=== PATIENT | male | born 1980 | race American Indian/Alaskan Native ===

== ENCOUNTER 2020-10-22 11:22 | Inpatient (IN) | payer OTHER, SELFPAY ==
[2020-10-22] MEDS ORDERED: SODIUM CHLORIDE 0.9% 1000 ML 1,000 ML IV ONE ×2 (11:58→14:59)
--- NOTE | 2020-10-22 11:58 | Event Note ---
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 Symptoms associated with a productive cough, fatigue, general aches and pains reports no diarrhea, no constipation, no hemoptysis no hematemesis no hematochezia This initial assessment/diagnostic orders/clinical plan/treatment(s) is/are subject to change based on patients health status, clinical progression and re- assessment by fellow clinical providers in the ED. Further treatment and workup at subsequent clinical providers discretion. Patient/guardian urged not to elope from the ED as their condition may be serious if not clinically assessed and managed. Initial orders include: Shortness of breath work-up recommended Covid screen
--- NOTE | 2020-10-22 12:33 | XRay Report ---
CHEST 2 VIEWS INDICATION / CLINICAL INFORMATION: Dyspnea. COMPARISON: None available. FINDINGS: SUPPORT DEVICES: None. HEART / MEDIASTINUM: No significant abnormality. LUNGS / PLEURA: Bilateral diffuse airspace opacities. No pneumothorax. ADDITIONAL FINDINGS: No significant additional findings. IMPRESSION: 1. Bilateral diffuse airspace opacities compatible with pneumonia. Signer Name: Lemuel Lino MD Signed: 10/22/2020 12:29 PM Workstation Name: [id number]
[2020-10-22 12:42] LABS: Hematocrit 47.2 % (35.5-45.6); Hemoglobin 15.6 gm/dl (11.8-15.2); Mean Corpuscular HGB Conc 33 % (32-34); Mean Corpuscular Volume 92 fl (84-94); Platelet Count 355 K/mm3 (140-440); Red Blood Count 5.12 M/mm3 (3.65-5.03); Red Cell Distribution Width 15.1 % (13.2-15.2)
[2020-10-22 12:55] LABS: Albumin 3.6 g/dL (3.9-5)
[2020-10-22] MEDS ORDERED: dexAMETHasone 4 MG/ML VIAL IV ONE ×2 (13:50→18:00)
[2020-10-22] MEDS ORDERED: cefTRIAXone/NS 1 GM/50 ML 1 GM/50 ML BAG IV ONE (13:51)
[2020-10-22] MEDS ORDERED: AZITHROMYCIN/NS 500 MG/250 ML 500 MG/250 ML BAG IV ONE (13:51)
--- NOTE | 2020-10-22 13:55 | Emergency Department Report ---
HPI - General Chief Complaint: Dyspnea/Respdistress Time Seen by Provider: 10/22/20 13:49 - HPI HPI: This is a 40-year-old -[place] male presents to the emergency department with a complaint of a 3-week history of progressively worsening shortness of breath, nausea with vomiting, dehydration, and the patient says that he has lost 15 pounds. Patient found out he was positive for COVID-19 about 1 week ago. He denies any past medical history. He denies any tobacco or illicit drug use. 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 He has not taken anything for symptoms prior to presentation today. Patient had a room air oxygen saturation of 87%. He went up into the mid to high 90s on 4 L oxygen via nasal cannula. ED Past Medical Hx - Past Medical History Previous Medical History?: No - Surgical History Past Surgical History?: No ED Review of Systems ROS: Stated complaint: SOB Other details as noted in HPI Comment: All other systems reviewed and negative Constitutional: denies: chills, fever Eyes: denies: eye pain, vision change ENT: denies: ear pain, throat pain Respiratory: cough, shortness of breath Cardiovascular: denies: palpitations, edema Endocrine: unexplained weight loss Gastrointestinal: nausea, vomiting Genitourinary: denies: dysuria, discharge Musculoskeletal: myalgia. denies: joint swelling Skin: denies: rash, lesions Neurological: denies: numbness, paresthesias Physical Exam - Physical Exam Vital Signs: Vital Signs 10/22/20 10/22/20 11:33 12:01 Temperature 99.4 F Pulse Rate 96 H Respiratory 18 Rate Blood Pressure 156/83 O2 Sat by Pulse 87 99 Oximetry Physical Exam: GENERAL: The patient is ill-appearing. HENT: Normocephalic. Atraumatic. Patient has moist mucous membranes. EYES: Extraocular motions are intact. NECK: Supple. Trachea is midline. CHEST/LUNGS: Rhonchi bilaterally. There is tachypnea with some mild conversational dyspnea. HEART/CARDIOVASCULAR: Regular. There is no tachycardia. There is no murmur. ABDOMEN: Abdomen is soft, nontender. Patient has normal bowel sounds. There is no abdominal distention. SKIN: Skin is warm and dry. NEURO: The patient is awake, alert, and oriented. The patient is cooperative. The patient has no focal neurologic deficits. Normal speech. MUSCULOSKELETAL: There is no tenderness or deformity. There is no limitation range of motion. ED Course Vital Signs 10/22/20 10/22/20 11:33 12:01 Temperature 99.4 F Pulse Rate 96 H Respiratory 18 Rate Blood Pressure 156/83 O2 Sat by Pulse 87 99 Oximetry ED Medical Decision Making - Lab Data Result diagrams: 10/22/20 12:16 10/22/20 12:16 Lab Results 10/22/20 10/22/20 10/22/20 Range/Units 12:16 12:16 14:04 WBC 12.3 H (4.5-11.0) K/mm3 RBC 5.12 H (3.65-5.03) M/mm3 Hgb 15.6 H (11.8-15.2) gm/dl Hct 47.2 H (35.5-45.6) % MCV 92 (84-94) fl MCH 31 (28-32) pg MCHC 33 (32-34) % RDW 15.1 (13.2-15.2) % Plt Count 355 (140-440) K/mm3 D-Dimer 872.83 H (0-234) ng/mlDDU Sodium 132 L (137-145) mmol/L Potassium 5.0 (3.6-5.0) mmol/L Chloride 98.2 (98-107) mmol/L Carbon Dioxide 19 L (22-30) mmol/L Anion Gap 20 mmol/L BUN 47 H (9-20) mg/dL Creatinine 4.2 H (0.8-1.3) mg/dL Estimated GFR 19 ml/min BUN/Creatinine Ratio 11 % Glucose 123 H (75-100) mg/dL Calcium 9.0 (8.4-10.2) mg/dL Total Bilirubin 0.50 (0.1-1.2) mg/dL AST 127 H (5-40) units/L ALT 113 H (7-56) units/L Alkaline Phosphatase 56 (35-129) units/L Lactate Dehydrogenase (91-180) units/L C-Reactive Protein (0.00-1.30) mg/dL NT-Pro-B Natriuret Pep (0-450) pg/mL Total Protein 8.2 (6.3-8.2) g/dL Albumin 3.6 L (3.9-5) g/dL Albumin/Globulin Ratio 0.8 % 10/22/ Range/Units 14:04 WBC (4.5-11.0) K/mm3 RBC (3.65-5.03) M/mm3 Hgb (11.8-15.2) gm/dl Hct (35.5-45.6) % MCV (84-94) fl MCH (28-32) pg MCHC (32-34) % RDW (13.2-15.2) % Plt Count (140-440) K/mm3 D-Dimer (0-234) ng/mlDDU Sodium (137-145) mmol/L Potassium (3.6-5.0) mmol/L Chloride (98-107) mmol/L Carbon Dioxide (22-30) mmol/L Anion Gap mmol/L BUN (9-20) mg/dL Creatinine (0.8-1.3) mg/dL Estimated GFR ml/min BUN/Creatinine Ratio % Glucose (75-100) mg/dL Calcium (8.4-10.2) mg/dL Total Bilirubin (0.1-1.2) mg/dL AST (5-40) units/L ALT (7-56) units/L Alkaline Phosphatase (35-129) units/L Lactate Dehydrogenase 709 H (91-180) units/L C-Reactive Protein 17.30 H (0.00-1.30) mg/dL NT-Pro-B Natriuret Pep 83.97 (0-450) pg/mL Total Protein (6.3-8.2) g/dL Albumin (3.9-5) g/dL Albumin/Globulin Ratio % - Radiology Data Radiology results: image reviewed interpreted by me: Chest x-ray shows bilateral patchy opacities concerning for pneumonia. - Medical Decision Making This patient presents to the emergency department with a 3-week history of shortness of breath, chills, nausea with vomiting, 15 pound weight loss, cough. He was found to be Covid positive about 1 week ago. The patient presents to the emergency department hypoxic with a room air oxygen saturation of 87%. Initially the patient went up to the mid 90s with 4 L oxygen via nasal cannula. At this time the patient is 89% on 5 L. Respiratory therapy has been contacted to evaluate for high flow. Chest x-ray shows bilateral patchy infiltrates/opacities concerning for pneumonia. Patient's labs are significant for acute renal failure with a GFR of 19, elevated LFTs, and elevated inflammatory markers such as D-dimer, LDH and CRP. Patient has been given IV Decadron, IV antibiotics, IV fluid resuscitation. He will be admitted to the hospital for further evaluation and treatment was accepted for admission by the hospitalist, Dr. Mcnair. Critical Care Time: Yes Critical care time in (mins) excluding proc time.: 35 Critical care attestation.: If time is entered above; I have spent that time in minutes in the direct care of this critically ill patient, excluding procedure time. Critical care time was spent on this patient in doing his initial evaluation, multiple reev aluations, ordering and interpretation of labs and imaging, IV Decadron, IV antibiotics, IV fluid resuscitation, multiple reevaluations of the patient. Critical Care Time: 35 minutes ED Disposition Clinical Impression: Suspected COVID-19 virus infection, Elevated LFTs, Hypoxia Bilateral pneumonia Qualifiers: Pneumonia type: due to unspecified organism Lung location: unspecified part of lung Qualified Code(s): J18.9 - Pneumonia, unspecified organism Acute renal failure Qualifiers: Acute renal failure type: unspecified Qualified Code(s): N17.9 - Acute kidney failure, unspecified Disposition: 09 ADMITTED INPATIENT Is pt being admited?: Yes Condition: Serious Instructions: Bacterial Pneumonia (ED) Time of Disposition: 15:38
[2020-10-22] MEDS ORDERED: ACETAMINOPHEN 325 MG TAB PO PRN (14:57)
[2020-10-22] MEDS ORDERED: ALBUTEROL 2.5 MG/3 ML NEBU IH PRN (14:57)
--- NOTE | 2020-10-22 14:57 | History and Physical Report ---
History of Present Illness Chief complaint: It is hard to breathe History of present illness: 40 YO Male with Obesity Hypoventilation Syndrome, Coronavirus Infection diagnosed 1 week ago presents to ED for evaluation. Patient reports "it is hard for me to breathe". Patient states that he has experienced shortness of breath, subjective fever, loss of sense of smell, loss of sense of taste, fatigue, malaise, nausea, multiple episodes of vomiting, diminished oral intake and a subjective weight loss of 15 pounds over the past 1 week. Patient transported to [facility] via private vehicle for further care and evaluation of the aforementioned symptoms. The patient was seen and evaluated in the emergency department. All lab and imaging studies reviewed. Patient was found to have a pulse oximetry of 84% on exertion which is consistent with acute hypoxemic respiratory failure. Chest x-ray revealed bilateral pneumonia. Patient admitted to medical floor and initiated on coronavirus protocol as well as pneumonia protocol. Patient denies chills, chest pain, palpitations, skin rash. Patient knowledges suspected co ntact with coronavirus positive individuals. No prior admission for review. No medication listed at time of admission reconciliation. Past History Past Medical History: other (See HPI) Past Surgical History: No surgical history, Other (Reviewed) Social history: . denies: smoking, alcohol abuse, prescription drug abuse Family history: hypertension Medications and Allergies Allergies Allergy/AdvReac Type Severity Reaction Status Date / Time No Known Allergies Allergy Verified 10/22/20 15:01 Active Meds: Active Medications Sodium Chloride (Nacl 0.9% 1000 Ml) 1,000 mls @ 125 mls/hr IV ONCE ONE Stop: 10/22/20 19:57 Review of Systems Constitutional: weight loss, fever, fatigue, weakness, malaise Ears, nose, mouth and throat: other (Loss of sense of smell, loss of sense of taste), no ear pain, no decreased hearing Cardiovascular: lightheadedness, no chest pain, no orthopnea Respiratory: cough Gastrointestinal: nausea, vomiting, no abdominal pain Genitourinary Male: no hematuria, no flank pain, no discharge, no urinary frequency, no urinary hesitancy Rectal: no pain, no incontinence, no bleeding Musculoskeletal: no neck stiffness, no neck pain, no shooting arm pain, no low back pain, no shooting leg pain, no leg numbness/tingling Integumentary: no rash, no pruritis, no redness, no wounds, no jaundice Neurological: no head injury, no transient paralysis, no parathesias, no numbness, no tingling Psychiatric: no anxiety, no change in sleep habits, no insomnia, no hypersomnia, no change in libido, no suicidal ideation Endocrine: no cold intolerance, no polyphagia, no polydipsia, no nocturia Hematologic/Lymphatic: no easy bruising, no lymphadenopathy, no lymphedema Allergic/Immunologic: no urticaria, no allergic rhinitis, no persistent infections, no anaphylaxis Exam - Constitutional Vitals: Temp Pulse Resp BP Pulse Ox 99.4 F 96 H 18 156/83 99 10/22/20 11:33 10/22/20 11:33 10/22/20 11:33 10/22/20 11:33 10/22/20 12:01 General appearance: Present: mild distress, obese - EENT Eyes: Present: PERRL ENT: hearing intact, clear oral mucosa - Neck Neck: Present: supple, normal ROM - Respiratory Respiratory effort: labored, accessory muscle use, stridor Respiratory: bilateral: diminished, rhonchi - Cardiovascular Heart Sounds: Present: S1 & S2. Absent: rub, click - Extremities Extremities: pulses symmetrical, No edema Peripheral Pulses: within normal limits - Abdominal General gastrointestinal: Present: soft, non-tender, non-distended, normal bowel sounds Male genitourinary: Present: normal - Integumentary Integumentary: Present: clear, dry, clammy, decreased turgor - Musculoskeletal Musculoskeletal: generalized weakness - Psychiatric Psychiatric: appropriate mood/affect, intact judgment & insight - Neurologic Neurologic: CNII-XII intact, moves all extremities Results - Labs CBC & Chem 7: 10/22/20 12:16 10/22/20 12:16 Labs: Abnormal lab results 10/22/20 10/22/20 10/22/20 Range/Units 12:16 12:16 14:04 WBC 12.3 H (4.5-11.0) K/mm3 RBC 5.12 H (3.65-5.03) M/mm3 Hgb 15.6 H (11.8-15.2) gm/dl Hct 47.2 H (35.5-45.6) % D-Dimer 872.83 H (0-234) ng/mlDDU Sodium 132 L (137-145) mmol/L Carbon Dioxide 19 L (22-30) mmol/L BUN 47 H (9-20) mg/dL Creatinine 4.2 H (0.8-1.3) mg/dL Glucose 123 H (75-100) mg/dL AST 127 H (5-40) units/L ALT 113 H (7-56) units/L Albumin 3.6 L (3.9-5) g/dL Assessment and Plan - Patient Problems (1) Acute hypoxemic respiratory failure Current Visit: Yes Status: Acute Plan to address problem: Chest x-ray, supplemental oxygen, pulse oximetry, nebulizer therapy, pulmonary toilet (2) Pneumonia Current Visit: Yes Status: Acute Plan to address problem: Pneumonia protocol: Chest x-ray, CBC, CMP, supplemental oxygen, pulse oximetry, nebulizer therapy, blood culture. (3) Obesity hypoventilation syndrome Current Visit: Yes Status: Acute Plan to address problem: Balanced diet, increase physical activity at discharge, outpatient pulmonary follow-up for sleep study, (4) Suspected COVID-19 virus infection Current Visit: Yes Status: Acute Plan to address problem: Coronavirus protocol: IV antibiotic therapy, IV steroid therapy, supplemental oxygen, pulse oximetry, vitamin C therapy, vitamin D therapy, zinc therapy, prone positioning while in bed, prophylactic anticoagulation. (5) DVT prophylaxis Current Visit: Yes Status: Acute Plan to address problem: SCDs bilateral lower extremities while in bed, prophylactic anticoagulation.
[2020-10-22 15:06] LABS: C-Reactive Protein 17.3 mg/dL (0.00-1.30)
[2020-10-22 17:11] LABS: Platelet Estimate Consistent w Auto; Promyelocytes # (Manual) 0.4 K/mm3; Total Cells Counted 100
[2020-10-22] MEDS: AZITHROMYCIN/NS 500 MG/250 ML 500 MG/250 ML BAG IV SCH (17:19)
[2020-10-22] MEDS: cefTRIAXone/NS 2 GM/100 ML 2 GM/100 ML BAG IV SCH (18:57)
[2020-10-22] MEDS: oxyCODONE /ACETAMINOPHEN 5-325MG TAB PO PRN (21:15)
[2020-10-22] MEDS: FAMOTIDINE 10 MG TAB PO SCH (22:21)
[2020-10-22] MEDS: HEPARIN 5,000 UNIT/1 ML VIAL SUB-Q SCH (22:22)
[2020-10-22] MEDS: methylPREDNISolone Sod Succinate 40 MG/1 ML INJ IV SCH (22:22)
[2020-10-22] MEDS: ZINC SULFATE 220 MG CAP PO SCH (22:23)
[2020-10-22] MEDS: ASCORBIC ACID 500 MG TAB PO SCH (22:23)
[2020-10-23] MEDS: ONDANSETRON 4 MG/2 ML INJ IV PRN ×2 (01:55→23:42)
[2020-10-23 07:22] LABS: Hemoglobin 15.6 gm/dl (11.8-15.2); Mean Corpuscular HGB Conc 34 % (32-34); Mean Corpuscular Volume 91 fl (84-94); Platelet Count 339 K/mm3 (140-440); Red Blood Count 5.06 M/mm3 (3.65-5.03); Red Cell Distribution Width 14.9 % (13.2-15.2)
[2020-10-23 07:42] LABS: Calcium 8.8 mg/dL (8.4-10.2)
--- NOTE | 2020-10-23 10:05 | Consultation ---
History of Present Illness - Reason for Consult acute renal failure - History of Present Illness Pleasant 40 y/o AAM with no previous PMHx, presented to the ED secondary to worsening shortness of breath and cough over the past 3 weeks. Diagnosed with COVID-19 pneumonia. Initial labs were concerning for KACIE without any previous h/o renal insufficiency for which nephrology is consulted at this time. Past History Past Medical History: other (See HPI) Past Surgical History: No surgical history, Other (Reviewed) Social history: . denies: smoking, alcohol abuse, prescription drug abuse Family history: hypertension Medications and Allergies Allergies Allergy/AdvReac Type Severity Reaction Status Date / Time No Known Allergies Allergy Verified 10/22/20 15:01 Active Meds: Active Medications Acetaminophen (Acetaminophen 325 Mg Tab) 650 mg PO Q4H PRN PRN Reason: Pain MILD(1-3)/Fever >100.5/THOMPSON Last Admin: 10/22/20 17:21 Dose: 650 mg Documented by: Albuterol (Albuterol 2.5 Mg/3 Ml Nebu) 2.5 mg IH Q4HRT PRN PRN Reason: Shortness Of Breath Ascorbic Acid (Ascorbic Acid 500 Mg Tab) 500 mg PO BID [facility] Last Admin: 10/22/20 22:23 Dose: 500 mg Documented by: Cholecalciferol (Cholecalciferol (Vit D3) 1000 Unit (25 Mcg) Tab) 1,000 unit PO QDAY [facility] Famotidine (Famotidine 10 Mg Tab) 10 mg PO BID [facility] Last Admin: 10/22/20 22:21 Dose: 10 mg Documented by: Heparin Sodium (Porcine) (Heparin 5,000 Unit/1 Ml Vial) 5,000 unit SUB-Q Q12HR [facility] Last Admin: 10/22/20 22:22 Dose: 5,000 unit Documented by: Hydromorphone HCl (Hydromorphone 1 Mg/1 Ml Inj) 0.5 mg IV Q12H PRN PRN Reason: Pain , Severe (7-10) Ceftriaxone Sodium (Rocephin/Ns 2 Gm/100 Ml) 2 gm in 100 mls @ 200 mls/hr IV Q24H [facility]; Protocol Last Admin: 10/22/20 18:57 Dose: 200 mls/hr Documented by: Azithromycin (Zithromax/Ns) 500 mg in 250 mls @ 250 mls/hr IV Q24H [facility]; Protocol Last Admin: 10/22/20 17:19 Dose: 250 mls/hr Documented by: Methylprednisolone Sodium Succinate (Methylprednisolone Sod Succinate 40 Mg/1 Ml Inj) 40 mg IV Q8HR [facility] Last Admin: 10/22/20 22:22 Dose: 40 mg Documented by: Ondansetron HCl (Ondansetron 4 Mg/2 Ml Inj) 4 mg IV Q8H PRN PRN Reason: Nausea And Vomiting Last Admin: 10/23/20 01:55 Dose: 4 mg Documented by: Oxycodone/Acetaminophen (Oxycodone /Acetaminophen 5-325mg Tab) 1 tab PO Q12H PRN PRN Reason: Pain, Moderate (4-6) Last Admin: 10/22/20 21:15 Dose: 1 tab Documented by: Sodium Chloride (Sodium Chloride 0.9% 10 Ml Flush Syringe) 10 ml IV BID [facility] Last Admin: 10/22/20 22:23 Dose: 10 ml Documented by: Sodium Chloride (Sodium Chloride 0.9% 10 Ml Flush Syringe) 10 ml IV PRN PRN PRN Reason: LINE FLUSH Zinc Sulfate (Zinc Sulfate 220 Mg Cap) 220 mg PO BID [facility] Last Admin: 10/22/20 22:23 Dose: 220 mg Documented by: Review of Systems Constitutional: fatigue, weakness Cardiovascular: orthopnea Respiratory: cough, congestion Exam - Vital Signs Vital signs: Vital Signs Temp Pulse Resp BP Pulse Ox 99.4 F 96 H 18 156/83 87 10/22/20 11:33 10/22/20 11:33 10/22/20 11:33 10/22/20 11:33 10/22/20 11:33 - General Appearance General appearance: well-developed, well-nourished, appears stated age EENT: ATNC Neck: Present: neck supple Respiratory: Wheezes, Decreased Breath Sounds Heart: regular Gastrointestinal: Present: normal Integumentary: no rash Neurologic: no focal deficit, alert and oriented x3 Musculoskeletal: Present: deferred Psychiatric: cooperative Results - Lab Results 10/23/20 07:06 10/23/20 07:06 Most recent lab results Calcium 8.8 mg/dL (8.4-10.2) 10/23/20 07:06 Assessment and Plan - Patient Problems (1) Acute renal failure Current Visit: Yes Status: Acute Qualifiers: Acute renal failure type: unspecified Qualified Code(s): N17.9 - Acute kidney failure, unspecified Plan to address problem: Likely pre-renal vs ATN. He remains non oliguric at this time. Will obtain renal US, UA, urine electrolytes, and start on gentle IVF hydration. (2) Hyperkalemia Current Visit: Yes Status: Acute Plan to address problem: Likely in the setting of KACIE. Anticipate that with adequate IVF hydration and increased distal tubule sodium delivery, we should see increase in potassium excretion. (3) Pneumonia due to COVID-19 virus Current Visit: Yes Status: Acute Plan to address problem: Management per primary team,/ID (4) Hypoxia Current Visit: Yes Status: Acute Plan to address problem: Stable on supplemental oxygen via NC at this time.
[2020-10-23] MEDS: CHOLECALCIFEROL (VIT D3) 1000 UNIT (25 mcg) TAB PO SCH (10:52)
[2020-10-23] MEDS: ASCORBIC ACID 500 MG TAB PO SCH ×2 (10:52→21:52)
[2020-10-23] MEDS: FAMOTIDINE 10 MG TAB PO SCH ×2 (10:52→21:52)
[2020-10-23] MEDS: ZINC SULFATE 220 MG CAP PO SCH ×2 (10:52→21:52)
[2020-10-23] MEDS: HEPARIN 5,000 UNIT/1 ML VIAL SUB-Q SCH ×2 (10:55→21:52)
[2020-10-23] MEDS: SODIUM CHLORIDE 0.9% 1000 ML 1,000 ML IV SCH ×2 (10:56→22:00)
--- NOTE | 2020-10-23 11:39 | Consultation ---
History of Present Illness Consult date: 10/23/20 Requesting physician: MIGUEL CARLIN Reason for consult: hypoxemia History of present illness: 40 y/o male with acute respiratory failure secondary to COVID 19 pneumonia. Past History Past Medical History: other (See HPI) Past Surgical History: No surgical history, Other (Reviewed) Social history: . denies: smoking, alcohol abuse, prescription drug abuse Family history: hypertension Medications and Allergies Allergies Allergy/AdvReac Type Severity Reaction Status Date / Time No Known Allergies Allergy Verified 10/22/20 15:01 Active Meds: Active Medications Acetaminophen (Acetaminophen 325 Mg Tab) 650 mg PO Q4H PRN PRN Reason: Pain MILD(1-3)/Fever >100.5/THOMPSON Last Admin: 10/22/20 17:21 Dose: 650 mg Documented by: Albuterol (Albuterol 2.5 Mg/3 Ml Nebu) 2.5 mg IH Q4HRT PRN PRN Reason: Shortness Of Breath Ascorbic Acid (Ascorbic Acid 500 Mg Tab) 500 mg PO BID [facility] Last Admin: 10/23/20 10:52 Dose: 500 mg Documented by: Cholecalciferol (Cholecalciferol (Vit D3) 1000 Unit (25 Mcg) Tab) 1,000 unit PO QDAY [facility] Last Admin: 10/23/20 10:52 Dose: 1,000 unit Documented by: Famotidine (Famotidine 10 Mg Tab) 10 mg PO BID [facility] Last Admin: 10/23/20 10:52 Dose: 10 mg Documented by: Heparin Sodium (Porcine) (Heparin 5,000 Unit/1 Ml Vial) 5,000 unit SUB-Q Q12HR [facility] Last Admin: 10/23/20 10:55 Dose: 5,000 unit Documented by: Hydromorphone HCl (Hydromorphone 1 Mg/1 Ml Inj) 0.5 mg IV Q12H PRN PRN Reason: Pain , Severe (7-10) Ceftriaxone Sodium (Rocephin/Ns 2 Gm/100 Ml) 2 gm in 100 mls @ 200 mls/hr IV Q24H [facility]; Protocol Last Admin: 10/22/20 18:57 Dose: 200 mls/hr Documented by: Azithromycin (Zithromax/Ns) 500 mg in 250 mls @ 250 mls/hr IV Q24H [facility]; Protocol Last Admin: 10/22/20 17:19 Dose: 250 mls/hr Documented by: Sodium Chloride (Nacl 0.9% 1000 Ml) 1,000 mls @ 100 mls/hr IV DIRECT [facility] Last Admin: 10/23/20 10:56 Dose: 100 mls/hr Documented by: Methylprednisolone Sodium Succinate (Methylprednisolone Sod Succinate 40 Mg/1 Ml Inj) 40 mg IV Q8HR [facility] Last Admin: 10/22/20 22:22 Dose: 40 mg Documented by: Ondansetron HCl (Ondansetron 4 Mg/2 Ml Inj) 4 mg IV Q8H PRN PRN Reason: Nausea And Vomiting Last Admin: 10/23/20 01:55 Dose: 4 mg Documented by: Oxycodone/Acetaminophen (Oxycodone /Acetaminophen 5-325mg Tab) 1 tab PO Q12H PRN PRN Reason: Pain, Moderate (4-6) Last Admin: 10/22/20 21:15 Dose: 1 tab Documented by: Sodium Chloride (Sodium Chloride 0.9% 10 Ml Flush Syringe) 10 ml IV BID [facility] Last Admin: 10/23/20 10:53 Dose: 10 ml Documented by: Sodium Chloride (Sodium Chloride 0.9% 10 Ml Flush Syringe) 10 ml IV PRN PRN PRN Reason: LINE FLUSH Zinc Sulfate (Zinc Sulfate 220 Mg Cap) 220 mg PO BID [facility] Last Admin: 10/23/20 10:52 Dose: 220 mg Documented by: Physical Examination Vital signs: Vital Signs Temp Pulse Resp BP Pulse Ox 99.4 F 96 H 18 156/83 87 10/22/20 11:33 10/22/20 11:33 10/22/20 11:33 10/22/20 11:33 10/22/20 11:33 Results - Laboratory Findings CBC and BMP: 10/24/20 04:58 10/24/20 04:58 PT/INR, D-dimer D-Dimer 872.83 ng/mlDDU (0-234) H 10/22/20 14:04 Abnormal lab findings: Abnormal Labs 10/22/20 10/22/20 10/22/20 12:16 12:16 14:04 WBC 12.3 H RBC 5.12 H Hgb 15.6 H Hct 47.2 H Seg Neuts % (Manual) 79.0 H Seg Neutrophils # Man 9.7 H D-Dimer 872.83 H Sodium 132 L Potassium Carbon Dioxide 19 L BUN 47 H Creatinine 4.2 H Glucose 123 H AST 127 H ALT 113 H Lactate Dehydrogenase C-Reactive Protein Albumin 3.6 L 10/22/20 10/23/20 10/23/20 14:04 07:06 07:06 WBC RBC 5.06 H Hgb 15.6 H Hct 46.0 H Seg Neuts % (Manual) Seg Neutrophils # Man D-Dimer Sodium 133 L Potassium 5.5 H Carbon Dioxide 21 L BUN 45 H Creatinine 3.2 H Glucose 150 H AST ALT Lactate Dehydrogenase 709 H C-Reactive Protein 17.30 H Albumin - Diagnostic Findings Chest x-ray: image reviewed (bilateral patchy infiltrates) Assessment and Plan 40 y/o male with acute respiratory failure, concern for COVID positive state with pneumonia and renal failure 1. AGree with steroids 2. Prone if able 3. Follow up renal recs 4. If covid positive plus renal failure, extremely guarded prognosis.
--- NOTE | 2020-10-23 12:17 | Progress Note ---
Assessment and Plan Assessment and plan: 40 YO Male with Obesity Hypoventilation Syndrome, Coronavirus Infection diagnosed 1 week ago presents to ED for evaluation. Patient reports "it is hard for me to breathe". Patient states that he has experienced shortness of breath, subjective fever, loss of sense of smell, loss of sense of taste, fatigue, malaise, nausea, multiple episodes of vomiting, diminished oral intake and a subjective weight loss of 15 pounds over the past 1 week. Patient transported to [facility] via private vehicle for further care and evaluation of the aforementioned symptoms. The patient was seen and evaluated in the emergency department. All lab and imaging studies reviewed. Patient was found to have a pulse oximetry of 84% on exertion which is consistent with acute hypoxemic respiratory failure. Chest x-ray revealed bilateral pneumonia. Patient admitted to medical floor and initiated on coronavirus protocol as well as pneumonia protocol. Patient denies chills, chest pain, palpitations, skin rash. Patient knowledges suspected contact with coronavirus positive individuals. No prior admission for review. No medication listed at time of admission reconciliation. 10/23: Patient seen and examined today. We will increase him to high flow due to severe hypoxia. Have consulted pulmonary and also infectious disease. He is started on high-dose steroids. Likely not a candidate for remdesivir due to renal dysfunction. I have encouraged him to prone also discussed with his . Unfortunately he is unvaccinated. His also was affected but he states that hers was mild. Wean oxygen as tolerated. Will defer Actemra to infectious disease team. Renal function showing some slight improvement will give a dose of Kayexalate for the hyperkalemia. Chest x-ray shows bilateral diffuse opacities (1) Acute hypoxemic respiratory failure Current Visit: Yes Status: Acute Plan to address problem: Chest x-ray, supplemental oxygen, pulse oximetry, nebulizer therapy, pulmonary toilet (2) Pneumonia Current Visit: Yes Status: Acute Plan to address problem: Pneumonia protocol: Chest x-ray, CBC, CMP, supplemental oxygen, pulse oximetry, nebulizer therapy, blood culture. (3) Obesity hypoventilation syndrome Current Visit: Yes Status: Acute Plan to address problem: Balanced diet, increase physical activity at discharge, outpatient pulmonary follow-up for sleep study, (4) COVID-19 virus infection Current Visit: Yes Status: Acute Plan to address problem: Coronavirus protocol: IV antibiotic therapy, IV steroid therapy, supplemental oxygen, pulse oximetry, vitamin C therapy, vitamin D therapy, zinc therapy, prone positioning while in bed, prophylactic anticoagulation. (5) Acute kidney injury with vasomotor nephropathy (6) Hyperkalemia (7) DVT prophylaxis Current Visit: Yes Status: Acute Plan to address problem: SCDs bilateral lower extremities while in bed, prophylactic anticoagulation. History Interval history: Patient seen and examined this morning. During my examination noted his saturation was 85% on 4 L of oxygen. Discussed with nursing staff to put him on high flow he denies any chest pain chest weakness. Hospitalist Physical - Physical exam Narrative exam: VITAL SIGNS: Reviewed. GENERAL: The patient appears normally developed, lethargic with weak cough vital signs as documented. HEAD: No signs of head trauma. EYES: Pupils are equal. Extraocular motions intact. EARS: Hearing grossly intact. MOUTH: Oropharynx is normal. NECK: No adenopathy, no JVD. CHEST: Chest with diminished breath sounds bilaterally. No wheezes, rales, or rhonchi. CARDIAC: Regular rate and rhythm. S1 and S2, without murmurs, gallops, or rubs. VASCULAR: No Edema. Peripheral pulses normal and equal in all extremities. ABDOMEN: Soft, non tender and non distended. No rebound or guarding, and no masses palpated. Bowel Sounds normal. MUSCULOSKELETAL: Good range of motion of all major joints. Extremities without clubbing, cyanosis or edema. NEUROLOGIC EXAM: Alert and oriented x 3 No focal sensory or strength deficits. Speech normal. Follows commands. PSYCHIATRIC: Mood normal. SKIN: detail exam as documented in skin assessment - Constitutional Vitals: Temp Pulse Resp BP Pulse Ox 100.3 F H 95 H 22 133/91 92 10/22/20 19:00 10/22/20 19:00 10/22/20 19:00 10/22/20 19:00 10/23/20 09:59 General appearance: Present: mild distress, obese Results - Labs CBC & Chem 7: 10/23/20 07:06 10/23/20 07:06 Labs: Laboratory Last Values WBC 9.8 K/mm3 (4.5-11.0) 10/23/20 07:06 RBC 5.06 M/mm3 (3.65-5.03) H 10/23/20 07:06 Hgb 15.6 gm/dl (11.8-15.2) H 10/23/20 07:06 Hct 46.0 % (35.5-45.6) H 10/23/20 07:06 MCV 91 fl (84-94) 10/23/20 07:06 MCH 31 pg (28-32) 10/23/20 07:06 MCHC 34 % (32-34) 10/23/20 07:06 RDW 14.9 % (13.2-15.2) 10/23/20 07:06 Plt Count 339 K/mm3 (140-440) 10/23/20 07:06 Add Manual Diff Complete 10/22/20 12:16 Total Counted 100 10/22/20 12:16 Seg Neuts % (Manual) 79.0 % (40.0-70.0) H 10/22/20 12:16 Lymphocytes % (Manual) 14.0 % (13.4-35.0) 10/22/20 12:16 Reactive Lymphs % (Man) 1.0 % 10/22/20 12:16 Monocytes % (Manual) 3.0 % (0.0-7.3) 10/22/20 12:16 Promyelocytes % 3.0 % 10/22/20 12:16 Nucleated RBC % Not Reportable 10/22/20 12:16 Seg Neutrophils # Man 9.7 K/mm3 (1.8-7.7) H 10/22/20 12:16 Band Neutrophils # 0.0 K/mm3 10/22/20 12:16 Lymphocytes # (Manual) 1.7 K/mm3 (1.2-5.4) 10/22/20 12:16 Abs React Lymphs (Man) 0.1 K/mm3 10/22/20 12:16 Monocytes # (Manual) 0.4 K/mm3 (0.0-0.8) 10/22/20 12:16 Eosinophils # (Manual) 0.0 K/mm3 (0.0-0.4) 10/22/20 12:16 Basophils # (Manual) 0.0 K/mm3 (0.0-0.1) 10/22/20 12:16 Metamyelocytes # 0.0 K/mm3 10/22/20 12:16 Myelocytes # 0.0 K/mm3 10/22/20 12:16 Promyelocytes # 0.4 K/mm3 10/22/20 12:16 Blast Cells # 0.0 K/mm3 10/22/20 12:16 WBC Morphology Not Reportable 10/22/20 12:16 Hypersegmented Neuts Not Reportable 10/22/20 12:16 Hyposegmented Neuts Not Reportable 10/22/20 12:16 Hypogranular Neuts Not Reportable 10/22/20 12:16 Smudge Cells Not Reportable 10/22/20 12:16 Toxic Granulation Not Reportable 10/22/20 12:16 Toxic Vacuolation Not Reportable 10/22/20 12:16 Dohle Bodies Not Reportable 10/22/20 12:16 Pelger-Huet Anomaly Not Reportable 10/22/20 12:16 Fariba Rods Not Reportable 10/22/20 12:16 Platelet Estimate Consistent w auto 10/22/20 12:16 Clumped Platelets Not Reportable 10/22/20 12:16 Plt Clumps, EDTA Not Reportable 10/22/20 12:16 Large Platelets Not Reportable 10/22/20 12:16 Giant Platelets Not Reportable 10/22/20 12:16 Platelet Satelliting Not Reportable 10/22/20 12:16 Plt Morphology Comment Not Reportable 10/22/20 12:16 RBC Morphology Not Reportable 10/22/20 12:16 Dimorphic RBCs Not Reportable 10/22/20 12:16 Polychromasia Not Reportable 10/22/20 12:16 Hypochromasia Not Reportable 10/22/20 12:16 Poikilocytosis Not Reportable 10/22/20 12:16 Anisocytosis Not Reportable 10/22/20 12:16 Microcytosis Not Reportable 10/22/20 12:16 Macrocytosis Not Reportable 10/22/20 12:16 Spherocytes Not Reportable 10/22/20 12:16 Pappenheimer Bodies Not Reportable 10/22/20 12:16 Sickle Cells Not Reportable 10/22/20 12:16 Target Cells Not Reportable 10/22/20 12:16 Tear Drop Cells Not Reportable 10/22/20 12:16 Ovalocytes Not Reportable 10/22/20 12:16 Helmet Cells Not Reportable 10/22/20 12:16 [place] Bodies Not Reportable 10/22/20 12:16 [place] Rings Not Reportable 10/22/20 12:16 Maggie Cells Not Reportable 10/22/20 12:16 Bite Cells Not Reportable 10/22/20 12:16 Crenated Cell Not Reportable 10/22/20 12:16 Elliptocytes Not Reportable 10/22/20 12:16 Acanthocytes (Spur) Not Reportable 10/22/20 12:16 Rouleaux Not Reportable 10/22/20 12:16 Hemoglobin C Crystals Not Reportable 10/22/20 12:16 Schistocytes Not Reportable 10/22/20 12:16 Malaria parasites Not Reportable 10/22/20 12:16 Calvin Bodies Not Reportable 10/22/20 12:16 Hem Pathologist Commnt No 10/22/20 12:16 D-Dimer 872.83 ng/mlDDU (0-234) H 10/22/20 14:04 Sodium 133 mmol/L (137-145) L 10/23/20 07:06 Potassium 5.5 mmol/L (3.6-5.0) H 10/23/20 07:06 Chloride 101.3 mmol/L (98-107) 10/23/20 07:06 Carbon Dioxide 21 mmol/L (22-30) L 10/23/20 07:06 Anion Gap 16 mmol/L 10/23/20 07:06 BUN 45 mg/dL (9-20) H 10/23/20 07:06 Creatinine 3.2 mg/dL (0.8-1.3) H 10/23/20 07:06 Estimated GFR 26 ml/min 10/23/20 07:06 BUN/Creatinine Ratio 14 % 10/23/20 07:06 Glucose 150 mg/dL (75-100) H 10/23/20 07:06 Calcium 8.8 mg/dL (8.4-10.2) 10/23/20 07:06 Total Bilirubin 0.50 mg/dL (0.1-1.2) 10/22/20 12:16 AST 127 units/L (5-40) H 10/22/20 12:16 ALT 113 units/L (7-56) H 10/22/20 12:16 Alkaline Phosphatase 56 units/L (35-129) 10/22/20 12:16 Lactate Dehydrogenase 709 units/L (91-180) H 10/22/20 14:04 C-Reactive Protein 17.30 mg/dL (0.00-1.30) H 10/22/20 14:04 NT-Pro-B Natriuret Pep 83.97 pg/mL (0-450) 10/22/20 14:04 Total Protein 8.2 g/dL (6.3-8.2) 10/22/20 12:16 Albumin 3.6 g/dL (3.9-5) L 10/22/20 12:16 Albumin/Globulin Ratio 0.8 % 10/22/20 12:16 Procalcitonin 0.50 ng/mL (<0.15) 10/22/20 14:04 Active Medications - Current Medications Current Medications: Generic Name Dose Route Start Last Admin Trade Name Freq PRN Reason Stop Dose Admin Acetaminophen 650 mg 10/22/20 14:57 10/22/20 17:21 Acetaminophen 325 Mg Tab PO 650 mg Q4H PRN Administration Pain MILD(1-3)/Fever >100.5/THOMPSON Albuterol 2.5 mg 10/22/20 14:57 Albuterol 2.5 Mg/3 Ml Nebu IH Q4HRT PRN Shortness Of Breath Ascorbic Acid 500 mg 10/22/20 22:00 10/23/20 10:52 Ascorbic Acid 500 Mg Tab PO 500 mg BID VARUN Administration Cholecalciferol 1,000 unit 10/23/20 10:00 10/23/20 10:52 Cholecalciferol (Vit D3) 1000 Unit (25 Mcg) Tab PO 1,000 unit QDAY VARUN Administration Famotidine 10 mg 10/22/20 22:00 10/23/20 10:52 Famotidine 10 Mg Tab PO 10 mg BID VARUN Administration Heparin Sodium (Porcine) 5,000 unit 10/22/20 22:00 10/23/20 10:55 Heparin 5,000 Unit/1 Ml Vial SUB-Q 5,000 unit Q12HR VARUN Administration Hydromorphone HCl 0.5 mg 10/22/20 14:57 Hydromorphone 1 Mg/1 Ml Inj IV Q12H PRN Pain , Severe (7-10) Ceftriaxone Sodium 2 gm in 100 mls @ 200 mls/hr 10/22/20 15:00 10/22/20 18:57 Rocephin/Ns 2 Gm/100 Ml IV 200 mls/hr Q24H VARUN Administration Protocol Azithromycin 500 mg in 250 mls @ 250 mls/hr 10/22/20 15:00 10/22/20 17:19 Zithromax/Ns IV 250 mls/hr Q24H VARUN Administration Protocol Sodium Chloride 1,000 mls @ 100 mls/hr 10/23/20 11:00 10/23/20 10:56 Nacl 0.9% 1000 Ml IV 100 mls/hr DIRECT VARUN Administration Methylprednisolone Sodium Succinate 40 mg 10/22/20 22:00 10/22/20 22:22 Methylprednisolone Sod Succinate 40 Mg/1 Ml Inj IV 40 mg Q8HR VARUN Administration Ondansetron HCl 4 mg 10/22/20 14:57 10/23/20 01:55 Ondansetron 4 Mg/2 Ml Inj IV 4 mg Q8H PRN Administration Nausea And Vomiting Oxycodone/Acetaminophen 1 tab 10/22/20 14:57 10/22/20 21:15 Oxycodone /Acetaminophen 5-325mg Tab PO 1 tab Q12H PRN Administration Pain, Moderate (4-6) Sodium Chloride 10 ml 10/22/20 22:00 10/23/20 10:53 Sodium Chloride 0.9% 10 Ml Flush Syringe IV 10 ml BID VARUN Administration Sodium Chloride 10 ml 10/22/20 14:57 Sodium Chloride 0.9% 10 Ml Flush Syringe IV PRN PRN LINE FLUSH Zinc Sulfate 220 mg 10/22/20 22:00 10/23/20 10:52 Zinc Sulfate 220 Mg Cap PO 220 mg BID VARUN Administration
[2020-10-23] MEDS ORDERED: SODIUM POLYSTYRENE 15 GM/60 ML ORAL LIQD PO ONE (13:00)
[2020-10-23 13:21] LABS: Bilirubin,Urine NEG (Negative); Blood,Urine MOD (Negative); Color,Urine Yellow (Yellow); Mucus,Urine FEW /HPF
[2020-10-23 14:03] LABS: Chloride, Urine 14.1 mmolL (110-250); Creatinine,Urine 147.6 mg/dL (0.1-20.0)
[2020-10-23] MEDS: oxyCODONE /ACETAMINOPHEN 5-325MG TAB PO PRN (15:07)
[2020-10-23] MEDS: methylPREDNISolone Sod Succinate 40 MG/1 ML INJ IV SCH ×4 (15:10→21:59)
[2020-10-23] MEDS: cefTRIAXone/NS 2 GM/100 ML 2 GM/100 ML BAG IV SCH (15:50)
[2020-10-23 16:37] LABS: Band Neutrophils # (Manual) 0.2 K/mm3; Myelocytes # (Manual) 0.2 K/mm3; Platelet Estimate Consistent w Auto; RBC Morphology Normal; Total Cells Counted 100
[2020-10-23] MEDS: AZITHROMYCIN/NS 500 MG/250 ML 500 MG/250 ML BAG IV SCH (18:00)
--- NOTE | 2020-10-23 19:05 | Ultrasound Report ---
ULTRASOUND RENAL INDICATION: KACIE. COMPARISON: No relevant prior imaging study available. FINDINGS: RIGHT KIDNEY: Size: 12.9 cm. Echogenicity: Normal. Parenchymal thickness: Normal. Hydronephrosis: None. Cyst or mass: None. Stones: None. LEFT KIDNEY: Size: 12.3 cm. Echogenicity: Normal. Parenchymal thickness: Normal. Hydronephrosis: None. Cyst or mass: None. Stones: None. Urinary Bladder: No significant abnormality. Free Fluid: None. Additional Findings: None. IMPRESSION 1. No acute sonographic abnormality of the kidneys. Signer Name: Baltazar Diaz MD Signed: 10/23/2020 7:00 PM Workstation Name: [id number]
[2020-10-23] MEDS: HYDROmorphone 1 MG/1 ML INJ IV PRN (23:42)
[2020-10-24] MEDS ORDERED: HYDROmorphone 1 MG/1 ML INJ IV ONE (02:44)
[2020-10-24 06:18] LABS: Hematocrit 46.9 % (35.5-45.6); Hemoglobin 15.1 gm/dl (11.8-15.2); Mean Corpuscular HGB Conc 32 % (32-34); Mean Corpuscular Volume 94 fl (84-94); Platelet Count 393 K/mm3 (140-440); Red Cell Distribution Width 15.5 % (13.2-15.2)
[2020-10-24 06:21] LABS: Albumin 3.5 g/dL (3.9-5); Calcium 9.2 mg/dL (8.4-10.2)
[2020-10-24] MEDS: methylPREDNISolone Sod Succinate 40 MG/1 ML INJ IV SCH ×3 (06:23→22:06)
[2020-10-24] MEDS ORDERED: DEXTROSE 50% IN WATER (25GM) 50 ML VIAL IV STA (08:46)
[2020-10-24] MEDS ORDERED: INSULIN REGULAR, HUMAN 100 UNITS/1 ML IV STA (08:46)
[2020-10-24] MEDS ORDERED: SODIUM POLYSTYRENE 15 GM/60 ML ORAL LIQD PO ONE (09:00)
[2020-10-24] MEDS ORDERED: DEXTROSE 50% IN WATER (25GM) 50 ML SYRINGE IV STA (09:02)
--- NOTE | 2020-10-24 09:46 | Progress Note ---
Assessment and Plan 40 y/o male with acute respiratory failure, concern for COVID positive state with pneumonia and renal failure 10/24/20: Continue current level of care. Would be mindful of pain management as patient has several meds available and appears to be using all of them. Given his respiratory state, at risk for failure if too many meds provided. Also will not clear as fast given renal failure. Dilaudid is the best choice given his renal insufficiency. Prone if able. 1. AGree with steroids 2. Prone if able 3. Follow up renal recs 4. If covid positive plus renal failure, extremely guarded prognosis. Subjective Date of service: 10/24/20 Interval history: Remains on 10 liter salter. renal function better today. Objective Vital Signs - 12hr 10/23/20 10/24/20 10/24/20 23:00 01:49 02:30 Temperature 97.2 F L 97.9 F Pulse Rate 85 69 Respiratory 41 H 24 Rate Blood Pressure 137/79 142/83 [Left] O2 Sat by Pulse 89 93 90 Oximetry 10/24/20 04:59 Temperature Pulse Rate Respiratory Rate Blood Pressure [Left] O2 Sat by Pulse 90 Oximetry CBC and BMP: 10/24/20 04:58 10/24/20 04:58 ABG, PT/INR, D-dimer: PT/INR, D-dimer D-Dimer 872.83 ng/mlDDU (0-234) H 10/22/20 14:04 Abnormal lab findings: Abnormal Labs 10/22/20 10/22/20 10/22/20 12:16 12:16 14:04 WBC 12.3 H RBC 5.12 H Hgb 15.6 H Hct 47.2 H RDW Seg Neuts % (Manual) 79.0 H Lymphocytes % (Manual) Seg Neutrophils # Man 9.7 H Lymphocytes # (Manual) D-Dimer 872.83 H Sodium 132 L Potassium Carbon Dioxide 19 L BUN 47 H Creatinine 4.2 H Glucose 123 H AST 127 H ALT 113 H Lactate Dehydrogenase C-Reactive Protein Albumin 3.6 L Urine Creatinine Urine Chloride Coronavirus (PCR) 10/22/20 10/23/20 10/23/20 14:04 07:06 07:06 WBC RBC 5.06 H Hgb 15.6 H Hct 46.0 H RDW Seg Neuts % (Manual) 86.0 H Lymphocytes % (Manual) 4.0 L Seg Neutrophils # Man 8.4 H Lymphocytes # (Manual) 0.4 L D-Dimer Sodium 133 L Potassium 5.5 H Carbon Dioxide 21 L BUN 45 H Creatinine 3.2 H Glucose 150 H AST ALT Lactate Dehydrogenase 709 H C-Reactive Protein 17.30 H Albumin Urine Creatinine Urine Chloride Coronavirus (PCR) 10/23/20 10/23/20 10/24/20 13:00 Unknown 04:58 WBC 15.7 H RBC Hgb Hct 46.9 H RDW 15.5 H Seg Neuts % (Manual) Lymphocytes % (Manual) Seg Neutrophils # Man Lymphocytes # (Manual) D-Dimer Sodium Potassium Carbon Dioxide BUN Creatinine Glucose AST ALT Lactate Dehydrogenase C-Reactive Protein Albumin Urine Creatinine 147.6 H Urine Chloride 14.1 L Coronavirus (PCR) Positive A 10/24/20 04:58 WBC RBC Hgb Hct RDW Seg Neuts % (Manual) Lymphocytes % (Manual) Seg Neutrophils # Man Lymphocytes # (Manual) D-Dimer Sodium 135 L Potassium 5.9 H Carbon Dioxide 21 L BUN 46 H Creatinine 2.3 H Glucose 147 H AST 87 H ALT 129 H Lactate Dehydrogenase C-Reactive Protein Albumin 3.5 L Urine Creatinine Urine Chloride Coronavirus (PCR)
[2020-10-24] MEDS: CHOLECALCIFEROL (VIT D3) 1000 UNIT (25 mcg) TAB PO SCH (10:40)
[2020-10-24] MEDS: ASCORBIC ACID 500 MG TAB PO SCH ×2 (10:40→22:06)
[2020-10-24] MEDS: HEPARIN 5,000 UNIT/1 ML VIAL SUB-Q SCH ×2 (10:41→22:06)
--- NOTE | 2020-10-24 11:54 | Progress Note ---
Assessment and Plan - Patient Problems (1) Acute renal failure Current Visit: Yes Status: Acute Qualifiers: Acute renal failure type: unspecified Qualified Code(s): N17.9 - Acute kidney failure, unspecified Plan to address problem: Likely pre-renal etiology He remains non oliguric at this time. renal function is showing appropriate improvement with IV fluid hydration. renal ultrasound did not show any acute abnormalities. (2) Hyperkalemia Current Visit: Yes Status: Acute Plan to address problem: Likely in the setting of KACIE. Anticipate that with adequate IVF hydration and increased distal tubule sodium delivery, we should see increase in potassium excretion. we will write for a dose of Kayexalate 60 gm today. (3) Pneumonia due to COVID-19 virus Current Visit: Yes Status: Acute Plan to address problem: Management per primary team,/ID (4) Hypoxia Current Visit: Yes Status: Acute Plan to address problem: management per pulmonary recommendations. Subjective Date of service: 10/24/20 Interval history: no acute events noted overnight. Renal function is showing slow improvement with gentle IV fluid hydration. Objective - Exam Narrative Exam: patient not directly examined in order to preserve PPE and limit spread of COVID-19. Physical examination from primary team reviewed at this time. - Vital Signs Vital signs: Vital Signs - 12hr 10/24/20 10/24/20 10/24/20 01:49 02:30 04:59 Temperature 97.9 F Pulse Rate 69 Respiratory 24 Rate Blood Pressure 142/83 [Left] O2 Sat by Pulse 93 90 90 Oximetry 10/24/20 10/24/20 09:50 10:07 Temperature 98.2 F Pulse Rate 79 Respiratory 18 Rate Blood Pressure 156/89 [Left] O2 Sat by Pulse 92 94 Oximetry - Lab 10/24/20 04:58 10/24/20 04:58 Most recent lab results Calcium 9.2 mg/dL (8.4-10.2) 10/24/20 04:58 Urine Creatinine 147.6 mg/dL (0.1-20.0) H 10/23/20 13:00 Urine Sodium 34 mmol/L 10/23/20 13:00 Medications & Allergies - Medications Allergies/Adverse Reactions: Allergies No Known Allergies Allergy (Verified 10/22/20 15:01) Active Medications: Generic Name Dose Route Start Last Admin Trade Name Freq PRN Reason Stop Dose Admin Acetaminophen 650 mg 10/22/20 14:57 10/22/20 17:21 Acetaminophen 325 Mg Tab PO 650 mg Q4H PRN Administration Pain MILD(1-3)/Fever >100.5/THOMPSON Albuterol 2.5 mg 10/22/20 14:57 Albuterol 2.5 Mg/3 Ml Nebu IH Q4HRT PRN Shortness Of Breath Ascorbic Acid 500 mg 10/22/20 22:00 10/24/20 10:40 Ascorbic Acid 500 Mg Tab PO 500 mg BID VARUN Administration Cholecalciferol 1,000 unit 10/23/20 10:00 10/24/20 10:40 Cholecalciferol (Vit D3) 1000 Unit (25 Mcg) Tab PO 1,000 unit QDAY VARUN Administration Famotidine 10 mg 10/22/20 22:00 10/23/20 21:52 Famotidine 10 Mg Tab PO 10 mg BID VARUN Administration Heparin Sodium (Porcine) 5,000 unit 10/22/20 22:00 10/24/20 10:41 Heparin 5,000 Unit/1 Ml Vial SUB-Q 5,000 unit Q12HR VARUN Administration Hydromorphone HCl 0.5 mg 10/22/20 14:57 10/23/20 23:42 Hydromorphone 1 Mg/1 Ml Inj IV 0.5 mg Q12H PRN Administration Pain , Severe (7-10) Ceftriaxone Sodium 2 gm in 100 mls @ 200 mls/hr 10/22/20 15:00 10/23/20 15:50 Rocephin/Ns 2 Gm/100 Ml IV 10/26/20 15:29 200 mls/hr Q24H VARUN Administration Protocol Azithromycin 500 mg in 250 mls @ 250 mls/hr 10/22/20 15:00 10/23/20 18:00 Zithromax/Ns IV 10/26/20 15:59 250 mls/hr Q24H VARUN Administration Protocol Sodium Chloride 1,000 mls @ 100 mls/hr 10/23/20 11:00 10/23/20 22:00 Nacl 0.9% 1000 Ml IV 100 mls/hr DIRECT VARUN Administration Methylprednisolone Sodium Succinate 40 mg 10/22/20 22:00 10/24/20 06:23 Methylprednisolone Sod Succinate 40 Mg/1 Ml Inj IV 40 mg Q8HR VARUN Administration Ondansetron HCl 4 mg 10/22/20 14:57 10/23/20 23:42 Ondansetron 4 Mg/2 Ml Inj IV 4 mg Q8H PRN Administration Nausea And Vomiting Oxycodone/Acetaminophen 1 tab 10/22/20 14:57 10/23/20 15:07 Oxycodone /Acetaminophen 5-325mg Tab PO 1 tab Q12H PRN Administration Pain, Moderate (4-6) Sodium Chloride 10 ml 10/22/20 22:00 10/23/20 21:52 Sodium Chloride 0.9% 10 Ml Flush Syringe IV 10 ml BID VARUN Administration Sodium Chloride 10 ml 10/22/20 14:57 Sodium Chloride 0.9% 10 Ml Flush Syringe IV PRN PRN LINE FLUSH Zinc Sulfate 220 mg 10/22/20 22:00 10/23/20 21:52 Zinc Sulfate 220 Mg Cap PO 220 mg BID VARUN Administration
--- NOTE | 2020-10-24 13:07 | Consultation ---
History of Present Illness - Reason for Consult Consult date: 10/24/20 - History of Present Illness 40-year-old man past medical history obesity, diagnosed with COVID-19 1 week prior to admission presented to hospital complaining of shortness this is associated with subjective fevers, anosmia, dysgeusia, fatigue. He is also lost 15 pounds over the past week. Hypoxic on admission. Afebrile, white count 15.7. Currently on ceftriaxone and azithromycin with methylprednisolone. Covid positive. Decreased renal function with EGFR 39, improving. Elevated procalcitonin in the setting of KACIE. Elevated liver enzymes. Currently requiring 10 L nasal cannula. Imaging personally reviewed: Chest x-ray: Bilateral diffuse airspace opacities. Review of systems: Deferred to reduce to the risk of transmission of COVID-19 Past History Past Medical History: other (See HPI) Past Surgical History: No surgical history, Other (Reviewed) Social history: . denies: smoking, alcohol abuse, prescription drug abuse Family history: hypertension Medications and Allergies Allergies Allergy/AdvReac Type Severity Reaction Status Date / Time No Known Allergies Allergy Verified 10/22/20 15:01 Active Meds: Active Medications Acetaminophen (Acetaminophen 325 Mg Tab) 650 mg PO Q4H PRN PRN Reason: Pain MILD(1-3)/Fever >100.5/THOMPSON Last Admin: 10/22/20 17:21 Dose: 650 mg Documented by: Albuterol (Albuterol 2.5 Mg/3 Ml Nebu) 2.5 mg IH Q4HRT PRN PRN Reason: Shortness Of Breath Ascorbic Acid (Ascorbic Acid 500 Mg Tab) 500 mg PO BID [facility] Last Admin: 10/24/20 10:40 Dose: 500 mg Documented by: Cholecalciferol (Cholecalciferol (Vit D3) 1000 Unit (25 Mcg) Tab) 1,000 unit PO QDAY [facility] Last Admin: 10/24/20 10:40 Dose: 1,000 unit Documented by: Famotidine (Famotidine 10 Mg Tab) 10 mg PO BID [facility] Last Admin: 10/23/20 21:52 Dose: 10 mg Documented by: Heparin Sodium (Porcine) (Heparin 5,000 Unit/1 Ml Vial) 5,000 unit SUB-Q Q12HR [facility] Last Admin: 10/24/20 10:41 Dose: 5,000 unit Documented by: Hydromorphone HCl (Hydromorphone 1 Mg/1 Ml Inj) 0.5 mg IV Q12H PRN PRN Reason: Pain , Severe (7-10) Last Admin: 10/23/20 23:42 Dose: 0.5 mg Documented by: Ceftriaxone Sodium (Rocephin/Ns 2 Gm/100 Ml) 2 gm in 100 mls @ 200 mls/hr IV Q24H VARUN; Protocol Stop: 10/26/20 15:29 Last Admin: 10/23/20 15:50 Dose: 200 mls/hr Documented by: Azithromycin (Zithromax/Ns) 500 mg in 250 mls @ 250 mls/hr IV Q24H VARUN; Protocol Stop: 10/26/20 15:59 Last Admin: 10/23/20 18:00 Dose: 250 mls/hr Documented by: Sodium Chloride (Nacl 0.9% 1000 Ml) 1,000 mls @ 100 mls/hr IV DIRECT VARUN Last Admin: 10/23/20 22:00 Dose: 100 mls/hr Documented by: Methylprednisolone Sodium Succinate (Methylprednisolone Sod Succinate 40 Mg/1 Ml Inj) 40 mg IV Q8HR [facility] Last Admin: 10/24/20 06:23 Dose: 40 mg Documented by: Ondansetron HCl (Ondansetron 4 Mg/2 Ml Inj) 4 mg IV Q8H PRN PRN Reason: Nausea And Vomiting Last Admin: 10/23/20 23:42 Dose: 4 mg Documented by: Oxycodone/Acetaminophen (Oxycodone /Acetaminophen 5-325mg Tab) 1 tab PO Q12H PRN PRN Reason: Pain, Moderate (4-6) Last Admin: 10/23/20 15:07 Dose: 1 tab Documented by: Sodium Chloride (Sodium Chloride 0.9% 10 Ml Flush Syringe) 10 ml IV BID [facility] Last Admin: 10/23/20 21:52 Dose: 10 ml Documented by: Sodium Chloride (Sodium Chloride 0.9% 10 Ml Flush Syringe) 10 ml IV PRN PRN PRN Reason: LINE FLUSH Zinc Sulfate (Zinc Sulfate 220 Mg Cap) 220 mg PO BID [facility] Last Admin: 10/23/20 21:52 Dose: 220 mg Documented by: Physical Examination - Physical Exam Narrative exam: Physical exam deferred to reduce risk of transmission of COVID-19. Please refer to primary team's note. - Constitutional Vitals: Vital Signs Temp Pulse Resp BP Pulse Ox 98.2 F 79 18 156/89 94 10/24/20 09:50 10/24/20 09:50 10/24/20 09:50 10/24/20 09:50 10/24/20 10:07 Temperature -Last 24 Hours Temperature 98.2 F Temperature 97.9 F Temperature 97.2 F Results - Labs CBC & Chem 7: 10/24/20 04:58 10/24/20 04:58 Labs: Abnormal lab results 10/23/20 10/23/20 10/23/20 Range/Units 07:06 13:00 Unknown WBC (4.5-11.0) K/mm3 Hct (35.5-45.6) % RDW (13.2-15.2) % Seg Neuts % (Manual) 86.0 H (40.0-70.0) % Lymphocytes % (Manual) 4.0 L (13.4-35.0) % Seg Neutrophils # Man 8.4 H (1.8-7.7) K/mm3 Lymphocytes # (Manual) 0.4 L (1.2-5.4) K/mm3 Sodium (137-145) mmol/L Potassium (3.6-5.0) mmol/L Carbon Dioxide (22-30) mmol/L BUN (9-20) mg/dL Creatinine (0.8-1.3) mg/dL Glucose (75-100) mg/dL AST (5-40) units/L ALT (7-56) units/L Albumin (3.9-5) g/dL Urine Creatinine 147.6 H (0.1-20.0) mg/dL Urine Chloride 14.1 L (110-250) mmolL Coronavirus (PCR) Positive A (Negative) 10/24/20 10/24/20 Range/Units 04:58 04:58 WBC 15.7 H (4.5-11.0) K/mm3 Hct 46.9 H (35.5-45.6) % RDW 15.5 H (13.2-15.2) % Seg Neuts % (Manual) (40.0-70.0) % Lymphocytes % (Manual) (13.4-35.0) % Seg Neutrophils # Man (1.8-7.7) K/mm3 Lymphocytes # (Manual) (1.2-5.4) K/mm3 Sodium 135 L (137-145) mmol/L Potassium 5.9 H (3.6-5.0) mmol/L Carbon Dioxide 21 L (22-30) mmol/L BUN 46 H (9-20) mg/dL Creatinine 2.3 H (0.8-1.3) mg/dL Glucose 147 H (75-100) mg/dL AST 87 H (5-40) units/L ALT 129 H (7-56) units/L Albumin 3.5 L (3.9-5) g/dL Urine Creatinine (0.1-20.0) mg/dL Urine Chloride (110-250) mmolL Coronavirus (PCR) (Negative) Assessment and Plan Cultures: Blood culture no growth so far. COVID PCR: positive A/P: 40-year-old man past medical history obesity #Severe COVID-19 pneumonia: Patient presented with a week of symptoms, chest x- ray with diffuse bilateral infiltrates, admission O2 sats on room air. Inflammatory markers elevated #Acute hypoxemic respiratory failure: Likely secondary to COVID-19 infection. Currently on 10L NC #Obesity #KACIE; improving #Elevated transaminases: likely from COVID Recs: -Steroids for 10 days -Remdesivir 200 mg IV q day x 1 followed by 100 mg IV q day x 4 days, as renal function has improved. -Obtain q48-72h inflammatory markers - ferritin, Ddimer, CRP, LDH -Continue ceftriaxone 2 gm IV qday and azithromycin 500 mg PO qday to complete 5 and 3 days respectively. -Anticoagulation per hospital protocol -Proning as able Thank you for the consult, we will continue to follow. Daja Kaye MD [facility] ([facility] O: [phone] F: [phone]
[2020-10-24] MEDS ORDERED: REMDESIVIR 200 MG in SODIUM CHLORIDE 0.9% 250ML 250 ML IV ONE (14:00)
[2020-10-24] MEDS: SODIUM CHLORIDE 0.9% 50 ML IVPB IV SCH (14:07)
[2020-10-24] MEDS: ZINC SULFATE 220 MG CAP PO SCH ×2 (14:58→22:06)
[2020-10-24] MEDS: FAMOTIDINE 10 MG TAB PO SCH ×2 (14:59→22:06)
[2020-10-24] MEDS: cefTRIAXone/NS 2 GM/100 ML 2 GM/100 ML BAG IV SCH (16:00)
[2020-10-24] MEDS: AZITHROMYCIN/NS 500 MG/250 ML 500 MG/250 ML BAG IV SCH (17:57)
--- NOTE | 2020-10-24 18:42 | Progress Note ---
Assessment and Plan Assessment and plan: 40 YO Male with Obesity Hypoventilation Syndrome, Coronavirus Infection diagnosed 1 week ago presents to ED for evaluation. Patient reports "it is hard for me to breathe". Patient states that he has experienced shortness of breath, subjective fever, loss of sense of smell, loss of sense of taste, fatigue, malaise, nausea, multiple episodes of vomiting, diminished oral intake and a subjective weight loss of 15 pounds over the past 1 week. Patient transported to [facility] via private vehicle for further care and evaluation of the aforementioned symptoms. The patient was seen and evaluated in the emergency department. All lab and imaging studies reviewed. Patient was found to have a pulse oximetry of 84% on exertion which is consistent with acute hypoxemic respiratory failure. Chest x-ray revealed bilateral pneumonia. Patient admitted to medical floor and initiated on coronavirus protocol as well as pneumonia protocol. Patient denies chills, chest pain, palpitations, skin rash. Patient knowledges suspected contact with coronavirus positive individuals. No prior admission for review. No medication listed at time of admission reconciliation. 10/23: Patient seen and examined today. We will increase him to high flow due to severe hypoxia. Have consulted pulmonary and also infectious disease. He is started on high-dose steroids. Likely not a candidate for remdesivir due to renal dysfunction. I have encouraged him to prone also discussed with his . Unfortunately he is unvaccinated. His also was affected but he states that hers was mild. Wean oxygen as tolerated. Will defer Actemra to infectious disease team. Renal function showing some slight improvement will give a dose of Kayexalate for the hyperkalemia. Chest x-ray shows bilateral diffuse opacities 10/24 Patient with Covid-19 pneumonia with acute respiratory failure. On Oxygen at 10 l/min. On Remdesivir. KACIE improving. Hyperkalemia worse, Potassium 5.9 today. Kayexalate, Insulin ordered. (1) Acute hypoxemic respiratory failure Current Visit: Yes Status: Acute Plan to address problem: Chest x-ray, supplemental oxygen, pulse oximetry, nebulizer therapy, pulmonary toilet (2) Pneumonia Current Visit: Yes Status: Acute Plan to address problem: Pneumonia protocol: Chest x-ray, CBC, CMP, supplemental oxygen, pulse oximetry, nebulizer therapy, blood culture. (3) Obesity hypoventilation syndrome Current Visit: Yes Status: Acute Plan to address problem: Balanced diet, increase physical activity at discharge, outpatient pulmonary follow-up for sleep study, (4) COVID-19 virus infection Current Visit: Yes Status: Acute Plan to address problem: Coronavirus protocol: IV antibiotic therapy, IV steroid therapy, supplemental oxygen, pulse oximetry, vitamin C therapy, vitamin D therapy, zinc therapy, prone positioning while in bed, prophylactic anticoagulation. (5) Acute kidney injury with vasomotor nephropathy (6) Hyperkalemia (7) DVT prophylaxis Current Visit: Yes Status: Acute Plan to address problem: SCDs bilateral lower extremities while in bed, prophylactic anticoagulation. History Interval history: shortness of breath Hospitalist Physical - Physical exam Narrative exam: Gen:Not in acute distress, lying in bed HEENT:Normocephalic, atraumatic Neck:supple, no JVD Lungs: Bilateral crackles, no wheeze Heart:S1 and S2 reg, no murmurs, rubs or gallop Abd:Soft, non tender, non distended, normal bowel sounds Ext:No edema. no clubbing, no cyanosis Neuro:Awake, alert, oriented X 3, moves all ext - Constitutional Vitals: Temp Pulse Resp BP Pulse Ox 98.1 F 78 20 146/93 93 10/24/20 16:49 10/24/20 16:50 10/24/20 16:49 10/24/20 16:49 10/24/20 16:50 General appearance: Present: obese Results - Labs CBC & Chem 7: 10/24/20 04:58 10/24/20 04:58 Labs: Laboratory Last Values WBC 15.7 K/mm3 (4.5-11.0) H 10/24/20 04:58 RBC 5.00 M/mm3 (3.65-5.03) 10/24/20 04:58 Hgb 15.1 gm/dl (11.8-15.2) 10/24/20 04:58 Hct 46.9 % (35.5-45.6) H 10/24/20 04:58 MCV 94 fl (84-94) 10/24/20 04:58 MCH 30 pg (28-32) 10/24/20 04:58 MCHC 32 % (32-34) 10/24/20 04:58 RDW 15.5 % (13.2-15.2) H 10/24/20 04:58 Plt Count 393 K/mm3 (140-440) 10/24/20 04:58 Add Manual Diff Complete 10/23/20 07:06 Total Counted 100 10/23/20 07:06 Seg Neuts % (Manual) 86.0 % (40.0-70.0) H 10/23/20 07:06 Band Neutrophils % 2.0 % 10/23/20 07:06 Lymphocytes % (Manual) 4.0 % (13.4-35.0) L 10/23/20 07:06 Reactive Lymphs % (Man) 1.0 % 10/22/20 12:16 Monocytes % (Manual) 5.0 % (0.0-7.3) 10/23/20 07:06 Metamyelocytes % 1.0 % 10/23/20 07:06 Myelocytes % 2.0 % 10/23/20 07:06 Promyelocytes % 3.0 % 10/22/20 12:16 Nucleated RBC % Not Reportable 10/23/20 07:06 Seg Neutrophils # Man 8.4 K/mm3 (1.8-7.7) H 10/23/20 07:06 Band Neutrophils # 0.2 K/mm3 10/23/20 07:06 Lymphocytes # (Manual) 0.4 K/mm3 (1.2-5.4) L 10/23/20 07:06 Abs React Lymphs (Man) 0.0 K/mm3 10/23/20 07:06 Monocytes # (Manual) 0.5 K/mm3 (0.0-0.8) 10/23/20 07:06 Eosinophils # (Manual) 0.0 K/mm3 (0.0-0.4) 10/23/20 07:06 Basophils # (Manual) 0.0 K/mm3 (0.0-0.1) 10/23/20 07:06 Metamyelocytes # 0.1 K/mm3 10/23/20 07:06 Myelocytes # 0.2 K/mm3 10/23/20 07:06 Promyelocytes # 0.0 K/mm3 10/23/20 07:06 Blast Cells # 0.0 K/mm3 10/23/20 07:06 WBC Morphology Not Reportable 10/23/20 07:06 Hypersegmented Neuts Not Reportable 10/23/20 07:06 Hyposegmented Neuts Not Reportable 10/23/20 07:06 Hypogranular Neuts Not Reportable 10/23/20 07:06 Smudge Cells Not Reportable 10/23/20 07:06 Toxic Granulation Not Reportable 10/23/20 07:06 Toxic Vacuolation Not Reportable 10/23/20 07:06 Dohle Bodies Not Reportable 10/23/20 07:06 Pelger-Huet Anomaly Not Reportable 10/23/20 07:06 Fariba Rods Not Reportable 10/23/20 07:06 Platelet Estimate Consistent w auto 10/23/20 07:06 Clumped Platelets Not Reportable 10/23/20 07:06 Plt Clumps, EDTA Not Reportable 10/23/20 07:06 Large Platelets Not Reportable 10/23/20 07:06 Giant Platelets Not Reportable 10/23/20 07:06 Platelet Satelliting Not Reportable 10/23/20 07:06 Plt Morphology Comment Not Reportable 10/23/20 07:06 RBC Morphology Normal 10/23/20 07:06 Dimorphic RBCs Not Reportable 10/23/20 07:06 Polychromasia Not Reportable 10/23/20 07:06 Hypochromasia Not Reportable 10/23/20 07:06 Poikilocytosis Not Reportable 10/23/20 07:06 Anisocytosis Not Reportable 10/23/20 07:06 Microcytosis Not Reportable 10/23/20 07:06 Macrocytosis Not Reportable 10/23/20 07:06 Spherocytes Not Reportable 10/23/20 07:06 Pappenheimer Bodies Not Reportable 10/23/20 07:06 Sickle Cells Not Reportable 10/23/20 07:06 Target Cells Not Reportable 10/23/20 07:06 Tear Drop Cells Not Reportable 10/23/20 07:06 Ovalocytes Not Reportable 10/23/20 07:06 Helmet Cells Not Reportable 10/23/20 07:06 Perez-Frannie Bodies Not Reportable 10/23/20 07:06 [place] Rings Not Reportable 10/23/20 07:06 Maggie Cells Not Reportable 10/23/20 07:06 Bite Cells Not Reportable 10/23/20 07:06 Crenated Cell Not Reportable 10/23/20 07:06 Elliptocytes Not Reportable 10/23/20 07:06 Acanthocytes (Spur) Not Reportable 10/23/20 07:06 Rouleaux Not Reportable 10/23/20 07:06 Hemoglobin C Crystals Not Reportable 10/23/20 07:06 Schistocytes Not Reportable 10/23/20 07:06 Malaria parasites Not Reportable 10/23/20 07:06 Calvin Bodies Not Reportable 10/23/20 07:06 Hem Pathologist Commnt No 10/23/20 07:06 D-Dimer 872.83 ng/mlDDU (0-234) H 10/22/20 14:04 Sodium 135 mmol/L (137-145) L 10/24/20 04:58 Potassium 5.9 mmol/L (3.6-5.0) H 10/24/20 04:58 Chloride 101.9 mmol/L (98-107) 10/24/20 04:58 Carbon Dioxide 21 mmol/L (22-30) L 10/24/20 04:58 Anion Gap 18 mmol/L 10/24/20 04:58 BUN 46 mg/dL (9-20) H 10/24/20 04:58 Creatinine 2.3 mg/dL (0.8-1.3) H 10/24/20 04:58 Estimated GFR 39 ml/min 10/24/20 04:58 BUN/Creatinine Ratio 20 % 10/24/20 04:58 Glucose 147 mg/dL (75-100) H 10/24/20 04:58 Calcium 9.2 mg/dL (8.4-10.2) 10/24/20 04:58 Total Bilirubin 0.30 mg/dL (0.1-1.2) 10/24/20 04:58 AST 87 units/L (5-40) H 10/24/20 04:58 ALT 129 units/L (7-56) H 10/24/20 04:58 Alkaline Phosphatase 61 units/L (35-129) 10/24/20 04:58 Lactate Dehydrogenase 709 units/L (91-180) H 10/22/20 14:04 C-Reactive Protein 17.30 mg/dL (0.00-1.30) H 10/22/20 14:04 NT-Pro-B Natriuret Pep 83.97 pg/mL (0-450) 10/22/20 14:04 Total Protein 6.9 g/dL (6.3-8.2) 10/24/20 04:58 Albumin 3.5 g/dL (3.9-5) L 10/24/20 04:58 Albumin/Globulin Ratio 1.0 % 10/24/20 04:58 Procalcitonin 0.50 ng/mL (<0.15) 10/22/20 14:04 Urine Color Yellow (Yellow) 10/23/20 13:00 Urine Turbidity Clear (Clear) 10/23/20 13:00 Urine pH 6.0 (5.0-7.0) 10/23/20 13:00 Ur Specific [place] 1.015 (1.003-1.030) 10/23/20 13:00 Urine Protein 30 mg/dl mg/dL (Negative) 10/23/20 13:00 Urine Glucose (UA) Neg mg/dL (Negative) 10/23/20 13:00 Urine Ketones Neg mg/dL (Negative) 10/23/20 13:00 Urine Blood Mod (Negative) 10/23/20 13:00 Urine Nitrite Neg (Negative) 10/23/20 13:00 Urine Bilirubin Neg (Negative) 10/23/20 13:00 Urine Urobilinogen 2.0 mg/dL (<2.0) 10/23/20 13:00 Ur Leukocyte Esterase Neg (Negative) 10/23/20 13:00 Urine WBC (Auto) 4.0 /HPF (0.0-6.0) 10/23/20 13:00 Urine RBC (Auto) 2.0 /HPF (0.0-6.0) 10/23/20 13:00 Urine Mucus Few /HPF 10/23/20 13:00 Urine Creatinine 147.6 mg/dL (0.1-20.0) H 10/23/20 13:00 Urine Sodium 34 mmol/L 10/23/20 13:00 Urine Chloride 14.1 mmolL (110-250) L 10/23/20 13:00 Coronavirus (PCR) Positive (Negative) A 10/23/20 Unknown Gregorio/IV: Voiding Method Urinal Active Medications - Current Medications Current Medications: Generic Name Dose Route Start Last Admin Trade Name Freq PRN Reason Stop Dose Admin Acetaminophen 650 mg 10/22/20 14:57 10/22/20 17:21 Acetaminophen 325 Mg Tab PO 650 mg Q4H PRN Administration Pain MILD(1-3)/Fever >100.5/THOMPSON Albuterol 2.5 mg 10/22/20 14:57 Albuterol 2.5 Mg/3 Ml Nebu IH Q4HRT PRN Shortness Of Breath Ascorbic Acid 500 mg 10/22/20 22:00 10/24/20 10:40 Ascorbic Acid 500 Mg Tab PO 500 mg BID VARUN Administration Cholecalciferol 1,000 unit 10/23/20 10:00 10/24/20 10:40 Cholecalciferol (Vit D3) 1000 Unit (25 Mcg) Tab PO 1,000 unit QDAY VARUN Administration Famotidine 10 mg 10/22/20 22:00 10/24/20 14:59 Famotidine 10 Mg Tab PO 10 mg BID VARUN Administration Heparin Sodium (Porcine) 5,000 unit 10/22/20 22:00 10/24/20 10:41 Heparin 5,000 Unit/1 Ml Vial SUB-Q 5,000 unit Q12HR VARUN Administration Hydromorphone HCl 0.5 mg 10/22/20 14:57 10/23/20 23:42 Hydromorphone 1 Mg/1 Ml Inj IV 0.5 mg Q12H PRN Administration Pain , Severe (7-10) Ceftriaxone Sodium 2 gm in 100 mls @ 200 mls/hr 10/22/20 15:00 10/24/20 16:00 Rocephin/Ns 2 Gm/100 Ml IV 10/26/20 15:29 200 mls/hr Q24H VARUN Administration Protocol Azithromycin 500 mg in 250 mls @ 250 mls/hr 10/22/20 15:00 10/24/20 17:57 Zithromax/Ns IV 10/26/20 15:59 250 mls/hr Q24H VARUN Administration Protocol Sodium Chloride 1,000 mls @ 100 mls/hr 10/23/20 11:00 10/23/20 22:00 Nacl 0.9% 1000 Ml IV 100 mls/hr DIRECT VARUN Administration REMDESIVIR 100 mg/ Sodium 250 mls @ 500 mls/hr 10/25/20 21:00 Chloride IV 10/28/20 21:29 Q24HR@2100 VARUN Methylprednisolone Sodium Succinate 40 mg 10/22/20 22:00 10/24/20 14:58 Methylprednisolone Sod Succinate 40 Mg/1 Ml Inj IV 40 mg Q8HR VARUN Administration Ondansetron HCl 4 mg 10/22/20 14:57 10/23/20 23:42 Ondansetron 4 Mg/2 Ml Inj IV 4 mg Q8H PRN Administration Nausea And Vomiting Oxycodone/Acetaminophen 1 tab 10/22/20 14:57 10/23/20 15:07 Oxycodone /Acetaminophen 5-325mg Tab PO 1 tab Q12H PRN Administration Pain, Moderate (4-6) Sodium Chloride 10 ml 10/22/20 22:00 10/24/20 14:59 Sodium Chloride 0.9% 10 Ml Flush Syringe IV 10 ml BID VARUN Administration Sodium Chloride 10 ml 10/22/20 14:57 Sodium Chloride 0.9% 10 Ml Flush Syringe IV PRN PRN LINE FLUSH Sodium Chloride 50 ml 10/24/20 14:00 Sodium Chloride 0.9% 50 Ml Ivpb IV 10/27/20 21:01 Q24HR@2100 VARUN Zinc Sulfate 220 mg 10/22/20 22:00 10/24/20 14:58 Zinc Sulfate 220 Mg Cap PO 220 mg BID VARUN Administration
[2020-10-24] MEDS: oxyCODONE /ACETAMINOPHEN 5-325MG TAB PO PRN (19:57)
[2020-10-25] MEDS: SODIUM CHLORIDE 0.9% 50 ML IVPB IV SCH ×2 (01:05→21:09)
[2020-10-25] MEDS: HYDROmorphone 1 MG/1 ML INJ IV PRN (01:14)
[2020-10-25] MEDS: methylPREDNISolone Sod Succinate 40 MG/1 ML INJ IV SCH ×3 (07:16→21:09)
[2020-10-25 08:58] LABS: Hematocrit 46.1 % (35.5-45.6); Hemoglobin 14.9 gm/dl (11.8-15.2); Mean Corpuscular HGB Conc 32 % (32-34); Mean Corpuscular Volume 91 fl (84-94); Platelet Count 431 K/mm3 (140-440); Red Blood Count 5.08 M/mm3 (3.65-5.03); Red Cell Distribution Width 15.2 % (13.2-15.2)
[2020-10-25 09:11] LABS: Albumin 3.2 g/dL (3.9-5); Calcium 9.4 mg/dL (8.4-10.2)
--- NOTE | 2020-10-25 09:23 | Progress Note ---
Assessment and Plan - Patient Problems (1) Acute renal failure Current Visit: Yes Status: Acute Qualifiers: Acute renal failure type: unspecified Qualified Code(s): N17.9 - Acute kidney failure, unspecified Plan to address problem: Likely pre-renal etiology He remains non oliguric at this time. renal function is showing appropriate improvement with IV fluid hydration. renal ultrasound did not show any acute abnormalities. (2) Hyperkalemia Current Visit: Yes Status: Acute Plan to address problem: Likely in the setting of KACIE. Anticipate that with adequate IVF hydration and increased distal tubule sodium delivery, we should see increase in potassium excretion. Responded well to kayexulate that was ordered yesterday. (3) Pneumonia due to COVID-19 virus Current Visit: Yes Status: Acute Plan to address problem: Management per primary team,/ID (4) Hypoxia Current Visit: Yes Status: Acute Plan to address problem: management per pulmonary recommendations. Subjective Date of service: 10/25/20 Interval history: Events overnight reviewed. Renal function continues to show improvement. Objective - Exam Narrative Exam: patient not directly examined in order to preserve PPE and limit spread of COVID-19. Physical examination from primary team reviewed at this time. - Vital Signs Vital signs: Vital Signs - 12hr 10/24/20 10/25/20 22:48 01:00 Pulse Rate [ 93 H Brachial] Respiratory 20 Rate O2 Sat by Pulse 94 93 Oximetry - Lab 10/25/20 08:21 10/25/20 08:21 Most recent lab results Calcium 9.4 mg/dL (8.4-10.2) 10/25/20 08:21 Urine Creatinine 147.6 mg/dL (0.1-20.0) H 10/23/20 13:00 Urine Sodium 34 mmol/L 10/23/20 13:00 Medications & Allergies - Medications Allergies/Adverse Reactions: Allergies No Known Allergies Allergy (Verified 10/22/20 15:01) Home Medications: Home Medications Medication Instructions Recorded Confirmed Last Taken Type No Known Home Medications [No 10/25/20 10/25/20 Unknown History Reported Home Medications] Active Medications: Generic Name Dose Route Start Last Admin Trade Name Freq PRN Reason Stop Dose Admin Acetaminophen 650 mg 10/22/20 14:57 10/22/20 17:21 Acetaminophen 325 Mg Tab PO 650 mg Q4H PRN Administration Pain MILD(1-3)/Fever >100.5/THOMPSON Albuterol 2.5 mg 10/22/20 14:57 Albuterol 2.5 Mg/3 Ml Nebu IH Q4HRT PRN Shortness Of Breath Ascorbic Acid 500 mg 10/22/20 22:00 10/24/20 22:06 Ascorbic Acid 500 Mg Tab PO 500 mg BID VARUN Administration Cholecalciferol 1,000 unit 10/23/20 10:00 10/24/20 10:40 Cholecalciferol (Vit D3) 1000 Unit (25 Mcg) Tab PO 1,000 unit QDAY VARUN Administration Famotidine 10 mg 10/22/20 22:00 10/24/20 22:06 Famotidine 10 Mg Tab PO 10 mg BID VARUN Administration Heparin Sodium (Porcine) 5,000 unit 10/22/20 22:00 10/24/20 22:06 Heparin 5,000 Unit/1 Ml Vial SUB-Q 5,000 unit Q12HR VARUN Administration Hydromorphone HCl 0.5 mg 10/22/20 14:57 10/25/20 01:14 Hydromorphone 1 Mg/1 Ml Inj IV 0.5 mg Q12H PRN Administration Pain , Severe (7-10) Ceftriaxone Sodium 2 gm in 100 mls @ 200 mls/hr 10/22/20 15:00 10/24/20 16:00 Rocephin/Ns 2 Gm/100 Ml IV 10/26/20 15:29 200 mls/hr Q24H VARUN Administration Protocol Sodium Chloride 1,000 mls @ 100 mls/hr 10/23/20 11:00 10/23/20 22:00 Nacl 0.9% 1000 Ml IV 100 mls/hr DIRECT VARUN Administration REMDESIVIR 100 mg/ Sodium 250 mls @ 500 mls/hr 10/25/20 21:00 Chloride IV 10/28/20 21:29 Q24HR@2100 VARUN Methylprednisolone Sodium Succinate 40 mg 10/22/20 22:00 10/25/20 07:16 Methylprednisolone Sod Succinate 40 Mg/1 Ml Inj IV 40 mg Q8HR VARUN Administration Ondansetron HCl 4 mg 10/22/20 14:57 10/23/20 23:42 Ondansetron 4 Mg/2 Ml Inj IV 4 mg Q8H PRN Administration Nausea And Vomiting Oxycodone/Acetaminophen 1 tab 10/22/20 14:57 10/24/20 19:57 Oxycodone /Acetaminophen 5-325mg Tab PO 1 tab Q12H PRN Administration Pain, Moderate (4-6) Sodium Chloride 10 ml 10/22/20 22:00 10/24/20 22:06 Sodium Chloride 0.9% 10 Ml Flush Syringe IV 10 ml BID VARUN Administration Sodium Chloride 10 ml 10/22/20 14:57 Sodium Chloride 0.9% 10 Ml Flush Syringe IV PRN PRN LINE FLUSH Sodium Chloride 50 ml 10/24/20 14:00 10/25/20 01:05 Sodium Chloride 0.9% 50 Ml Ivpb IV 10/27/20 21:01 Not Given Q24HR@2100 VARUN Zinc Sulfate 220 mg 10/22/20 22:00 10/24/20 22:06 Zinc Sulfate 220 Mg Cap PO 220 mg BID VARUN Administration
--- NOTE | 2020-10-25 09:26 | Progress Note ---
Assessment and Plan Assessment and plan: 40 YO Male with Obesity Hypoventilation Syndrome, Coronavirus Infection diagnosed 1 week ago presents to ED for evaluation. Patient reports "it is hard for me to breathe". Patient states that he has experienced shortness of breath, subjective fever, loss of sense of smell, loss of sense of taste, fatigue, malaise, nausea, multiple episodes of vomiting, diminished oral intake and a subjective weight loss of 15 pounds over the past 1 week. Patient transported to [facility] via private vehicle for further care and evaluation of the aforementioned symptoms. The patient was seen and evaluated in the emergency department. All lab and imaging studies reviewed. Patient was found to have a pulse oximetry of 84% on exertion which is consistent with acute hypoxemic respiratory failure. Chest x-ray revealed bilateral pneumonia. Patient admitted to medical floor and initiated on coronavirus protocol as well as pneumonia protocol. Patient denies chills, chest pain, palpitations, skin rash. Patient knowledges suspected contact with coronavirus positive individuals. No prior admission for review. No medication listed at time of admission reconciliation. 10/23: Patient seen and examined today. We will increase him to high flow due to severe hypoxia. Have consulted pulmonary and also infectious disease. He is started on high-dose steroids. Likely not a candidate for remdesivir due to renal dysfunction. I have encouraged him to prone also discussed with his . Unfortunately he is unvaccinated. His also was affected but he states that hers was mild. Wean oxygen as tolerated. Will defer Actemra to infectious disease team. Renal function showing some slight improvement will give a dose of Kayexalate for the hyperkalemia. Chest x-ray shows bilateral diffuse opacities 10/24 Patient with Covid-19 pneumonia with acute respiratory failure. On Oxygen at 10 l/min. On Remdesivir. KACIE improving. Hyperkalemia worse, Potassium 5.9 today. Kayexalate, Insulin ordered. 10/25/20 Patient with Covid-19 pneumonia with acute respiratory failure. Now on Oxygen at 9 l/min NC. KACIE improving Cr 1.8 today. Hyperkalemia resolved. Cr 4.9 (1) Acute hypoxemic respiratory failure Current Visit: Yes Status: Acute Plan to address problem: Chest x-ray, supplemental oxygen, pulse oximetry, nebulizer therapy, pulmonary toilet (2) Pneumonia Current Visit: Yes Status: Acute Plan to address problem: Pneumonia protocol: Chest x-ray, CBC, CMP, supplemental oxygen, pulse oximetry, nebulizer therapy, blood culture. (3) Obesity hypoventilation syndrome Current Visit: Yes Status: Acute Plan to address problem: Balanced diet, increase physical activity at discharge, outpatient pulmonary follow-up for sleep study, (4) COVID-19 virus infection Current Visit: Yes Status: Acute Plan to address problem: Coronavirus protocol: IV antibiotic therapy, IV steroid therapy, supplemental oxygen, pulse oximetry, vitamin C therapy, vitamin D therapy, zinc therapy, prone positioning while in bed, prophylactic anticoagulation. (5) Acute kidney injury with vasomotor nephropathy (6) Hyperkalemia (7) DVT prophylaxis Current Visit: Yes Status: Acute Plan to address problem: SCDs bilateral lower extremities while in bed, prophylactic anticoagulation. History Interval history: shortness of breath Hospitalist Physical - Physical exam Narrative exam: Gen:Not in acute distress, lying in bed,obese HEENT:Normocephalic, atraumatic Neck:supple, no JVD Lungs: Bilateral crackles, no wheeze Heart:S1 and S2 reg, no murmurs, rubs or gallop Abd:Soft, non tender, non distended, normal bowel sounds Ext:No edema. no clubbing, no cyanosis Neuro:Awake, alert, oriented X 3, moves all ext - Constitutional Vitals: Temp Pulse Resp BP Pulse Ox 98.1 F 93 H 20 146/93 93 10/24/20 16:49 10/25/20 01:00 10/25/20 01:00 10/24/20 16:49 10/25/20 01:00 General appearance: Present: obese Results - Labs CBC & Chem 7: 10/25/20 08:21 10/25/20 08:21 Labs: Laboratory Last Values WBC 17.4 K/mm3 (4.5-11.0) H 10/25/20 08:21 RBC 5.08 M/mm3 (3.65-5.03) H 10/25/20 08:21 Hgb 14.9 gm/dl (11.8-15.2) 10/25/20 08:21 Hct 46.1 % (35.5-45.6) H 10/25/20 08:21 MCV 91 fl (84-94) 10/25/20 08:21 MCH 29 pg (28-32) 10/25/20 08:21 MCHC 32 % (32-34) 10/25/20 08:21 RDW 15.2 % (13.2-15.2) 10/25/20 08:21 Plt Count 431 K/mm3 (140-440) 10/25/20 08:21 Add Manual Diff Complete 10/23/20 07:06 Total Counted 100 10/23/20 07:06 Seg Neuts % (Manual) 86.0 % (40.0-70.0) H 10/23/20 07:06 Band Neutrophils % 2.0 % 10/23/20 07:06 Lymphocytes % (Manual) 4.0 % (13.4-35.0) L 10/23/20 07:06 Reactive Lymphs % (Man) 1.0 % 10/22/20 12:16 Monocytes % (Manual) 5.0 % (0.0-7.3) 10/23/20 07:06 Metamyelocytes % 1.0 % 10/23/20 07:06 Myelocytes % 2.0 % 10/23/20 07:06 Promyelocytes % 3.0 % 10/22/20 12:16 Nucleated RBC % Not Reportable 10/23/20 07:06 Seg Neutrophils # Man 8.4 K/mm3 (1.8-7.7) H 10/23/20 07:06 Band Neutrophils # 0.2 K/mm3 10/23/20 07:06 Lymphocytes # (Manual) 0.4 K/mm3 (1.2-5.4) L 10/23/20 07:06 Abs React Lymphs (Man) 0.0 K/mm3 10/23/20 07:06 Monocytes # (Manual) 0.5 K/mm3 (0.0-0.8) 10/23/20 07:06 Eosinophils # (Manual) 0.0 K/mm3 (0.0-0.4) 10/23/20 07:06 Basophils # (Manual) 0.0 K/mm3 (0.0-0.1) 10/23/20 07:06 Metamyelocytes # 0.1 K/mm3 10/23/20 07:06 Myelocytes # 0.2 K/mm3 10/23/20 07:06 Promyelocytes # 0.0 K/mm3 10/23/20 07:06 Blast Cells # 0.0 K/mm3 10/23/20 07:06 WBC Morphology Not Reportable 10/23/20 07:06 Hypersegmented Neuts Not Reportable 10/23/20 07:06 Hyposegmented Neuts Not Reportable 10/23/20 07:06 Hypogranular Neuts Not Reportable 10/23/20 07:06 Smudge Cells Not Reportable 10/23/20 07:06 Toxic Granulation Not Reportable 10/23/20 07:06 Toxic Vacuolation Not Reportable 10/23/20 07:06 Dohle Bodies Not Reportable 10/23/20 07:06 Pelger-Huet Anomaly Not Reportable 10/23/20 07:06 Fariba Rods Not Reportable 10/23/20 07:06 Platelet Estimate Consistent w auto 10/23/20 07:06 Clumped Platelets Not Reportable 10/23/20 07:06 Plt Clumps, EDTA Not Reportable 10/23/20 07:06 Large Platelets Not Reportable 10/23/20 07:06 Giant Platelets Not Reportable 10/23/20 07:06 Platelet Satelliting Not Reportable 10/23/20 07:06 Plt Morphology Comment Not Reportable 10/23/20 07:06 RBC Morphology Normal 10/23/20 07:06 Dimorphic RBCs Not Reportable 10/23/20 07:06 Polychromasia Not Reportable 10/23/20 07:06 Hypochromasia Not Reportable 10/23/20 07:06 Poikilocytosis Not Reportable 10/23/20 07:06 Anisocytosis Not Reportable 10/23/20 07:06 Microcytosis Not Reportable 10/23/20 07:06 Macrocytosis Not Reportable 10/23/20 07:06 Spherocytes Not Reportable 10/23/20 07:06 Pappenheimer Bodies Not Reportable 10/23/20 07:06 Sickle Cells Not Reportable 10/23/20 07:06 Target Cells Not Reportable 10/23/20 07:06 Tear Drop Cells Not Reportable 10/23/20 07:06 Ovalocytes Not Reportable 10/23/20 07:06 Helmet Cells Not Reportable 10/23/20 07:06 [place] Bodies Not Reportable 10/23/20 07:06 [place] Rings Not Reportable 10/23/20 07:06 Maggie Cells Not Reportable 10/23/20 07:06 Bite Cells Not Reportable 10/23/20 07:06 Crenated Cell Not Reportable 10/23/20 07:06 Elliptocytes Not Reportable 10/23/20 07:06 Acanthocytes (Spur) Not Reportable 10/23/20 07:06 Rouleaux Not Reportable 10/23/20 07:06 Hemoglobin C Crystals Not Reportable 10/23/20 07:06 Schistocytes Not Reportable 10/23/20 07:06 Malaria parasites Not Reportable 10/23/20 07:06 Calvin Bodies Not Reportable 10/23/20 07:06 Hem Pathologist Commnt No 10/23/20 07:06 D-Dimer 872.83 ng/mlDDU (0-234) H 10/22/20 14:04 Sodium 141 mmol/L (137-145) 10/25/20 08:21 Potassium 4.9 mmol/L (3.6-5.0) 10/25/20 08:21 Chloride 107.0 mmol/L (98-107) 10/25/20 08:21 Carbon Dioxide 25 mmol/L (22-30) 10/25/20 08:21 Anion Gap 14 mmol/L 10/25/20 08:21 BUN 38 mg/dL (9-20) H 10/25/20 08:21 Creatinine 1.8 mg/dL (0.8-1.3) H 10/25/20 08:21 Estimated GFR 51 ml/min 10/25/20 08:21 BUN/Creatinine Ratio 21 % 10/25/20 08:21 Glucose 119 mg/dL (75-100) H 10/25/20 08:21 Calcium 9.4 mg/dL (8.4-10.2) 10/25/20 08:21 Total Bilirubin 0.40 mg/dL (0.1-1.2) 10/25/20 08:21 AST 51 units/L (5-40) H 10/25/20 08:21 ALT 105 units/L (7-56) H 10/25/20 08:21 Alkaline Phosphatase 60 units/L (35-129) 10/25/20 08:21 Lactate Dehydrogenase 709 units/L (91-180) H 10/22/20 14:04 C-Reactive Protein 17.30 mg/dL (0.00-1.30) H 10/22/20 14:04 NT-Pro-B Natriuret Pep 83.97 pg/mL (0-450) 10/22/20 14:04 Total Protein 7.1 g/dL (6.3-8.2) 10/25/20 08:21 Albumin 3.2 g/dL (3.9-5) L 10/25/20 08: Albumin/Globulin Ratio 0.8 % 10/25/20 08:21 Procalcitonin 0.50 ng/mL (<0.15) 10/22/20 14:04 Urine Color Yellow (Yellow) 10/23/20 13:00 Urine Turbidity Clear (Clear) 10/23/20 13:00 Urine pH 6.0 (5.0-7.0) 10/23/20 13:00 Ur Specific [place] 1.015 (1.003-1.030) 10/23/20 13:00 Urine Protein 30 mg/dl mg/dL (Negative) 10/23/20 13:00 Urine Glucose (UA) Neg mg/dL (Negative) 10/23/20 13:00 Urine Ketones Neg mg/dL (Negative) 10/23/20 13:00 Urine Blood Mod (Negative) 10/23/20 13:00 Urine Nitrite Neg (Negative) 10/23/20 13:00 Urine Bilirubin Neg (Negative) 10/23/20 13:00 Urine Urobilinogen 2.0 mg/dL (<2.0) 10/23/20 13:00 Ur Leukocyte Esterase Neg (Negative) 10/23/20 13:00 Urine WBC (Auto) 4.0 /HPF (0.0-6.0) 10/23/20 13:00 Urine RBC (Auto) 2.0 /HPF (0.0-6.0) 10/23/20 13:00 Urine Mucus Few /HPF 10/23/20 13:00 Urine Creatinine 147.6 mg/dL (0.1-20.0) H 10/23/20 13:00 Urine Sodium 34 mmol/L 10/23/20 13:00 Urine Chloride 14.1 mmolL (110-250) L 10/23/20 13:00 Coronavirus (PCR) Positive (Negative) A 10/23/20 Unknown Gregorio/IV: Voiding Method Urinal Active Medications - Current Medications Current Medications: Generic Name Dose Route Start Last Admin Trade Name Freq PRN Reason Stop Dose Admin Acetaminophen 650 mg 10/22/20 14:57 10/22/20 17:21 Acetaminophen 325 Mg Tab PO 650 mg Q4H PRN Administration Pain MILD(1-3)/Fever >100.5/THOMPSON Albuterol 2.5 mg 10/22/20 14:57 Albuterol 2.5 Mg/3 Ml Nebu IH Q4HRT PRN Shortness Of Breath Ascorbic Acid 500 mg 10/22/20 22:00 10/24/20 22:06 Ascorbic Acid 500 Mg Tab PO 500 mg BID VARUN Administration Cholecalciferol 1,000 unit 10/23/20 10:00 10/24/20 10:40 Cholecalciferol (Vit D3) 1000 Unit (25 Mcg) Tab PO 1,000 unit QDAY VARUN Administration Famotidine 10 mg 10/22/20 22:00 10/24/20 22:06 Famotidine 10 Mg Tab PO 10 mg BID VARUN Administration Heparin Sodium (Porcine) 5,000 unit 10/22/20 22:00 10/24/20 22:06 Heparin 5,000 Unit/1 Ml Vial SUB-Q 5,000 unit Q12HR VARUN Administration Hydromorphone HCl 0.5 mg 10/22/20 14:57 10/25/20 01:14 Hydromorphone 1 Mg/1 Ml Inj IV 0.5 mg Q12H PRN Administration Pain , Severe (7-10) Ceftriaxone Sodium 2 gm in 100 mls @ 200 mls/hr 10/22/20 15:00 10/24/20 16:00 Rocephin/Ns 2 Gm/100 Ml IV 10/26/20 15:29 200 mls/hr Q24H VARUN Administration Protocol Sodium Chloride 1,000 mls @ 100 mls/hr 10/23/20 11:00 10/23/20 22:00 Nacl 0.9% 1000 Ml IV 100 mls/hr DIRECT VARUN Administration REMDESIVIR 100 mg/ Sodium 250 mls @ 500 mls/hr 10/25/20 21:00 Chloride IV 10/28/20 21:29 Q24HR@2100 VARUN Methylprednisolone Sodium Succinate 40 mg 10/22/20 22:00 10/25/20 07:16 Methylprednisolone Sod Succinate 40 Mg/1 Ml Inj IV 40 mg Q8HR VARUN Administration Ondansetron HCl 4 mg 10/22/20 14:57 10/23/20 23:42 Ondansetron 4 Mg/2 Ml Inj IV 4 mg Q8H PRN Administration Nausea And Vomiting Oxycodone/Acetaminophen 1 tab 10/22/20 14:57 10/24/20 19:57 Oxycodone /Acetaminophen 5-325mg Tab PO 1 tab Q12H PRN Administration Pain, Moderate (4-6) Sodium Chloride 10 ml 10/22/20 22:00 10/24/20 22:06 Sodium Chloride 0.9% 10 Ml Flush Syringe IV 10 ml BID VARUN Administration Sodium Chloride 10 ml 10/22/20 14:57 Sodium Chloride 0.9% 10 Ml Flush Syringe IV PRN PRN LINE FLUSH Sodium Chloride 50 ml 10/24/20 14:00 10/25/20 01:05 Sodium Chloride 0.9% 50 Ml Ivpb IV 10/27/20 21:01 Not Given Q24HR@2100 VARUN Zinc Sulfate 220 mg 10/22/20 22:00 10/24/20 22:06 Zinc Sulfate 220 Mg Cap PO 220 mg BID VARUN Administration
[2020-10-25] MEDS: HEPARIN 5,000 UNIT/1 ML VIAL SUB-Q SCH ×2 (11:28→21:09)
[2020-10-25] MEDS: ASCORBIC ACID 500 MG TAB PO SCH ×2 (11:29→21:11)
[2020-10-25] MEDS: FAMOTIDINE 10 MG TAB PO SCH ×2 (11:29→21:09)
[2020-10-25] MEDS: CHOLECALCIFEROL (VIT D3) 1000 UNIT (25 mcg) TAB PO SCH (11:30)
[2020-10-25] MEDS: ZINC SULFATE 220 MG CAP PO SCH ×2 (11:30→21:11)
[2020-10-25] MEDS: cefTRIAXone/NS 2 GM/100 ML 2 GM/100 ML BAG IV SCH (14:25)
--- NOTE | 2020-10-25 15:18 | Progress Note ---
Assessment and Plan Cultures: Blood culture no growth so far. COVID PCR: positive A/P: 40-year-old man past medical history obesity #Severe COVID-19 pneumonia: Patient presented with a week of symptoms, chest x- ray with diffuse bilateral infiltrates, admission O2 sats on room air. Inflammatory markers elevated #Acute hypoxemic respiratory failure: Likely secondary to COVID-19 infection. Currently on 9L NC #Obesity #KACIE; improving #Elevated transaminases: likely from COVID Recs: -Steroids for 10 days -Remdesivir 200 mg IV q day x 1 followed by 100 mg IV q day x 4 days, as renal function has improved. -Obtain q48-72h inflammatory markers - ferritin, Ddimer, CRP, LDH -Continue ceftriaxone 2 gm IV qday and azithromycin 500 mg PO qday to complete 5 and 3 days respectively. -Anticoagulation per hospital protocol -Proning as able Thank you for the consult, we will continue to follow. Daja Kaye MD [facility] O: [phone] F: [phone] Subjective Date of service: 10/25/20 Interval history: Afebrile, white count increased to 17.4. Currently on 9 L salt Objective - Exam Narrative Exam: Physical exam deferred to reduce risk of transmission of COVID-19. Please refer to primary team's note. - Constitutional Vitals: Vital Signs Temp Pulse Resp BP Pulse Ox 98.6 F 85 20 143/92 92 10/25/20 11:48 10/25/20 11:48 10/25/20 11:48 10/25/20 11:48 10/25/20 11:48 Temperature -Last 24 Hours Temperature 98.6 F Temperature 98.3 F Temperature 98.6 F Temperature 98.1 F - Labs CBC & Chem 7: 10/25/20 08:21 10/25/20 08:21 Labs: Abnormal lab results 10/25/20 10/25/20 Range/Units 08:21 08:21 WBC 17.4 H (4.5-11.0) K/mm3 RBC 5.08 H (3.65-5.03) M/mm3 Hct 46.1 H (35.5-45.6) % BUN 38 H (9-20) mg/dL Creatinine 1.8 H (0.8-1.3) mg/dL Glucose 119 H (75-100) mg/dL AST 51 H (5-40) units/L ALT 105 H (7-56) units/L Albumin 3.2 L (3.9-5) g/dL
--- NOTE | 2020-10-25 16:28 | Progress Note ---
Assessment and Plan 40 y/o male with acute respiratory failure, concern for COVID positive state with pneumonia and renal failure 10/25/20: Continue to wean FiO2 as tolerated. Continue steroids. Prone if possible. Renal function improving. Guarded prognosis. 10/24/20: Continue current level of care. Would be mindful of pain management as patient has several meds available and appears to be using all of them. Given his respiratory state, at risk for failure if too many meds provided. Also will not clear as fast given renal failure. Dilaudid is the best choice given his renal insufficiency. Prone if able. 1. AGree with steroids 2. Prone if able 3. Follow up renal recs 4. If covid positive plus renal failure, extremely guarded prognosis. Subjective Date of service: 10/25/20 Interval history: Dropped to 9 liters. S at is 92. Objective Vital Signs - 12hr 10/25/20 10/25/20 10/25/20 10:00 11:48 15:34 Temperature 98.6 F 98.4 F Pulse Rate 85 86 Respiratory 20 18 Rate Blood Pressure 143/92 143/80 O2 Sat by Pulse 92 92 91 Oximetry 10/25/20 15:36 Temperature Pulse Rate Respiratory Rate Blood Pressure O2 Sat by Pulse 94 Oximetry CBC and BMP: 10/25/20 08:21 10/25/20 08:21 ABG, PT/INR, D-dimer: PT/INR, D-dimer D-Dimer 872.83 ng/mlDDU (0-234) H 10/22/20 14:04 Abnormal lab findings: Abnormal Labs 10/22/20 10/22/20 10/22/20 12:16 12:16 14:04 WBC 12.3 H RBC 5.12 H Hgb 15.6 H Hct 47.2 H RDW Seg Neuts % (Manual) 79.0 H Lymphocytes % (Manual) Seg Neutrophils # Man 9.7 H Lymphocytes # (Manual) D-Dimer 872.83 H Sodium 132 L Potassium Carbon Dioxide 19 L BUN 47 H Creatinine 4.2 H Glucose 123 H AST 127 H ALT 113 H Lactate Dehydrogenase C-Reactive Protein Albumin 3.6 L Urine Creatinine Urine Chloride Coronavirus (PCR) 10/22/20 10/23/20 10/23/20 14:04 07:06 07:06 WBC RBC 5.06 H Hgb 15.6 H Hct 46.0 H RDW Seg Neuts % (Manual) 86.0 H Lymphocytes % (Manual) 4.0 L Seg Neutrophils # Man 8.4 H Lymphocytes # (Manual) 0.4 L D-Dimer Sodium 133 L Potassium 5.5 H Carbon Dioxide 21 L BUN 45 H Creatinine 3.2 H Glucose 150 H AST ALT Lactate Dehydrogenase 709 H C-Reactive Protein 17.30 H Albumin Urine Creatinine Urine Chloride Coronavirus (PCR) 10/23/20 10/23/20 10/24/20 13:00 Unknown 04:58 WBC 15.7 H RBC Hgb Hct 46.9 H RDW 15.5 H Seg Neuts % (Manual) Lymphocytes % (Manual) Seg Neutrophils # Man Lymphocytes # (Manual) D-Dimer Sodium Potassium Carbon Dioxide BUN Creatinine Glucose AST ALT Lactate Dehydrogenase C-Reactive Protein Albumin Urine Creatinine 147.6 H Urine Chloride 14.1 L Coronavirus (PCR) Positive A 10/24/20 10/25/20 10/25/20 04:58 08:21 08:21 WBC 17.4 H RBC 5.08 H Hgb Hct 46.1 H RDW Seg Neuts % (Manual) Lymphocytes % (Manual) Seg Neutrophils # Man Lymphocytes # (Manual) D-Dimer Sodium 135 L Potassium 5.9 H Carbon Dioxide 21 L BUN 46 H 38 H Creatinine 2.3 H 1.8 H Glucose 147 H 119 H AST 87 H 51 H ALT 129 H 105 H Lactate Dehydrogenase C-Reactive Protein Albumin 3.5 L 3.2 L Urine Creatinine Urine Chloride Coronavirus (PCR)
[2020-10-25] MEDS: REMDESIVIR 100 MG in SODIUM CHLORIDE 0.9% 250ML 250 ML IV SCH (21:09)
[2020-10-25] MEDS: oxyCODONE /ACETAMINOPHEN 5-325MG TAB PO PRN (22:30)
[2020-10-26] MEDS: methylPREDNISolone Sod Succinate 40 MG/1 ML INJ IV SCH ×3 (06:31→22:34)
[2020-10-26 08:38] LABS: Alanine Aminotransferase 90 units/L (7-56); Albumin 3.3 g/dL (3.9-5); BUN/Creatinine Ratio 21; Blood Urea Nitrogen 31 mg/dL (9-20); Calcium 9.1 mg/dL (8.4-10.2); Hemolysis Index 7
[2020-10-26 08:54] LABS: Hematocrit 46.3 % (35.5-45.6); Hemoglobin 15.1 gm/dl (11.8-15.2); Mean Corpuscular HGB Conc 33 % (32-34); Mean Corpuscular Volume 92 fl (84-94); Platelet Count 383 K/mm3 (140-440); Red Blood Count 5.05 M/mm3 (3.65-5.03); Red Cell Distribution Width 14.9 % (13.2-15.2)
[2020-10-26] MEDS: FAMOTIDINE 10 MG TAB PO SCH ×2 (11:11→22:33)
[2020-10-26] MEDS: CHOLECALCIFEROL (VIT D3) 1000 UNIT (25 mcg) TAB PO SCH (11:11)
[2020-10-26] MEDS: HEPARIN 5,000 UNIT/1 ML VIAL SUB-Q SCH ×2 (11:12→22:34)
[2020-10-26] MEDS: ZINC SULFATE 220 MG CAP PO SCH ×2 (11:12→22:35)
[2020-10-26] MEDS: ASCORBIC ACID 500 MG TAB PO SCH ×2 (11:12→22:34)
--- NOTE | 2020-10-26 13:21 | Progress Note ---
Assessment and Plan Assessment and plan: 40 YO Male with Obesity Hypoventilation Syndrome, Coronavirus Infection diagnosed 1 week ago presents to ED for evaluation. Patient reports "it is hard for me to breathe". Patient states that he has experienced shortness of breath, subjective fever, loss of sense of smell, loss of sense of taste, fatigue, malaise, nausea, multiple episodes of vomiting, diminished oral intake and a subjective weight loss of 15 pounds over the past 1 week. Patient transported to [facility] via private vehicle for further care and evaluation of the aforementioned symptoms. The patient was seen and evaluated in the emergency department. All lab and imaging studies reviewed. Patient was found to have a pulse oximetry of 84% on exertion which is consistent with acute hypoxemic respiratory failure. Chest x-ray revealed bilateral pneumonia. Patient admitted to medical floor and initiated on coronavirus protocol as well as pneumonia protocol. Patient denies chills, chest pain, palpitations, skin rash. Patient knowledges suspected contact with coronavirus positive individuals. No prior admission for review. No medication listed at time of admission reconciliation. 10/23: Patient seen and examined today. We will increase him to high flow due to severe hypoxia. Have consulted pulmonary and also infectious disease. He is started on high-dose steroids. Likely not a candidate for remdesivir due to renal dysfunction. I have encouraged him to prone also discussed with his . Unfortunately he is unvaccinated. His also was affected but he states that hers was mild. Wean oxygen as tolerated. Will defer Actemra to infectious disease team. Renal function showing some slight improvement will give a dose of Kayexalate for the hyperkalemia. Chest x-ray shows bilateral diffuse opacities 10/24 Patient with Covid-19 pneumonia with acute respiratory failure. On Oxygen at 10 l/min. On Remdesivir. KACIE improving. Hyperkalemia worse, Potassium 5.9 today. Kayexalate, Insulin ordered. 10/25/20 Patient with Covid-19 pneumonia with acute respiratory failure. Now on Oxygen at 9 l/min NC. KACIE improving Cr 1.8 today. Hyperkalemia resolved. Potassium 4.9 10/26/20 Patient with Covid-19 pneumonia with acute hypoxemic respiratory failure. KACIE improving. His Cr down to 1.5 today. On Oxygen at 10 l/min. (1) Acute hypoxemic respiratory failure Current Visit: Yes Status: Acute Plan to address problem: Chest x-ray, supplemental oxygen, pulse oximetry, nebulizer therapy, pulmonary toilet (2) Pneumonia Current Visit: Yes Status: Acute Plan to address problem: Pneumonia protocol: Chest x-ray, CBC, CMP, supplemental oxygen, pulse oximetry, nebulizer therapy, blood culture. (3) Obesity hypoventilation syndrome Current Visit: Yes Status: Acute Plan to address problem: Balanced diet, increase physical activity at discharge, outpatient pulmonary follow-up for sleep study, (4) COVID-19 virus infection Current Visit: Yes Status: Acute Plan to address problem: Coronavirus protocol: IV antibiotic therapy, IV steroid therapy, supplemental oxygen, pulse oximetry, vitamin C therapy, vitamin D therapy, zinc therapy, prone positioning while in bed, prophylactic anticoagulation. (5) Acute kidney injury with vasomotor nephropathy (6) Hyperkalemia (7) DVT prophylaxis Current Visit: Yes Status: Acute Plan to address problem: SCDs bilateral lower extremities while in bed, prophylactic anticoagulation. History Interval history: shortness of breath Hospitalist Physical - Physical exam Narrative exam: Gen:Not in acute distress, lying in bed,obese HEENT:Normocephalic, atraumatic Neck:supple, no JVD Lungs: Bilateral crackles, no wheeze Heart:S1 and S2 reg, no murmurs, rubs or gallop Abd:Soft, non tender, non distended, normal bowel sounds Ext:No edema. no clubbing, no cyanosis Neuro:Awake, alert, oriented X 3, moves all ext - Constitutional Vitals: Temp Pulse Resp BP Pulse Ox 98.5 F 79 20 133/85 92 10/26/20 05:45 10/26/20 05:45 10/26/20 05:45 10/26/20 05:45 10/26/20 12:36 General appearance: Present: obese Results - Labs CBC & Chem 7: 10/26/20 06:40 10/26/20 06:40 Labs: Laboratory Last Values WBC 14.5 K/mm3 (4.5-11.0) H 10/26/20 06:40 RBC 5.05 M/mm3 (3.65-5.03) H 10/26/20 06:40 Hgb 15.1 gm/dl (11.8-15.2) 10/26/20 06:40 Hct 46.3 % (35.5-45.6) H 10/26/20 06:40 MCV 92 fl (84-94) 10/26/20 06:40 MCH 30 pg (28-32) 10/26/20 06:40 MCHC 33 % (32-34) 10/26/20 06:40 RDW 14.9 % (13.2-15.2) 10/26/20 06:40 Plt Count 383 K/mm3 (140-440) 10/26/20 06:40 Add Manual Diff Complete 10/23/20 07:06 Total Counted 100 10/23/20 07:06 Seg Neuts % (Manual) 86.0 % (40.0-70.0) H 10/23/20 07:06 Band Neutrophils % 2.0 % 10/23/20 07:06 Lymphocytes % (Manual) 4.0 % (13.4-35.0) L 10/23/20 07:06 Reactive Lymphs % (Man) 1.0 % 10/22/20 12:16 Monocytes % (Manual) 5.0 % (0.0-7.3) 10/23/20 07:06 Metamyelocytes % 1.0 % 10/23/20 07:06 Myelocytes % 2.0 % 10/23/20 07:06 Promyelocytes % 3.0 % 10/22/20 12:16 Nucleated RBC % Not Reportable 10/23/20 07:06 Seg Neutrophils # Man 8.4 K/mm3 (1.8-7.7) H 10/23/20 07:06 Band Neutrophils # 0.2 K/mm3 10/23/20 07:06 Lymphocytes # (Manual) 0.4 K/mm3 (1.2-5.4) L 10/23/20 07:06 Abs React Lymphs (Man) 0.0 K/mm3 10/23/20 07:06 Monocytes # (Manual) 0.5 K/mm3 (0.0-0.8) 10/23/20 07:06 Eosinophils # (Manual) 0.0 K/mm3 (0.0-0.4) 10/23/20 07:06 Basophils # (Manual) 0.0 K/mm3 (0.0-0.1) 10/23/20 07:06 Metamyelocytes # 0.1 K/mm3 10/23/20 07:06 Myelocytes # 0.2 K/mm3 10/23/20 07:06 Promyelocytes # 0.0 K/mm3 10/23/20 07:06 Blast Cells # 0.0 K/mm3 10/23/20 07:06 WBC Morphology Not Reportable 10/23/20 07:06 Hypersegmented Neuts Not Reportable 10/23/20 07:06 Hyposegmented Neuts Not Reportable 10/23/20 07:06 Hypogranular Neuts Not Reportable 10/23/20 07:06 Smudge Cells Not Reportable 10/23/20 07:06 Toxic Granulation Not Reportable 10/23/20 07:06 Toxic Vacuolation Not Reportable 10/23/20 07:06 Dohle Bodies Not Reportable 10/23/20 07:06 Pelger-Huet Anomaly Not Reportable 10/23/20 07:06 Fariba Rods Not Reportable 10/23/20 07:06 Platelet Estimate Consistent w auto 10/23/20 07:06 Clumped Platelets Not Reportable 10/23/20 07:06 Plt Clumps, EDTA Not Reportable 10/23/20 07:06 Large Platelets Not Reportable 10/23/20 07:06 Giant Platelets Not Reportable 10/23/20 07:06 Platelet Satelliting Not Reportable 10/23/20 07:06 Plt Morphology Comment Not Reportable 10/23/20 07:06 RBC Morphology Normal 10/23/20 07:06 Dimorphic RBCs Not Reportable 10/23/20 07:06 Polychromasia Not Reportable 10/23/20 07:06 Hypochromasia Not Reportable 10/23/20 07:06 Poikilocytosis Not Reportable 10/23/20 07:06 Anisocytosis Not Reportable 10/23/20 07:06 Microcytosis Not Reportable 10/23/20 07:06 Macrocytosis Not Reportable 10/23/20 07:06 Spherocytes Not Reportable 10/23/20 07:06 Pappenheimer Bodies Not Reportable 10/23/20 07:06 Sickle Cells Not Reportable 10/23/20 07:06 Target Cells Not Reportable 10/23/20 07:06 Tear Drop Cells Not Reportable 10/23/20 07:06 Ovalocytes Not Reportable 10/23/20 07:06 Helmet Cells Not Reportable 10/23/20 07:06 [place] Bodies Not Reportable 10/23/20 07:06 Bond Rings Not Reportable 10/23/20 07:06 Clay Cells Not Reportable 10/23/20 07:06 Bite Cells Not Reportable 10/23/20 07:06 Crenated Cell Not Reportable 10/23/20 07:06 Elliptocytes Not Reportable 10/23/20 07:06 Acanthocytes (Spur) Not Reportable 10/23/20 07:06 Rouleaux Not Reportable 10/23/20 07:06 Hemoglobin C Crystals Not Reportable 10/23/20 07:06 Schistocytes Not Reportable 10/23/20 07:06 Malaria parasites Not Reportable 10/23/20 07:06 Calvin Bodies Not Reportable 10/23/20 07:06 Hem Pathologist Commnt No 10/23/20 07:06 D-Dimer 872.83 ng/mlDDU (0-234) H 10/22/20 14:04 Sodium 143 mmol/L (137-145) 10/26/20 06:40 Potassium 4.8 mmol/L (3.6-5.0) 10/26/20 06:40 Chloride 104.8 mmol/L (98-107) 10/26/20 06:40 Carbon Dioxide 26 mmol/L (22-30) 10/26/20 06:40 Anion Gap 17 mmol/L 10/26/20 06:40 BUN 31 mg/dL (9-20) H 10/26/20 06:40 Creatinine 1.5 mg/dL (0.8-1.3) H 10/26/20 06:40 Estimated GFR > 60 ml/min 10/26/20 06:40 BUN/Creatinine Ratio 21 % 10/26/20 06:40 Glucose 136 mg/dL (75-100) H 10/26/20 06:40 Calcium 9.1 mg/dL (8.4-10.2) 10/26/20 06:40 Total Bilirubin 0.40 mg/dL (0.1-1.2) 10/26/20 06:40 AST 43 units/L (5-40) H 10/26/20 06:40 ALT 90 units/L (7-56) H 10/26/20 06:40 Alkaline Phosphatase 59 units/L (35-129) 10/26/20 06:40 Lactate Dehydrogenase 709 units/L (91-180) H 10/22/20 14:04 C-Reactive Protein 17.30 mg/dL (0.00-1.30) H 10/22/20 14:04 NT-Pro-B Natriuret Pep 83.97 pg/mL (0-450) 10/22/20 14:04 Total Protein 6.8 g/dL (6.3-8.2) 10/26/20 06:40 Albumin 3.3 g/dL (3.9-5) L 10/26/20 06:40 Albumin/Globulin Ratio 0.9 % 10/26/20 06:40 Procalcitonin 0.50 ng/mL (<0.15) 10/22/20 14:04 Urine Color Yellow (Yellow) 10/23/20 13:00 Urine Turbidity Clear (Clear) 10/23/20 13:00 Urine pH 6.0 (5.0-7.0) 10/23/20 13:00 Ur Specific [place] 1.015 (1.003-1.030) 10/23/20 13:00 Urine Protein 30 mg/dl mg/dL (Negative) 10/23/20 13:00 Urine Glucose (UA) Neg mg/dL (Negative) 10/23/20 13:00 Urine Ketones Neg mg/dL (Negative) 10/23/20 13:00 Urine Blood Mod (Negative) 10/23/20 13:00 Urine Nitrite Neg (Negative) 10/23/20 13:00 Urine Bilirubin Neg (Negative) 10/23/20 13:00 Urine Urobilinogen 2.0 mg/dL (<2.0) 10/23/20 13:00 Ur Leukocyte Esterase Neg (Negative) 10/23/20 13:00 Urine WBC (Auto) 4.0 /HPF (0.0-6.0) 10/23/20 13:00 Urine RBC (Auto) 2.0 /HPF (0.0-6.0) 10/23/20 13:00 Urine Mucus Few /HPF 10/23/20 13:00 Urine Creatinine 147.6 mg/dL (0.1-20.0) H 10/23/20 13:00 Urine Sodium 34 mmol/L 10/23/20 13:00 Urine Chloride 14.1 mmolL (110-250) L 10/23/20 13:00 Coronavirus (PCR) Positive (Negative) A 10/23/20 Unknown Gregorio/IV: Voiding Method Urinal Active Medications - Current Medications Current Medications: Generic Name Dose Route Start Last Admin Trade Name Freq PRN Reason Stop Dose Admin Acetaminophen 650 mg 10/22/20 14:57 10/22/20 17:21 Acetaminophen 325 Mg Tab PO 650 mg Q4H PRN Administration Pain MILD(1-3)/Fever >100.5/THOMPSON Albuterol 2.5 mg 10/22/20 14:57 Albuterol 2.5 Mg/3 Ml Nebu IH Q4HRT PRN Shortness Of Breath Ascorbic Acid 500 mg 10/22/20 22:00 10/26/20 11:12 Ascorbic Acid 500 Mg Tab PO 500 mg BID VARUN Administration Cholecalciferol 1,000 unit 10/23/20 10:00 10/26/20 11:11 Cholecalciferol (Vit D3) 1000 Unit (25 Mcg) Tab PO 1,000 unit QDAY VARUN Administration Famotidine 10 mg 10/22/20 22:00 10/26/20 11:11 Famotidine 10 Mg Tab PO 10 mg BID VARUN Administration Heparin Sodium (Porcine) 5,000 unit 10/22/20 22:00 10/26/20 11:12 Heparin 5,000 Unit/1 Ml Vial SUB-Q 5,000 unit Q12HR VARUN Administration Hydromorphone HCl 0.5 mg 10/22/20 14:57 10/25/20 01:14 Hydromorphone 1 Mg/1 Ml Inj IV 0.5 mg Q12H PRN Administration Pain , Severe (7-10) Ceftriaxone Sodium 2 gm in 100 mls @ 200 mls/hr 10/22/20 15:00 10/25/20 14:25 Rocephin/Ns 2 Gm/100 Ml IV 10/26/20 15:29 200 mls/hr Q24H VARUN Administration Protocol Sodium Chloride 1,000 mls @ 100 mls/hr 10/23/20 11:00 10/23/20 22:00 Nacl 0.9% 1000 Ml IV 100 mls/hr DIRECT VARUN Administration REMDESIVIR 100 mg/ Sodium 250 mls @ 500 mls/hr 10/25/20 21:00 10/25/20 21:09 Chloride IV 10/28/20 21:29 500 mls/hr Q24HR@2100 VARUN Administration Methylprednisolone Sodium Succinate 40 mg 10/22/20 22:00 10/26/20 06:31 Methylprednisolone Sod Succinate 40 Mg/1 Ml Inj IV Not Given Q8HR VARUN Ondansetron HCl 4 mg 10/22/20 14:57 10/23/20 23:42 Ondansetron 4 Mg/2 Ml Inj IV 4 mg Q8H PRN Administration Nausea And Vomiting Oxycodone/Acetaminophen 1 tab 10/22/20 14:57 10/25/20 22:30 Oxycodone /Acetaminophen 5-325mg Tab PO 1 tab Q12H PRN Administration Pain, Moderate (4-6) Sodium Chloride 10 ml 10/22/20 22:00 10/25/20 21:11 Sodium Chloride 0.9% 10 Ml Flush Syringe IV 10 ml BID VARUN Administration Sodium Chloride 10 ml 10/22/20 14:57 Sodium Chloride 0.9% 10 Ml Flush Syringe IV PRN PRN LINE FLUSH Sodium Chloride 50 ml 10/24/20 14:00 10/25/20 21:09 Sodium Chloride 0.9% 50 Ml Ivpb IV 10/27/20 21:01 50 ml Q24HR@2100 VARUN Administration Zinc Sulfate 220 mg 10/22/20 22:00 10/26/20 11:12 Zinc Sulfate 220 Mg Cap PO 220 mg BID VARUN Administration
--- NOTE | 2020-10-26 13:41 | Progress Note ---
Assessment and Plan Cultures: Blood culture no growth so far. COVID PCR: positive A/P: 40-year-old man past medical history obesity #Severe COVID-19 pneumonia: Patient presented with a week of symptoms, chest x- ray with diffuse bilateral infiltrates, admission O2 sats on room air. Inflammatory markers elevated #Acute hypoxemic respiratory failure: Likely secondary to COVID-19 infection. Currently on 10L NC #Obesity #KACIE; improving #Elevated transaminases: likely from COVID Recs: -Steroids for 10 days -Remdesivir 200 mg IV q day x 1 followed by 100 mg IV q day x 4 days, as renal function has improved. -Obtain q48-72h inflammatory markers - ferritin, Ddimer, CRP, LDH -Continue ceftriaxone 2 gm IV qday and azithromycin 500 mg PO qday to complete 5 and 3 days respectively. -Anticoagulation per hospital protocol -Proning as able Thank you for the consult, we will continue to follow. Daja Kaye MD [facility] O: [phone] F: [phone] Subjective Date of service: 10/26/20 Interval history: afebrile, white count improved to 14.5. On 10L [place]. Objective - Exam Narrative Exam: Physical exam deferred to reduce risk of transmission of COVID-19. Please refer to primary team's note. - Constitutional Vitals: Vital Signs Temp Pulse Resp BP Pulse Ox 98.5 F 79 20 133/85 92 10/26/20 05:45 10/26/20 05:45 10/26/20 05:45 10/26/20 05:45 10/26/20 12:36 Temperature -Last 24 Hours Temperature 98.5 F Temperature 98.5 F Temperature 98.4 F - Labs CBC & Chem 7: 10/26/20 06:40 10/26/20 06:40 Labs: Abnormal lab results 10/26/20 10/26/20 Range/Units 06:40 06:40 WBC 14.5 H (4.5-11.0) K/mm3 RBC 5.05 H (3.65-5.03) M/mm3 Hct 46.3 H (35.5-45.6) % BUN 31 H (9-20) mg/dL Creatinine 1.5 H (0.8-1.3) mg/dL Glucose 136 H (75-100) mg/dL AST 43 H (5-40) units/L ALT 90 H (7-56) units/L Albumin 3.3 L (3.9-5) g/dL
[2020-10-26] MEDS: cefTRIAXone/NS 2 GM/100 ML 2 GM/100 ML BAG IV SCH (14:03)
--- NOTE | 2020-10-26 16:38 | Progress Note ---
Assessment and Plan 40 y/o male with acute respiratory failure, concern for COVID positive state with pneumonia and renal failure 10/26/20: Renal function continues to improve but oxygen is the same. Needs to prone more. Continue steroids, may need to consider upping the dose, especially if oxygen requirement increases. Guarded prognosis. 10/25/20: Continue to wean FiO2 as tolerated. Continue steroids. Prone if possible. Renal function improving. Guarded prognosis. 10/24/20: Continue current level of care. Would be mindful of pain management as patient has several meds available and appears to be using all of them. Given his respiratory state, at risk for failure if too many meds provided. Also will not clear as fast given renal failure. Dilaudid is the best choice given his renal insufficiency. Prone if able. 1. AGree with steroids 2. Prone if able 3. Follow up renal recs 4. If covid positive plus renal failure, extremely guarded prognosis. Subjective Date of service: 10/26/20 Interval history: Still on 10 liters with sats in the low 90's Objective Vital Signs - 12hr 10/26/20 10/26/20 10/26/20 05:45 07:31 12:36 Temperature 98.5 F Pulse Rate 79 Respiratory 20 Rate Blood Pressure 133/85 O2 Sat by Pulse 88 95 92 Oximetry 10/26/20 15:44 Temperature Pulse Rate Respiratory Rate Blood Pressure O2 Sat by Pulse 91 Oximetry CBC and BMP: 10/26/20 06:40 10/26/20 06:40 ABG, PT/INR, D-dimer: PT/INR, D-dimer D-Dimer 872.83 ng/mlDDU (0-234) H 10/22/20 14:04 Abnormal lab findings: Abnormal Labs 10/22/20 10/22/20 10/22/20 12:16 12:16 14:04 WBC 12.3 H RBC 5.12 H Hgb 15.6 H Hct 47.2 H RDW Seg Neuts % (Manual) 79.0 H Lymphocytes % (Manual) Seg Neutrophils # Man 9.7 H Lymphocytes # (Manual) D-Dimer 872.83 H Sodium 132 L Potassium Carbon Dioxide 19 L BUN 47 H Creatinine 4.2 H Glucose 123 H AST 127 H ALT 113 H Lactate Dehydrogenase C-Reactive Protein Albumin 3.6 L Urine Creatinine Urine Chloride Coronavirus (PCR) 10/22/20 10/23/20 10/23/20 14:04 07:06 07:06 WBC RBC 5.06 H Hgb 15.6 H Hct 46.0 H RDW Seg Neuts % (Manual) 86.0 H Lymphocytes % (Manual) 4.0 L Seg Neutrophils # Man 8.4 H Lymphocytes # (Manual) 0.4 L D-Dimer Sodium 133 L Potassium 5.5 H Carbon Dioxide 21 L BUN 45 H Creatinine 3.2 H Glucose 150 H AST ALT Lactate Dehydrogenase 709 H C-Reactive Protein 17.30 H Albumin Urine Creatinine Urine Chloride Coronavirus (PCR) 10/23/20 10/23/20 10/24/20 13:00 Unknown 04:58 WBC 15.7 H RBC Hgb Hct 46.9 H RDW 15.5 H Seg Neuts % (Manual) Lymphocytes % (Manual) Seg Neutrophils # Man Lymphocytes # (Manual) D-Dimer Sodium Potassium Carbon Dioxide BUN Creatinine Glucose AST ALT Lactate Dehydrogenase C-Reactive Protein Albumin Urine Creatinine 147.6 H Urine Chloride 14.1 L Coronavirus (PCR) Positive A 10/24/20 10/25/20 10/25/20 04:58 08:21 08:21 WBC 17.4 H RBC 5.08 H Hgb Hct 46.1 H RDW Seg Neuts % (Manual) Lymphocytes % (Manual) Seg Neutrophils # Man Lymphocytes # (Manual) D-Dimer Sodium 135 L Potassium 5.9 H Carbon Dioxide 21 L BUN 46 H 38 H Creatinine 2.3 H 1.8 H Glucose 147 H 119 H AST 87 H 51 H ALT 129 H 105 H Lactate Dehydrogenase C-Reactive Protein Albumin 3.5 L 3.2 L Urine Creatinine Urine Chloride Coronavirus (PCR) 10/26/20 10/26/20 06:40 06:40 WBC 14.5 H RBC 5.05 H Hgb Hct 46.3 H RDW Seg Neuts % (Manual) Lymphocytes % (Manual) Seg Neutrophils # Man Lymphocytes # (Manual) D-Dimer Sodium Potassium Carbon Dioxide BUN 31 H Creatinine 1.5 H Glucose 136 H AST 43 H ALT 90 H Lactate Dehydrogenase C-Reactive Protein Albumin 3.3 L Urine Creatinine Urine Chloride Coronavirus (PCR)
--- NOTE | 2020-10-26 17:54 | Progress Note ---
Assessment and Plan - Patient Problems (1) Acute renal failure Current Visit: Yes Status: Acute Qualifiers: Acute renal failure type: unspecified Qualified Code(s): N17.9 - Acute kidney failure, unspecified Plan to address problem: Likely pre-renal etiology He remains non oliguric at this time. renal function is showing appropriate improvement with IV fluid hydration. renal ultrasound did not show any acute abnormalities. (2) Hyperkalemia Current Visit: Yes Status: Acute Plan to address problem: Likely in the setting of KACIE. Anticipate that with adequate IVF hydration and increased distal tubule sodium delivery, we should see increase in potassium excretion. Levels improved at this time. (3) Pneumonia due to COVID-19 virus Current Visit: Yes Status: Acute Plan to address problem: Management per primary team,/ID (4) Hypoxia Current Visit: Yes Status: Acute Plan to address problem: management per pulmonary recommendations. Subjective Date of service: 10/26/20 Interval history: No acute changes from renal standpoint. Objective - Exam Narrative Exam: patient not directly examined in order to preserve PPE and limit spread of COVID-19. Physical examination from primary team reviewed at this time. - Vital Signs Vital signs: Vital Signs - 12hr 10/26/20 10/26/20 10/26/20 07:31 11:11 12:36 Temperature 98.6 F Pulse Rate 89 Respiratory 24 Rate Blood Pressure 141/86 O2 Sat by Pulse 95 89 92 Oximetry 10/26/20 15:44 Temperature Pulse Rate Respiratory Rate Blood Pressure O2 Sat by Pulse 91 Oximetry - Lab 10/26/20 06:40 10/26/20 06:40 Most recent lab results Calcium 9.1 mg/dL (8.4-10.2) 10/26/20 06:40 Urine Creatinine 147.6 mg/dL (0.1-20.0) H 10/23/20 13:00 Urine Sodium 34 mmol/L 10/23/20 13:00 Medications & Allergies - Medications Allergies/Adverse Reactions: Allergies No Known Allergies Allergy (Verified 10/22/20 15:01) Home Medications: Home Medications Medication Instructions Recorded Confirmed Last Taken Type No Known Home Medications [No 10/25/20 10/25/20 Unknown History Reported Home Medications] Active Medications: Generic Name Dose Route Start Last Admin Trade Name Freq PRN Reason Stop Dose Admin Acetaminophen 650 mg 10/22/20 14:57 10/22/20 17:21 Acetaminophen 325 Mg Tab PO 650 mg Q4H PRN Administration Pain MILD(1-3)/Fever >100.5/THOMPSON Albuterol 2.5 mg 10/22/20 14:57 Albuterol 2.5 Mg/3 Ml Nebu IH Q4HRT PRN Shortness Of Breath Ascorbic Acid 500 mg 10/22/20 22:00 10/26/20 11:12 Ascorbic Acid 500 Mg Tab PO 500 mg BID VARUN Administration Cholecalciferol 1,000 unit 10/23/20 10:00 10/26/20 11:11 Cholecalciferol (Vit D3) 1000 Unit (25 Mcg) Tab PO 1,000 unit QDAY VARUN Administration Famotidine 10 mg 10/22/20 22:00 10/26/20 11:11 Famotidine 10 Mg Tab PO 10 mg BID VARUN Administration Guaifenesin 200 mg 10/26/20 14:29 Guaifenesin 100 Mg/5 Ml Oral Liqd PO Q4H PRN Cough Heparin Sodium (Porcine) 5,000 unit 10/22/20 22:00 10/26/20 11:12 Heparin 5,000 Unit/1 Ml Vial SUB-Q 5,000 unit Q12HR VARUN Administration Hydromorphone HCl 0.5 mg 10/22/20 14:57 10/25/20 01:14 Hydromorphone 1 Mg/1 Ml Inj IV 0.5 mg Q12H PRN Administration Pain , Severe (7-10) Sodium Chloride 1,000 mls @ 100 mls/hr 10/23/20 11:00 10/23/20 22:00 Nacl 0.9% 1000 Ml IV 100 mls/hr DIRECT VARUN Administration REMDESIVIR 100 mg/ Sodium 250 mls @ 500 mls/hr 10/25/20 21:00 10/25/20 21:09 Chloride IV 10/28/20 21:29 500 mls/hr Q24HR@2100 VARUN Administration Methylprednisolone Sodium Succinate 40 mg 10/22/20 22:00 10/26/20 14:03 Methylprednisolone Sod Succinate 40 Mg/1 Ml Inj IV 40 mg Q8HR VARUN Administration Ondansetron HCl 4 mg 10/22/20 14:57 10/23/20 23:42 Ondansetron 4 Mg/2 Ml Inj IV 4 mg Q8H PRN Administration Nausea And Vomiting Oxycodone/Acetaminophen 1 tab 10/22/20 14:57 10/25/20 22:30 Oxycodone /Acetaminophen 5-325mg Tab PO 1 tab Q12H PRN Administration Pain, Moderate (4-6) Sodium Chloride 10 ml 10/22/20 22:00 10/26/20 14:03 Sodium Chloride 0.9% 10 Ml Flush Syringe IV 10 ml BID VARUN Administration Sodium Chloride 10 ml 10/22/20 14:57 Sodium Chloride 0.9% 10 Ml Flush Syringe IV PRN PRN LINE FLUSH Sodium Chloride 50 ml 10/24/20 14:00 10/25/20 21:09 Sodium Chloride 0.9% 50 Ml Ivpb IV 10/27/20 21:01 50 ml Q24HR@2100 VARUN Administration Zinc Sulfate 220 mg 10/22/20 22:00 10/26/20 11:12 Zinc Sulfate 220 Mg Cap PO 220 mg BID VARUN Administration
[2020-10-26] MEDS: guaiFENesin 100 MG/5 ML ORAL LIQD PO PRN (22:33)
[2020-10-26] MEDS: REMDESIVIR 100 MG in SODIUM CHLORIDE 0.9% 250ML 250 ML IV SCH (22:33)
[2020-10-26] MEDS: SODIUM CHLORIDE 0.9% 50 ML IVPB IV SCH (22:33)
[2020-10-26] MEDS: oxyCODONE /ACETAMINOPHEN 5-325MG TAB PO PRN (22:34)
[2020-10-27] MEDS: oxyCODONE /ACETAMINOPHEN 5-325MG TAB PO PRN (02:47)
[2020-10-27] MEDS: methylPREDNISolone Sod Succinate 40 MG/1 ML INJ IV SCH ×3 (06:22→22:24)
[2020-10-27] MEDS: guaiFENesin 100 MG/5 ML ORAL LIQD PO PRN (06:22)
[2020-10-27 07:49] LABS: Hemoglobin 15.2 gm/dl (11.8-15.2); Mean Corpuscular HGB Conc 32 % (32-34); Mean Corpuscular Volume 91 fl (84-94); Platelet Count 376 K/mm3 (140-440); Red Blood Count 5.17 M/mm3 (3.65-5.03); Red Cell Distribution Width 14.8 % (13.2-15.2)
[2020-10-27 08:11] LABS: Alanine Aminotransferase 87 units/L (7-56); Albumin 3.1 g/dL (3.9-5); BUN/Creatinine Ratio 21; Blood Urea Nitrogen 29 mg/dL (9-20); Calcium 8.8 mg/dL (8.4-10.2); Hemolysis Index 8
--- NOTE | 2020-10-27 10:22 | Progress Note ---
Assessment and Plan Assessment and plan: 40 YO Male with Obesity Hypoventilation Syndrome, Coronavirus Infection diagnosed 1 week ago presents to ED for evaluation. Patient reports "it is hard for me to breathe". Patient states that he has experienced shortness of breath, subjective fever, loss of sense of smell, loss of sense of taste, fatigue, malaise, nausea, multiple episodes of vomiting, diminished oral intake and a subjective weight loss of 15 pounds over the past 1 week. Patient transported to [facility] via private vehicle for further care and evaluation of the aforementioned symptoms. The patient was seen and evaluated in the emergency department. All lab and imaging studies reviewed. Patient was found to have a pulse oximetry of 84% on exertion which is consistent with acute hypoxemic respiratory failure. Chest x-ray revealed bilateral pneumonia. Patient admitted to medical floor and initiated on coronavirus protocol as well as pneumonia protocol. Patient denies chills, chest pain, palpitations, skin rash. Patient knowledges suspected contact with coronavirus positive individuals. No prior admission for review. No medication listed at time of admission reconciliation. 10/23: Patient seen and examined today. We will increase him to high flow due to severe hypoxia. Have consulted pulmonary and also infectious disease. He is started on high-dose steroids. Likely not a candidate for remdesivir due to renal dysfunction. I have encouraged him to prone also discussed with his . Unfortunately he is unvaccinated. His also was affected but he states that hers was mild. Wean oxygen as tolerated. Will defer Actemra to infectious disease team. Renal function showing some slight improvement will give a dose of Kayexalate for the hyperkalemia. Chest x-ray shows bilateral diffuse opacities 10/24 Patient with Covid-19 pneumonia with acute respiratory failure. On Oxygen at 10 l/min. On Remdesivir. KACIE improving. Hyperkalemia worse, Potassium 5.9 today. Kayexalate, Insulin ordered. 10/25/20 Patient with Covid-19 pneumonia with acute respiratory failure. Now on Oxygen at 9 l/min NC. KACIE improving Cr 1.8 today. Hyperkalemia resolved. Potassium 4.9 10/26/20 Patient with Covid-19 pneumonia with acute hypoxemic respiratory failure. KACIE improving. His Cr down to 1.5 today. On Oxygen at 10 l/min. 10/27/20 Patient with Covid-19 pneumonia with acute hypoxemic respiratory failure. Patient also has KACIE which is improving. His Cr down to 1.4 today.Still on Oxygen at 10 l/min. (1) Acute hypoxemic respiratory failure Current Visit: Yes Status: Acute Plan to address problem: Chest x-ray, supplemental oxygen, pulse oximetry, nebulizer therapy, pulmonary toilet (2) Pneumonia Current Visit: Yes Status: Acute Plan to address problem: Pneumonia protocol: Chest x-ray, CBC, CMP, supplemental oxygen, pulse oximetry, nebulizer therapy, blood culture. (3) Obesity hypoventilation syndrome Current Visit: Yes Status: Acute Plan to address problem: Balanced diet, increase physical activity at discharge, outpatient pulmonary follow-up for sleep study, (4) COVID-19 virus infection Current Visit: Yes Status: Acute Plan to address problem: Coronavirus protocol: IV antibiotic therapy, IV steroid therapy, supplemental oxygen, pulse oximetry, vitamin C therapy, vitamin D therapy, zinc therapy, prone positioning while in bed, prophylactic anticoagulation. (5) Acute kidney injury with vasomotor nephropathy (6) Hyperkalemia (7) DVT prophylaxis Current Visit: Yes Status: Acute Plan to address problem: SCDs bilateral lower extremities while in bed, prophylactic anticoagulation. History Interval history: Less shortness of breath Feels better Hospitalist Physical - Physical exam Narrative exam: Gen:Not in acute distress, lying in bed,obese HEENT:Normocephalic, atraumatic Neck:supple, no JVD Lungs: Bilateral crackles, no wheeze Heart:S1 and S2 reg, no murmurs, rubs or gallop Abd:Soft, non tender, non distended, normal bowel sounds Ext:No edema. no clubbing, no cyanosis Neuro:Awake, alert, oriented X 3, moves all ext - Constitutional Vitals: Temp Pulse Resp BP Pulse Ox 98.3 F 76 20 135/88 91 10/27/20 05:48 10/27/20 05:48 10/27/20 05:48 10/27/20 05:48 10/27/20 09:19 General appearance: Present: obese Results - Labs CBC & Chem 7: 10/27/20 06:49 10/27/20 06:49 Labs: Laboratory Last Values WBC 19.0 K/mm3 (4.5-11.0) H 10/27/20 06:49 RBC 5.17 M/mm3 (3.65-5.03) H 10/27/20 06:49 Hgb 15.2 gm/dl (11.8-15.2) 10/27/20 06:49 Hct 47.0 % (35.5-45.6) H 10/27/20 06:49 MCV 91 fl (84-94) 10/27/20 06:49 MCH 30 pg (28-32) 10/27/20 06:49 MCHC 32 % (32-34) 10/27/20 06:49 RDW 14.8 % (13.2-15.2) 10/27/20 06:49 Plt Count 376 K/mm3 (140-440) 10/27/20 06:49 Add Manual Diff Complete 10/23/20 07:06 Total Counted 100 10/23/20 07:06 Seg Neuts % (Manual) 86.0 % (40.0-70.0) H 10/23/20 07:06 Band Neutrophils % 2.0 % 10/23/20 07:06 Lymphocytes % (Manual) 4.0 % (13.4-35.0) L 10/23/20 07:06 Reactive Lymphs % (Man) 1.0 % 10/22/20 12:16 Monocytes % (Manual) 5.0 % (0.0-7.3) 10/23/20 07:06 Metamyelocytes % 1.0 % 10/23/20 07:06 Myelocytes % 2.0 % 10/23/20 07:06 Promyelocytes % 3.0 % 10/22/20 12:16 Nucleated RBC % Not Reportable 10/23/20 07:06 Seg Neutrophils # Man 8.4 K/mm3 (1.8-7.7) H 10/23/20 07:06 Band Neutrophils # 0.2 K/mm3 10/23/20 07:06 Lymphocytes # (Manual) 0.4 K/mm3 (1.2-5.4) L 10/23/20 07:06 Abs React Lymphs (Man) 0.0 K/mm3 10/23/20 07:06 Monocytes # (Manual) 0.5 K/mm3 (0.0-0.8) 10/23/20 07:06 Eosinophils # (Manual) 0.0 K/mm3 (0.0-0.4) 10/23/20 07:06 Basophils # (Manual) 0.0 K/mm3 (0.0-0.1) 10/23/20 07:06 Metamyelocytes # 0.1 K/mm3 10/23/20 07:06 Myelocytes # 0.2 K/mm3 10/23/20 07:06 Promyelocytes # 0.0 K/mm3 10/23/20 07:06 Blast Cells # 0.0 K/mm3 10/23/20 07:06 WBC Morphology Not Reportable 10/23/20 07:06 Hypersegmented Neuts Not Reportable 10/23/20 07:06 Hyposegmented Neuts Not Reportable 10/23/20 07:06 Hypogranular Neuts Not Reportable 10/23/20 07:06 Smudge Cells Not Reportable 10/23/20 07:06 Toxic Granulation Not Reportable 10/23/20 07:06 Toxic Vacuolation Not Reportable 10/23/20 07:06 Dohle Bodies Not Reportable 10/23/20 07:06 Pelger-Huet Anomaly Not Reportable 10/23/20 07:06 Fariba Rods Not Reportable 10/23/20 07:06 Platelet Estimate Consistent w auto 10/23/20 07:06 Clumped Platelets Not Reportable 10/23/20 07:06 Plt Clumps, EDTA Not Reportable 10/23/20 07:06 Large Platelets Not Reportable 10/23/20 07:06 Giant Platelets Not Reportable 10/23/20 07:06 Platelet Satelliting Not Reportable 10/23/20 07:06 Plt Morphology Comment Not Reportable 10/23/20 07:06 RBC Morphology Normal 10/23/20 07:06 Dimorphic RBCs Not Reportable 10/23/20 07:06 Polychromasia Not Reportable 10/23/20 07:06 Hypochromasia Not Reportable 10/23/20 07:06 Poikilocytosis Not Reportable 10/23/20 07:06 Anisocytosis Not Reportable 10/23/20 07:06 Microcytosis Not Reportable 10/23/20 07:06 Macrocytosis Not Reportable 10/23/20 07:06 Spherocytes Not Reportable 10/23/20 07:06 Pappenheimer Bodies Not Reportable 10/23/20 07:06 Sickle Cells Not Reportable 10/23/20 07:06 Target Cells Not Reportable 10/23/20 07:06 Tear Drop Cells Not Reportable 10/23/20 07:06 Ovalocytes Not Reportable 10/23/20 07:06 Helmet Cells Not Reportable 10/23/20 07:06 Perez-Porum Bodies Not Reportable 10/23/20 07:06 Sterling Rings Not Reportable 10/23/20 07:06 Albion Cells Not Reportable 10/23/20 07:06 Bite Cells Not Reportable 10/23/20 07:06 Crenated Cell Not Reportable 10/23/20 07:06 Elliptocytes Not Reportable 10/23/20 07:06 Acanthocytes (Spur) Not Reportable 10/23/20 07:06 Rouleaux Not Reportable 10/23/20 07:06 Hemoglobin C Crystals Not Reportable 10/23/20 07:06 Schistocytes Not Reportable 10/23/20 07:06 Malaria parasites Not Reportable 10/23/20 07:06 Calvin Bodies Not Reportable 10/23/20 07:06 Hem Pathologist Commnt No 10/23/20 07:06 D-Dimer 872.83 ng/mlDDU (0-234) H 10/22/20 14:04 Sodium 136 mmol/L (137-145) L 10/27/20 06:49 Potassium 4.9 mmol/L (3.6-5.0) 10/27/20 06:49 Chloride 103.2 mmol/L (98-107) 10/27/20 06:49 Carbon Dioxide 23 mmol/L (22-30) 10/27/20 06:49 Anion Gap 15 mmol/L 10/27/20 06:49 BUN 29 mg/dL (9-20) H 10/27/20 06:49 Creatinine 1.4 mg/dL (0.8-1.3) H 10/27/20 06:49 Estimated GFR > 60 ml/min 10/27/20 06:49 BUN/Creatinine Ratio 21 % 10/27/20 06:49 Glucose 126 mg/dL (75-100) H 10/27/20 06:49 Calcium 8.8 mg/dL (8.4-10.2) 10/27/20 06:49 Total Bilirubin 0.40 mg/dL (0.1-1.2) 10/27/20 06:49 AST 39 units/L (5-40) 10/27/20 06:49 ALT 87 units/L (7-56) H 10/27/20 06:49 Alkaline Phosphatase 56 units/L (35-129) 10/27/20 06:49 Lactate Dehydrogenase 709 units/L (91-180) H 10/22/20 14:04 C-Reactive Protein 17.30 mg/dL (0.00-1.30) H 10/22/20 14:04 NT-Pro-B Natriuret Pep 83.97 pg/mL (0-450) 10/22/20 14:04 Total Protein 6.5 g/dL (6.3-8.2) 10/27/20 06:49 Albumin 3.1 g/dL (3.9-5) L 10/27/20 06:49 Albumin/Globulin Ratio 0.9 % 10/27/20 06:49 Procalcitonin 0.50 ng/mL (<0.15) 10/22/20 14:04 Urine Color Yellow (Yellow) 10/23/20 13:00 Urine Turbidity Clear (Clear) 10/23/20 13:00 Urine pH 6.0 (5.0-7.0) 10/23/20 13:00 Ur Specific Michie 1.015 (1.003-1.030) 10/23/20 13:00 Urine Protein 30 mg/dl mg/dL (Negative) 10/23/20 13:00 Urine Glucose (UA) Neg mg/dL (Negative) 10/23/20 13:00 Urine Ketones Neg mg/dL (Negative) 10/23/20 13:00 Urine Blood Mod (Negative) 10/23/20 13:00 Urine Nitrite Neg (Negative) 10/23/20 13:00 Urine Bilirubin Neg (Negative) 10/23/20 13:00 Urine Urobilinogen 2.0 mg/dL (<2.0) 10/23/20 13:00 Ur Leukocyte Esterase Neg (Negative) 10/23/20 13:00 Urine WBC (Auto) 4.0 /HPF (0.0-6.0) 10/23/20 13:00 Urine RBC (Auto) 2.0 /HPF (0.0-6.0) 10/23/20 13:00 Urine Mucus Few /HPF 10/23/20 13:00 Urine Creatinine 147.6 mg/dL (0.1-20.0) H 10/23/20 13:00 Urine Sodium 34 mmol/L 10/23/20 13:00 Urine Chloride 14.1 mmolL (110-250) L 10/23/20 13:00 Coronavirus (PCR) Positive (Negative) A 10/23/20 Unknown Gregorio/IV: Voiding Method Urinal Active Medications - Current Medications Current Medications: Generic Name Dose Route Start Last Admin Trade Name Freq PRN Reason Stop Dose Admin Acetaminophen 650 mg 10/22/20 14:57 10/22/20 17:21 Acetaminophen 325 Mg Tab PO 650 mg Q4H PRN Administration Pain MILD(1-3)/Fever >100.5/THOMPSON Albuterol 2.5 mg 10/22/20 14:57 Albuterol 2.5 Mg/3 Ml Nebu IH Q4HRT PRN Shortness Of Breath Ascorbic Acid 500 mg 10/22/20 22:00 10/26/20 22:34 Ascorbic Acid 500 Mg Tab PO 500 mg BID VARUN Administration Cholecalciferol 1,000 unit 10/23/20 10:00 10/26/20 11:11 Cholecalciferol (Vit D3) 1000 Unit (25 Mcg) Tab PO 1,000 unit QDAY VARUN Administration Famotidine 10 mg 10/22/20 22:00 10/26/20 22:33 Famotidine 10 Mg Tab PO 10 mg BID VARUN Administration Guaifenesin 200 mg 10/26/20 14:29 10/27/20 06:22 Guaifenesin 100 Mg/5 Ml Oral Liqd PO 200 mg Q4H PRN Administration Cough Heparin Sodium (Porcine) 5,000 unit 10/22/20 22:00 10/26/20 22:34 Heparin 5,000 Unit/1 Ml Vial SUB-Q 5,000 unit Q12HR VARUN Administration Hydromorphone HCl 0.5 mg 10/22/20 14:57 10/25/20 01:14 Hydromorphone 1 Mg/1 Ml Inj IV 0.5 mg Q12H PRN Administration Pain , Severe (7-10) Sodium Chloride 1,000 mls @ 100 mls/hr 10/23/20 11:00 10/23/20 22:00 Nacl 0.9% 1000 Ml IV 100 mls/hr DIRECT VARUN Administration REMDESIVIR 100 mg/ Sodium 250 mls @ 500 mls/hr 10/25/20 21:00 10/26/20 22:33 Chloride IV 10/28/20 21:29 500 mls/hr Q24HR@2100 VARUN Administration Methylprednisolone Sodium Succinate 40 mg 10/22/20 22:00 10/27/20 06:22 Methylprednisolone Sod Succinate 40 Mg/1 Ml Inj IV 40 mg Q8HR VARUN Administration Ondansetron HCl 4 mg 10/22/20 14:57 10/23/20 23:42 Ondansetron 4 Mg/2 Ml Inj IV 4 mg Q8H PRN Administration Nausea And Vomiting Oxycodone/Acetaminophen 1 tab 10/22/20 14:57 10/27/20 02:47 Oxycodone /Acetaminophen 5-325mg Tab PO 1 tab Q12H PRN Administration Pain, Moderate (4-6) Sodium Chloride 10 ml 10/22/20 22:00 10/26/20 22:35 Sodium Chloride 0.9% 10 Ml Flush Syringe IV 10 ml BID VARUN Administration Sodium Chloride 10 ml 10/22/20 14:57 Sodium Chloride 0.9% 10 Ml Flush Syringe IV PRN PRN LINE FLUSH Sodium Chloride 50 ml 10/24/20 14:00 10/26/20 22:33 Sodium Chloride 0.9% 50 Ml Ivpb IV 10/27/20 21:01 50 ml Q24HR@2100 VARUN Administration Zinc Sulfate 220 mg 10/22/20 22:00 10/26/20 22:35 Zinc Sulfate 220 Mg Cap PO 220 mg BID VARUN Administration
[2020-10-27] MEDS: HEPARIN 5,000 UNIT/1 ML VIAL SUB-Q SCH ×2 (12:05→22:25)
[2020-10-27] MEDS: ZINC SULFATE 220 MG CAP PO SCH ×2 (12:05→22:25)
[2020-10-27] MEDS: FAMOTIDINE 10 MG TAB PO SCH ×2 (12:05→22:24)
[2020-10-27] MEDS: ASCORBIC ACID 500 MG TAB PO SCH ×2 (12:05→22:25)
[2020-10-27] MEDS: CHOLECALCIFEROL (VIT D3) 1000 UNIT (25 mcg) TAB PO SCH (12:05)
--- NOTE | 2020-10-27 12:25 | Progress Note ---
Assessment and Plan Cultures: Blood culture no growth so far. COVID PCR: positive A/P: 40-year-old man past medical history obesity #Severe COVID-19 pneumonia: Patient presented with a week of symptoms, chest x- ray with diffuse bilateral infiltrates, admission O2 sats on room air. Inflammatory markers elevated #Acute hypoxemic respiratory failure: Likely secondary to COVID-19 infection. Currently on 10L NC #Obesity #KACIE; improving #Leukocytosis: likely secondary to steroids #Elevated transaminases: likely from COVID Recs: -Steroids for 10 days -Remdesivir 200 mg IV q day x 1 followed by 100 mg IV q day x 4 days, as renal function has improved. D4 of 5 -Obtain q48-72h inflammatory markers - ferritin, Ddimer, CRP, LDH -Completed empiric antibiotics. -Anticoagulation per hospital protocol -Proning as able Thank you for the consult, we will continue to follow. Daja Kaye MD [facility] O: [phone] F: [phone] Subjective Date of service: 10/27/20 Interval history: Afebrile, white count increased to 19. 10 L salter Objective - Exam Narrative Exam: Physical exam deferred to reduce risk of transmission of COVID-19. Please refer to primary team's note. - Constitutional Vitals: Vital Signs Temp Pulse Resp BP Pulse Ox 98.3 F 76 20 135/88 91 10/27/20 05:48 10/27/20 05:48 10/27/20 05:48 10/27/20 05:48 10/27/20 09:19 Temperature -Last 24 Hours Temperature 98.3 F Temperature 98.5 F Temperature 98.5 F - Labs CBC & Chem 7: 10/27/20 06:49 10/27/20 06:49 Labs: Abnormal lab results 10/27/20 10/27/20 Range/Units 06:49 06:49 WBC 19.0 H (4.5-11.0) K/mm3 RBC 5.17 H (3.65-5.03) M/mm3 Hct 47.0 H (35.5-45.6) % Sodium 136 L (137-145) mmol/L BUN 29 H (9-20) mg/dL Creatinine 1.4 H (0.8-1.3) mg/dL Glucose 126 H (75-100) mg/dL ALT 87 H (7-56) units/L Albumin 3.1 L (3.9-5) g/dL
--- NOTE | 2020-10-27 13:45 | Progress Note ---
Assessment and Plan - Patient Problems (1) Acute renal failure Current Visit: Yes Status: Acute Qualifiers: Acute renal failure type: unspecified Qualified Code(s): N17.9 - Acute kidney failure, unspecified Plan to address problem: Likely pre-renal etiology He remains non oliguric at this time. renal function is showing appropriate improvement with IV fluid hydration. renal ultrasound did not show any acute abnormalities. overall renal function remained stable. (2) Hyperkalemia Current Visit: Yes Status: Acute Plan to address problem: Likely in the setting of KACIE. Anticipate that with adequate IVF hydration and increased distal tubule sodium delivery, we should see increase in potassium excretion. Levels improved at this time. (3) Pneumonia due to COVID-19 virus Current Visit: Yes Status: Acute Plan to address problem: Management per primary team,/ID (4) Hypoxia Current Visit: Yes Status: Acute Plan to address problem: management per pulmonary recommendations. Subjective Date of service: 10/27/20 Interval history: no acute issues from renal standpoint. Renal function remained stable. Remains on 10 L of oxygen. Objective - Exam Narrative Exam: patient not directly examined in order to preserve PPE and limit spread of COVID-19. Physical examination from primary team reviewed at this time. - Vital Signs Vital signs: Vital Signs - 12hr 10/27/20 10/27/20 10/27/20 05:48 09:19 11:54 Temperature 98.3 F 97.7 F Pulse Rate 76 77 Respiratory 20 24 Rate Blood Pressure 135/88 148/93 O2 Sat by Pulse 91 91 92 Oximetry - Lab 10/27/20 06:49 10/27/20 06:49 Most recent lab results Calcium 8.8 mg/dL (8.4-10.2) 10/27/20 06:49 Urine Creatinine 147.6 mg/dL (0.1-20.0) H 10/23/20 13:00 Urine Sodium 34 mmol/L 10/23/20 13:00 Medications & Allergies - Medications Allergies/Adverse Reactions: Allergies No Known Allergies Allergy (Verified 10/22/20 15:01) Home Medications: Home Medications Medication Instructions Recorded Confirmed Last Taken Type No Known Home Medications [No 10/25/20 10/25/20 Unknown History Reported Home Medications] Active Medications: Generic Name Dose Route Start Last Admin Trade Name Freq PRN Reason Stop Dose Admin Acetaminophen 650 mg 10/22/20 14:57 10/22/20 17:21 Acetaminophen 325 Mg Tab PO 650 mg Q4H PRN Administration Pain MILD(1-3)/Fever >100.5/THOMPSON Albuterol 2.5 mg 10/22/20 14:57 Albuterol 2.5 Mg/3 Ml Nebu IH Q4HRT PRN Shortness Of Breath Ascorbic Acid 500 mg 10/22/20 22:00 10/27/20 12:05 Ascorbic Acid 500 Mg Tab PO 500 mg BID VARUN Administration Cholecalciferol 1,000 unit 10/23/20 10:00 10/27/20 12:05 Cholecalciferol (Vit D3) 1000 Unit (25 Mcg) Tab PO 1,000 unit QDAY VARUN Administration Famotidine 10 mg 10/22/20 22:00 10/27/20 12:05 Famotidine 10 Mg Tab PO 10 mg BID VARUN Administration Guaifenesin 200 mg 10/26/20 14:29 10/27/20 06:22 Guaifenesin 100 Mg/5 Ml Oral Liqd PO 200 mg Q4H PRN Administration Cough Heparin Sodium (Porcine) 5,000 unit 10/22/20 22:00 10/27/20 12:05 Heparin 5,000 Unit/1 Ml Vial SUB-Q 5,000 unit Q12HR VARUN Administration Hydromorphone HCl 0.5 mg 10/22/20 14:57 10/25/20 01:14 Hydromorphone 1 Mg/1 Ml Inj IV 0.5 mg Q12H PRN Administration Pain , Severe (7-10) Sodium Chloride 1,000 mls @ 100 mls/hr 10/23/20 11:00 10/23/20 22:00 Nacl 0.9% 1000 Ml IV 100 mls/hr DIRECT VARUN Administration REMDESIVIR 100 mg/ Sodium 250 mls @ 500 mls/hr 10/25/20 21:00 10/26/20 22:33 Chloride IV 10/28/20 21:29 500 mls/hr Q24HR@2100 VARUN Administration Methylprednisolone Sodium Succinate 40 mg 10/22/20 22:00 10/27/20 06:22 Methylprednisolone Sod Succinate 40 Mg/1 Ml Inj IV 40 mg Q8HR VARUN Administration Ondansetron HCl 4 mg 10/22/20 14:57 10/23/20 23:42 Ondansetron 4 Mg/2 Ml Inj IV 4 mg Q8H PRN Administration Nausea And Vomiting Oxycodone/Acetaminophen 1 tab 10/22/20 14:57 10/27/20 02:47 Oxycodone /Acetaminophen 5-325mg Tab PO 1 tab Q12H PRN Administration Pain, Moderate (4-6) Sodium Chloride 10 ml 10/22/20 22:00 10/27/20 12:06 Sodium Chloride 0.9% 10 Ml Flush Syringe IV 10 ml BID VARUN Administration Sodium Chloride 10 ml 10/22/20 14:57 Sodium Chloride 0.9% 10 Ml Flush Syringe IV PRN PRN LINE FLUSH Sodium Chloride 50 ml 10/24/20 14:00 10/26/20 22:33 Sodium Chloride 0.9% 50 Ml Ivpb IV 10/27/20 21:01 50 ml Q24HR@2100 VARUN Administration Zinc Sulfate 220 mg 10/22/20 22:00 10/27/20 12:05 Zinc Sulfate 220 Mg Cap PO 220 mg BID VARUN Administration
--- NOTE | 2020-10-27 14:16 | Progress Note ---
Assessment and Plan 40 y/o male with acute respiratory failure, concern for COVID positive state with pneumonia and renal failure 10/27/20: More proning if possible. Won't increase steroid dose as of right now, but if oxygen requirement increases will increase to 125 q8. Guarded prognosis. 10/26/20: Renal function continues to improve but oxygen is the same. Needs to prone more. Continue steroids, may need to consider upping the dose, especially if oxygen requirement increases. Guarded prognosis. 10/25/20: Continue to wean FiO2 as tolerated. Continue steroids. Prone if possible. Renal function improving. Guarded prognosis. 10/24/20: Continue current level of care. Would be mindful of pain management as patient has several meds available and appears to be using all of them. Given his respiratory state, at risk for failure if too many meds provided. Also will not clear as fast given renal failure. Dilaudid is the best choice given his renal insufficiency. Prone if able. 1. AGree with steroids 2. Prone if able 3. Follow up renal recs 4. If covid positive plus renal failure, extremely guarded prognosis. Subjective Date of service: 10/27/20 Interval history: Remains on 10 liters NC. marginal sats. REnal function is improving Objective Vital Signs - 12hr 10/27/20 10/27/20 10/27/20 05:48 09:19 11:54 Temperature 98.3 F 97.7 F Pulse Rate 76 77 Respiratory 20 24 Rate Blood Pressure 135/88 148/93 O2 Sat by Pulse 91 91 92 Oximetry CBC and BMP: 10/27/20 06:49 10/27/20 06:49 ABG, PT/INR, D-dimer: PT/INR, D-dimer D-Dimer 872.83 ng/mlDDU (0-234) H 10/22/20 14:04 Abnormal lab findings: Abnormal Labs 10/22/20 10/22/20 10/22/20 12:16 12:16 14:04 WBC 12.3 H RBC 5.12 H Hgb 15.6 H Hct 47.2 H RDW Seg Neuts % (Manual) 79.0 H Lymphocytes % (Manual) Seg Neutrophils # Man 9.7 H Lymphocytes # (Manual) D-Dimer 872.83 H Sodium 132 L Potassium Carbon Dioxide 19 L BUN 47 H Creatinine 4.2 H Glucose 123 H AST 127 H ALT 113 H Lactate Dehydrogenase C-Reactive Protein Albumin 3.6 L Urine Creatinine Urine Chloride Coronavirus (PCR) 10/22/20 10/23/20 10/23/20 14:04 07:06 07:06 WBC RBC 5.06 H Hgb 15.6 H Hct 46.0 H RDW Seg Neuts % (Manual) 86.0 H Lymphocytes % (Manual) 4.0 L Seg Neutrophils # Man 8.4 H Lymphocytes # (Manual) 0.4 L D-Dimer Sodium 133 L Potassium 5.5 H Carbon Dioxide 21 L BUN 45 H Creatinine 3.2 H Glucose 150 H AST ALT Lactate Dehydrogenase 709 H C-Reactive Protein 17.30 H Albumin Urine Creatinine Urine Chloride Coronavirus (PCR) 10/23/20 10/23/20 10/24/20 13:00 Unknown 04:58 WBC 15.7 H RBC Hgb Hct 46.9 H RDW 15.5 H Seg Neuts % (Manual) Lymphocytes % (Manual) Seg Neutrophils # Man Lymphocytes # (Manual) D-Dimer Sodium Potassium Carbon Dioxide BUN Creatinine Glucose AST ALT Lactate Dehydrogenase C-Reactive Protein Albumin Urine Creatinine 147.6 H Urine Chloride 14.1 L Coronavirus (PCR) Positive A 10/24/20 10/25/20 10/25/20 04:58 08:21 08:21 WBC 17.4 H RBC 5.08 H Hgb Hct 46.1 H RDW Seg Neuts % (Manual) Lymphocytes % (Manual) Seg Neutrophils # Man Lymphocytes # (Manual) D-Dimer Sodium 135 L Potassium 5.9 H Carbon Dioxide 21 L BUN 46 H 38 H Creatinine 2.3 H 1.8 H Glucose 147 H 119 H AST 87 H 51 H ALT 129 H 105 H Lactate Dehydrogenase C-Reactive Protein Albumin 3.5 L 3.2 L Urine Creatinine Urine Chloride Coronavirus (PCR) 10/26/20 10/26/20 10/27/20 06:40 06:40 06:49 WBC 14.5 H RBC 5.05 H Hgb Hct 46.3 H RDW Seg Neuts % (Manual) Lymphocytes % (Manual) Seg Neutrophils # Man Lymphocytes # (Manual) D-Dimer Sodium 136 L Potassium Carbon Dioxide BUN 31 H 29 H Creatinine 1.5 H 1.4 H Glucose 136 H 126 H AST 43 H ALT 90 H 87 H Lactate Dehydrogenase C-Reactive Protein Albumin 3.3 L 3.1 L Urine Creatinine Urine Chloride Coronavirus (PCR) 10/27/20 06:49 WBC 19.0 H RBC 5.17 H Hgb Hct 47.0 H RDW Seg Neuts % (Manual) Lymphocytes % (Manual) Seg Neutrophils # Man Lymphocytes # (Manual) D-Dimer Sodium Potassium Carbon Dioxide BUN Creatinine Glucose AST ALT Lactate Dehydrogenase C-Reactive Protein Albumin Urine Creatinine Urine Chloride Coronavirus (PCR)
[2020-10-27] MEDS: SODIUM CHLORIDE 0.9% 50 ML IVPB IV SCH (22:24)
[2020-10-27] MEDS: REMDESIVIR 100 MG in SODIUM CHLORIDE 0.9% 250ML 250 ML IV SCH (22:24)
[2020-10-28] MEDS: methylPREDNISolone Sod Succinate 40 MG/1 ML INJ IV SCH ×3 (05:28→21:36)
[2020-10-28] MEDS: FAMOTIDINE 10 MG TAB PO SCH ×2 (09:48→21:36)
[2020-10-28] MEDS: ZINC SULFATE 220 MG CAP PO SCH ×2 (09:49→21:36)
[2020-10-28] MEDS: HEPARIN 5,000 UNIT/1 ML VIAL SUB-Q SCH ×2 (09:49→21:48)
[2020-10-28] MEDS: ASCORBIC ACID 500 MG TAB PO SCH ×2 (09:49→21:36)
[2020-10-28] MEDS: CHOLECALCIFEROL (VIT D3) 1000 UNIT (25 mcg) TAB PO SCH (09:49)
--- NOTE | 2020-10-28 12:18 | Progress Note ---
Assessment and Plan Assessment and plan: 40 YO Male with Obesity Hypoventilation Syndrome, Coronavirus Infection diagnosed 1 week ago presents to ED for evaluation. Patient reports "it is hard for me to breathe". Patient states that he has experienced shortness of breath, subjective fever, loss of sense of smell, loss of sense of taste, fatigue, malaise, nausea, multiple episodes of vomiting, diminished oral intake and a subjective weight loss of 15 pounds over the past 1 week. Patient transported to [facility] via private vehicle for further care and evaluation of the aforementioned symptoms. The patient was seen and evaluated in the emergency department. All lab and imaging studies reviewed. Patient was found to have a pulse oximetry of 84% on exertion which is consistent with acute hypoxemic respiratory failure. Chest x-ray revealed bilateral pneumonia. Patient admitted to medical floor and initiated on coronavirus protocol as well as pneumonia protocol. Patient denies chills, chest pain, palpitations, skin rash. Patient knowledges suspected contact with coronavirus positive individuals. No prior admission for review. No medication listed at time of admission reconciliation. 10/23: Patient seen and examined today. We will increase him to high flow due to severe hypoxia. Have consulted pulmonary and also infectious disease. He is started on high-dose steroids. Likely not a candidate for remdesivir due to renal dysfunction. I have encouraged him to prone also discussed with his . Unfortunately he is unvaccinated. His also was affected but he states that hers was mild. Wean oxygen as tolerated. Will defer Actemra to infectious disease team. Renal function showing some slight improvement will give a dose of Kayexalate for the hyperkalemia. Chest x-ray shows bilateral diffuse opacities 10/24 Patient with Covid-19 pneumonia with acute respiratory failure. On Oxygen at 10 l/min. On Remdesivir. KACIE improving. Hyperkalemia worse, Potassium 5.9 today. Kayexalate, Insulin ordered. 10/25/20 Patient with Covid-19 pneumonia with acute respiratory failure. Now on Oxygen at 9 l/min NC. KACIE improving Cr 1.8 today. Hyperkalemia resolved. Potassium 4.9 10/26/20 Patient with Covid-19 pneumonia with acute hypoxemic respiratory failure. KACIE improving. His Cr down to 1.5 today. On Oxygen at 10 l/min. 10/27/20 Patient with Covid-19 pneumonia with acute hypoxemic respiratory failure. Patient also has KACIE which is improving. His Cr down to 1.4 today.Still on Oxygen at 10 l/min. 10/28/20 Patient with Covid-19 pneumonia with acute hypoxemic respiratory failure. Patient also has KACIE which is improving. His Cr down to 1.4 yesterday. His Oxygen is being weaned. He is on 7 l/min today down from 10 l/min yesterday. (1) Acute hypoxemic respiratory failure Current Visit: Yes Status: Acute Plan to address problem: Chest x-ray, supplemental oxygen, pulse oximetry, nebulizer therapy, pulmonary toilet (2) Pneumonia Current Visit: Yes Status: Acute Plan to address problem: Pneumonia protocol: Chest x-ray, CBC, CMP, supplemental oxygen, pulse oximetry, nebulizer therapy, blood culture. (3) Obesity hypoventilation syndrome Current Visit: Yes Status: Acute Plan to address problem: Balanced diet, increase physical activity at discharge, outpatient pulmonary follow-up for sleep study, (4) COVID-19 virus infection Current Visit: Yes Status: Acute Plan to address problem: Coronavirus protocol: IV antibiotic therapy, IV steroid therapy, supplemental oxygen, pulse oximetry, vitamin C therapy, vitamin D therapy, zinc therapy, prone positioning while in bed, prophylactic anticoagulation. (5) Acute kidney injury with vasomotor nephropathy (6) Hyperkalemia (7) DVT prophylaxis Current Visit: Yes Status: Acute Plan to address problem: SCDs bilateral lower extremities while in bed, prophylactic anticoagulation. History Interval history: Less shortness of breath Feels better Hospitalist Physical - Constitutional Vitals: Temp Pulse Resp BP Pulse Ox 97.8 F 76 18 118/68 93 10/28/20 05:40 10/28/20 05:40 10/28/20 05:40 10/28/20 05:40 10/28/20 05:40 General appearance: Present: obese Results - Labs CBC & Chem 7: 10/27/20 06:49 10/27/20 06:49 Labs: Laboratory Last Values WBC 19.0 K/mm3 (4.5-11.0) H 10/27/20 06:49 RBC 5.17 M/mm3 (3.65-5.03) H 10/27/20 06:49 Hgb 15.2 gm/dl (11.8-15.2) 10/27/20 06:49 Hct 47.0 % (35.5-45.6) H 10/27/20 06:49 MCV 91 fl (84-94) 10/27/20 06:49 MCH 30 pg (28-32) 10/27/20 06:49 MCHC 32 % (32-34) 10/27/20 06:49 RDW 14.8 % (13.2-15.2) 10/27/20 06:49 Plt Count 376 K/mm3 (140-440) 10/27/20 06:49 Add Manual Diff Complete 10/23/20 07:06 Total Counted 100 10/23/20 07:06 Seg Neuts % (Manual) 86.0 % (40.0-70.0) H 10/23/20 07:06 Band Neutrophils % 2.0 % 10/23/20 07:06 Lymphocytes % (Manual) 4.0 % (13.4-35.0) L 10/23/20 07:06 Reactive Lymphs % (Man) 1.0 % 10/22/20 12:16 Monocytes % (Manual) 5.0 % (0.0-7.3) 10/23/20 07:06 Metamyelocytes % 1.0 % 10/23/20 07:06 Myelocytes % 2.0 % 10/23/20 07:06 Promyelocytes % 3.0 % 10/22/20 12:16 Nucleated RBC % Not Reportable 10/23/20 07:06 Seg Neutrophils # Man 8.4 K/mm3 (1.8-7.7) H 10/23/20 07:06 Band Neutrophils # 0.2 K/mm3 10/23/20 07:06 Lymphocytes # (Manual) 0.4 K/mm3 (1.2-5.4) L 10/23/20 07:06 Abs React Lymphs (Man) 0.0 K/mm3 10/23/20 07:06 Monocytes # (Manual) 0.5 K/mm3 (0.0-0.8) 10/23/20 07:06 Eosinophils # (Manual) 0.0 K/mm3 (0.0-0.4) 10/23/20 07:06 Basophils # (Manual) 0.0 K/mm3 (0.0-0.1) 10/23/20 07:06 Metamyelocytes # 0.1 K/mm3 10/23/20 07:06 Myelocytes # 0.2 K/mm3 10/23/20 07:06 Promyelocytes # 0.0 K/mm3 10/23/20 07:06 Blast Cells # 0.0 K/mm3 10/23/20 07:06 WBC Morphology Not Reportable 10/23/20 07:06 Hypersegmented Neuts Not Reportable 10/23/20 07:06 Hyposegmented Neuts Not Reportable 10/23/20 07:06 Hypogranular Neuts Not Reportable 10/23/20 07:06 Smudge Cells Not Reportable 10/23/20 07:06 Toxic Granulation Not Reportable 10/23/20 07:06 Toxic Vacuolation Not Reportable 10/23/20 07:06 Dohle Bodies Not Reportable 10/23/20 07:06 Pelger-Huet Anomaly Not Reportable 10/23/20 07:06 Fariba Rods Not Reportable 10/23/20 07:06 Platelet Estimate Consistent w auto 10/23/20 07:06 Clumped Platelets Not Reportable 10/23/20 07:06 Plt Clumps, EDTA Not Reportable 10/23/20 07:06 Large Platelets Not Reportable 10/23/20 07:06 Giant Platelets Not Reportable 10/23/20 07:06 Platelet Satelliting Not Reportable 10/23/20 07:06 Plt Morphology Comment Not Reportable 10/23/20 07:06 RBC Morphology Normal 10/23/20 07:06 Dimorphic RBCs Not Reportable 10/23/20 07:06 Polychromasia Not Reportable 10/23/20 07:06 Hypochromasia Not Reportable 10/23/20 07:06 Poikilocytosis Not Reportable 10/23/20 07:06 Anisocytosis Not Reportable 10/23/20 07:06 Microcytosis Not Reportable 10/23/20 07:06 Macrocytosis Not Reportable 10/23/20 07:06 Spherocytes Not Reportable 10/23/20 07:06 Pappenheimer Bodies Not Reportable 10/23/20 07:06 Sickle Cells Not Reportable 10/23/20 07:06 Target Cells Not Reportable 10/23/20 07:06 Tear Drop Cells Not Reportable 10/23/20 07:06 Ovalocytes Not Reportable 10/23/20 07:06 Helmet Cells Not Reportable 10/23/20 07:06 Perez-Depew Bodies Not Reportable 10/23/20 07:06 [place] Rings Not Reportable 10/23/20 07:06 [place] Cells Not Reportable 10/23/20 07:06 Bite Cells Not Reportable 10/23/20 07:06 Crenated Cell Not Reportable 10/23/20 07:06 Elliptocytes Not Reportable 10/23/20 07:06 Acanthocytes (Spur) Not Reportable 10/23/20 07:06 Rouleaux Not Reportable 10/23/20 07:06 Hemoglobin C Crystals Not Reportable 10/23/20 07:06 Schistocytes Not Reportable 10/23/20 07:06 Malaria parasites Not Reportable 10/23/20 07:06 Calvin Bodies Not Reportable 10/23/20 07:06 Hem Pathologist Commnt No 10/23/20 07:06 D-Dimer 872.83 ng/mlDDU (0-234) H 10/22/20 14:04 Sodium 136 mmol/L (137-145) L 10/27/20 06:49 Potassium 4.9 mmol/L (3.6-5.0) 10/27/20 06:49 Chloride 103.2 mmol/L (98-107) 10/27/20 06:49 Carbon Dioxide 23 mmol/L (22-30) 10/27/20 06:49 Anion Gap 15 mmol/L 10/27/20 06:49 BUN 29 mg/dL (9-20) H 10/27/20 06:49 Creatinine 1.4 mg/dL (0.8-1.3) H 10/27/20 06:49 Estimated GFR > 60 ml/min 10/27/20 06:49 BUN/Creatinine Ratio 21 % 10/27/20 06:49 Glucose 126 mg/dL (75-100) H 10/27/20 06:49 Calcium 8.8 mg/dL (8.4-10.2) 10/27/20 06:49 Total Bilirubin 0.40 mg/dL (0.1-1.2) 10/27/20 06:49 AST 39 units/L (5-40) 10/27/20 06:49 ALT 87 units/L (7-56) H 10/27/20 06:49 Alkaline Phosphatase 56 units/L (35-129) 10/27/20 06:49 Lactate Dehydrogenase 709 units/L (91-180) H 10/22/20 14:04 C-Reactive Protein 17.30 mg/dL (0.00-1.30) H 10/22/20 14:04 NT-Pro-B Natriuret Pep 83.97 pg/mL (0-450) 10/22/20 14:04 Total Protein 6.5 g/dL (6.3-8.2) 10/27/20 06:49 Albumin 3.1 g/dL (3.9-5) L 10/27/20 06:49 Albumin/Globulin Ratio 0.9 % 10/27/20 06:49 Procalcitonin 0.50 ng/mL (<0.15) 10/22/20 14:04 Urine Color Yellow (Yellow) 10/23/20 13:00 Urine Turbidity Clear (Clear) 10/23/20 13:00 Urine pH 6.0 (5.0-7.0) 10/23/20 13:00 Ur Specific Davis 1.015 (1.003-1.030) 10/23/20 13:00 Urine Protein 30 mg/dl mg/dL (Negative) 10/23/20 13:00 Urine Glucose (UA) Neg mg/dL (Negative) 10/23/20 13:00 Urine Ketones Neg mg/dL (Negative) 10/23/20 13:00 Urine Blood Mod (Negative) 10/23/20 13:00 Urine Nitrite Neg (Negative) 10/23/20 13:00 Urine Bilirubin Neg (Negative) 10/23/20 13:00 Urine Urobilinogen 2.0 mg/dL (<2.0) 10/23/20 13:00 Ur Leukocyte Esterase Neg (Negative) 10/23/20 13:00 Urine WBC (Auto) 4.0 /HPF (0.0-6.0) 10/23/20 13:00 Urine RBC (Auto) 2.0 /HPF (0.0-6.0) 10/23/20 13:00 Urine Mucus Few /HPF 10/23/20 13:00 Urine Creatinine 147.6 mg/dL (0.1-20.0) H 10/23/20 13:00 Urine Sodium 34 mmol/L 10/23/20 13:00 Urine Chloride 14.1 mmolL (110-250) L 10/23/20 13:00 Coronavirus (PCR) Positive (Negative) A 10/23/20 Unknown Gregorio/IV: Voiding Method Urinal Active Medications - Current Medications Current Medications: Generic Name Dose Route Start Last Admin Trade Name Freq PRN Reason Stop Dose Admin Acetaminophen 650 mg 10/22/20 14:57 10/22/20 17:21 Acetaminophen 325 Mg Tab PO 650 mg Q4H PRN Administration Pain MILD(1-3)/Fever >100.5/THOMPSON Albuterol 2.5 mg 10/22/20 14:57 Albuterol 2.5 Mg/3 Ml Nebu IH Q4HRT PRN Shortness Of Breath Ascorbic Acid 500 mg 10/22/20 22:00 10/28/20 09:49 Ascorbic Acid 500 Mg Tab PO 500 mg BID VARUN Administration Cholecalciferol 1,000 unit 10/23/20 10:00 10/28/20 09:49 Cholecalciferol (Vit D3) 1000 Unit (25 Mcg) Tab PO 1,000 unit QDAY VARUN Administration Famotidine 10 mg 10/22/20 22:00 10/28/20 09:48 Famotidine 10 Mg Tab PO 10 mg BID VARUN Administration Guaifenesin 200 mg 10/26/20 14:29 10/27/20 06:22 Guaifenesin 100 Mg/5 Ml Oral Liqd PO 200 mg Q4H PRN Administration Cough Heparin Sodium (Porcine) 5,000 unit 10/22/20 22:00 10/28/20 09:49 Heparin 5,000 Unit/1 Ml Vial SUB-Q 5,000 unit Q12HR VARUN Administration Hydromorphone HCl 0.5 mg 10/22/20 14:57 10/25/20 01:14 Hydromorphone 1 Mg/1 Ml Inj IV 0.5 mg Q12H PRN Administration Pain , Severe (7-10) Sodium Chloride 1,000 mls @ 100 mls/hr 10/23/20 11:00 10/23/20 22:00 Nacl 0.9% 1000 Ml IV 100 mls/hr DIRECT VARUN Administration REMDESIVIR 100 mg/ Sodium 250 mls @ 500 mls/hr 10/25/20 21:00 10/27/20 22:24 Chloride IV 10/28/20 21:29 500 mls/hr Q24HR@2100 VARUN Administration Methylprednisolone Sodium Succinate 40 mg 10/22/20 22:00 10/28/20 05:28 Methylprednisolone Sod Succinate 40 Mg/1 Ml Inj IV 40 mg Q8HR VARUN Administration Ondansetron HCl 4 mg 10/22/20 14:57 10/23/20 23:42 Ondansetron 4 Mg/2 Ml Inj IV 4 mg Q8H PRN Administration Nausea And Vomiting Oxycodone/Acetaminophen 1 tab 10/22/20 14:57 10/27/20 02:47 Oxycodone /Acetaminophen 5-325mg Tab PO 1 tab Q12H PRN Administration Pain, Moderate (4-6) Sodium Chloride 10 ml 10/22/20 22:00 10/28/20 09:49 Sodium Chloride 0.9% 10 Ml Flush Syringe IV 10 ml BID VARUN Administration Sodium Chloride 10 ml 10/22/20 14:57 Sodium Chloride 0.9% 10 Ml Flush Syringe IV PRN PRN LINE FLUSH Zinc Sulfate 220 mg 10/22/20 22:00 10/28/20 09:49 Zinc Sulfate 220 Mg Cap PO 220 mg BID VARUN Administration Nutrition/Malnutrition Assess - Dietary Evaluation Nutrition/Malnutrition Findings: Nutrition Notes Start: 10/27/20 13:35 Freq: Status: Active Protocol: Document 10/27/20 13:36 (Rec: 10/27/20 13:42 [id number]) Nutrition Notes Need for Assessment generated from: LOS Initial or Follow up Assessment Current Diagnosis Acute Kidney Injury, Respiratory Failure Other Pertinent Diagnosis COVID-19, pneu, hyperkalemia Current Diet cardiac Labs/Tests Na 136 BUN 29 Cr 1.4 BG 126 Pertinent Medications Zinc D3 Vitamin C Solu Medrol Height 6 ft Weight 125.191 kg Marissa Body Weight (kg) 80.90 BMI 37.4 Weight Status Obese Subjective/Other Information Screen for LOS. Per chart, pt eating an average of 50% of meals in past 60 hours. Burn Absent Trauma Absent Current % PO Poor (25-49%) Minimum of two criteria No #1 Nutrition Diagnosis Inadequate oral intake Etiology unknown As Evidenced by Signs and Symptoms pt eating an average of 50% of meals Is patient on ventilator? No Is Patient Ambulatory and/or Out of Bed Yes REE-([place] or-ambulatory/OOB) [ 2872.883 NUTR.[id number]] Kcal/Kg value to use for calculation 16 Approximate Energy Requirements Using 2003 kcal/Kg Calculation Used for Recommendations Kcal/kg Additional Notes Protein: (0.8-1g/kg AdjBW: 103kg) 82-103g Fluid: 1 ml/kcal or per MD Nutrition Intervention Change Diet Order: Continue Add Supplement/Snack (indicate name/kcal Ensure Enlive BID /protein ) Provides kCal: 700 Provides Protein (gm) 40 Goal #1 Meet at least 75% of protein and kcal needs via PO and ONS Anticipated Discharge Needs: Cardiac Follow-Up By: 10/31/20 Additional Comments F/u: intakes and ONS tolerance
--- NOTE | 2020-10-28 12:48 | Progress Note ---
Assessment and Plan 40 y/o male with acute respiratory failure, concern for COVID positive state with pneumonia and renal failure 10/28/20: Hold on increase in steroid. Prone. prognosis still guarded but promising. 10/27/20: More proning if possible. Won't increase steroid dose as of right now, but if oxygen requirement increases will increase to 125 q8. Guarded prognosis. 10/26/20: Renal function continues to improve but oxygen is the same. Needs to prone more. Continue steroids, may need to consider upping the dose, especially if oxygen requirement increases. Guarded prognosis. 10/25/20: Continue to wean FiO2 as tolerated. Continue steroids. Prone if possible. Renal function improving. Guarded prognosis. 10/24/20: Continue current level of care. Would be mindful of pain management as patient has several meds available and appears to be using all of them. Given his respiratory state, at risk for failure if too many meds provided. Also will not clear as fast given renal failure. Dilaudid is the best choice given his renal insufficiency. Prone if able. 1. AGree with steroids 2. Prone if able 3. Follow up renal recs 4. If covid positive plus renal failure, extremely guarded prognosis. Subjective Date of service: 10/28/20 Interval history: Down to 7 liters with good sats. Objective Vital Signs - 12hr 10/28/20 10/28/20 10/28/20 03:00 05:40 12:16 Temperature 97.8 F 98.1 F Pulse Rate 76 77 Respiratory 18 22 Rate Blood Pressure 118/68 Blood Pressure 143/88 [Left] O2 Sat by Pulse 93 93 94 Oximetry CBC and BMP: 10/27/20 06:49 10/27/20 06:49 ABG, PT/INR, D-dimer: PT/INR, D-dimer D-Dimer 872.83 ng/mlDDU (0-234) H 10/22/20 14:04 Abnormal lab findings: Abnormal Labs 10/22/20 10/22/20 10/22/20 12:16 12:16 14:04 WBC 12.3 H RBC 5.12 H Hgb 15.6 H Hct 47.2 H RDW Seg Neuts % (Manual) 79.0 H Lymphocytes % (Manual) Seg Neutrophils # Man 9.7 H Lymphocytes # (Manual) D-Dimer 872.83 H Sodium 132 L Potassium Carbon Dioxide 19 L BUN 47 H Creatinine 4.2 H Glucose 123 H AST 127 H ALT 113 H Lactate Dehydrogenase C-Reactive Protein Albumin 3.6 L Urine Creatinine Urine Chloride Coronavirus (PCR) 10/22/20 10/23/20 10/23/20 14:04 07:06 07:06 WBC RBC 5.06 H Hgb 15.6 H Hct 46.0 H RDW Seg Neuts % (Manual) 86.0 H Lymphocytes % (Manual) 4.0 L Seg Neutrophils # Man 8.4 H Lymphocytes # (Manual) 0.4 L D-Dimer Sodium 133 L Potassium 5.5 H Carbon Dioxide 21 L BUN 45 H Creatinine 3.2 H Glucose 150 H AST ALT Lactate Dehydrogenase 709 H C-Reactive Protein 17.30 H Albumin Urine Creatinine Urine Chloride Coronavirus (PCR) 10/23/20 10/23/20 10/24/20 13:00 Unknown 04:58 WBC 15.7 H RBC Hgb Hct 46.9 H RDW 15.5 H Seg Neuts % (Manual) Lymphocytes % (Manual) Seg Neutrophils # Man Lymphocytes # (Manual) D-Dimer Sodium Potassium Carbon Dioxide BUN Creatinine Glucose AST ALT Lactate Dehydrogenase C-Reactive Protein Albumin Urine Creatinine 147.6 H Urine Chloride 14.1 L Coronavirus (PCR) Positive A 10/24/20 10/25/20 10/25/20 04:58 08:21 08:21 WBC 17.4 H RBC 5.08 H Hgb Hct 46.1 H RDW Seg Neuts % (Manual) Lymphocytes % (Manual) Seg Neutrophils # Man Lymphocytes # (Manual) D-Dimer Sodium 135 L Potassium 5.9 H Carbon Dioxide 21 L BUN 46 H 38 H Creatinine 2.3 H 1.8 H Glucose 147 H 119 H AST 87 H 51 H ALT 129 H 105 H Lactate Dehydrogenase C-Reactive Protein Albumin 3.5 L 3.2 L Urine Creatinine Urine Chloride Coronavirus (PCR) 10/26/20 10/26/20 10/27/20 06:40 06:40 06:49 WBC 14.5 H RBC 5.05 H Hgb Hct 46.3 H RDW Seg Neuts % (Manual) Lymphocytes % (Manual) Seg Neutrophils # Man Lymphocytes # (Manual) D-Dimer Sodium 136 L Potassium Carbon Dioxide BUN 31 H 29 H Creatinine 1.5 H 1.4 H Glucose 136 H 126 H AST 43 H ALT 90 H 87 H Lactate Dehydrogenase C-Reactive Protein Albumin 3.3 L 3.1 L Urine Creatinine Urine Chloride Coronavirus (PCR) 10/27/20 06:49 WBC 19.0 H RBC 5.17 H Hgb Hct 47.0 H RDW Seg Neuts % (Manual) Lymphocytes % (Manual) Seg Neutrophils # Man Lymphocytes # (Manual) D-Dimer Sodium Potassium Carbon Dioxide BUN Creatinine Glucose AST ALT Lactate Dehydrogenase C-Reactive Protein Albumin Urine Creatinine Urine Chloride Coronavirus (PCR)
--- NOTE | 2020-10-28 16:30 | Progress Note ---
Assessment and Plan - Patient Problems (1) Acute kidney injury Current Visit: Yes Status: Acute Plan to address problem: Prerenal azotemia/COVID associated nephropathy. Kidney function improving. Continue gentle volume repletion and follow-up electrolytes and renal function (2) Hyperkalemia Current Visit: Yes Status: Acute Plan to address problem: Potassium improved with treatment. Follow-up levels (3) Leukocytosis Current Visit: Yes Status: Acute Plan to address problem: Probably steroid-induced. Follow-up white blood cell count (4) Pneumonia due to COVID-19 virus Current Visit: Yes Status: Acute Plan to address problem: Continue treatment by primary attending. 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 I reviewed multidisciplinary notes and discussed with staff and physicians as needed. Objective - Exam Narrative Exam: Patient was not examined at the bedside today due to personal protective equipme nt preservation during the COVID-19 pandemic - Vital Signs Vital signs: Vital Signs - 12hr 10/28/20 10/28/20 10/28/20 05:40 10:00 12:16 Temperature 97.8 F 98.1 F Pulse Rate 76 77 Respiratory 18 22 Rate Blood Pressure 118/68 Blood Pressure 143/88 [Left] O2 Sat by Pulse 93 91 94 Oximetry 10/28/20 14:55 Temperature Pulse Rate Respiratory Rate Blood Pressure Blood Pressure [Left] O2 Sat by Pulse 92 Oximetry - Lab 10/27/20 06:49 10/27/20 06:49 Most recent lab results Calcium 8.8 mg/dL (8.4-10.2) 10/27/20 06:49 Urine Creatinine 147.6 mg/dL (0.1-20.0) H 10/23/20 13:00 Urine Sodium 34 mmol/L 10/23/20 13:00 Medications & Allergies - Medications Allergies/Adverse Reactions: Allergies No Known Allergies Allergy (Verified 10/22/20 15:01) Home Medications: Home Medications Medication Instructions Recorded Confirmed Last Taken Type No Known Home Medications [No 10/25/20 10/25/20 Unknown History Reported Home Medications] Active Medications: Generic Name Dose Route Start Last Admin Trade Name Gay PRN Reason Stop Dose Admin Acetaminophen 650 mg 10/22/20 14:57 10/22/20 17:21 Acetaminophen 325 Mg Tab PO 650 mg Q4H PRN Administration Pain MILD(1-3)/Fever >100.5/THOMPSON Albuterol 2.5 mg 10/22/20 14:57 Albuterol 2.5 Mg/3 Ml Nebu IH Q4HRT PRN Shortness Of Breath Ascorbic Acid 500 mg 10/22/20 22:00 10/28/20 09:49 Ascorbic Acid 500 Mg Tab PO 500 mg BID VARUN Administration Cholecalciferol 1,000 unit 10/23/20 10:00 10/28/20 09:49 Cholecalciferol (Vit D3) 1000 Unit (25 Mcg) Tab PO 1,000 unit QDAY VARUN Administration Famotidine 10 mg 10/22/20 22:00 10/28/20 09:48 Famotidine 10 Mg Tab PO 10 mg BID VARUN Administration Guaifenesin 200 mg 10/26/20 14:29 10/27/20 06:22 Guaifenesin 100 Mg/5 Ml Oral Liqd PO 200 mg Q4H PRN Administration Cough Heparin Sodium (Porcine) 5,000 unit 10/22/20 22:00 10/28/20 09:49 Heparin 5,000 Unit/1 Ml Vial SUB-Q 5,000 unit Q12HR VARUN Administration Hydromorphone HCl 0.5 mg 10/22/20 14:57 10/25/20 01:14 Hydromorphone 1 Mg/1 Ml Inj IV 0.5 mg Q12H PRN Administration Pain , Severe (7-10) Sodium Chloride 1,000 mls @ 100 mls/hr 10/23/20 11:00 10/23/20 22:00 Nacl 0.9% 1000 Ml IV 100 mls/hr DIRECT VARUN Administration REMDESIVIR 100 mg/ Sodium 250 mls @ 500 mls/hr 10/25/20 21:00 10/27/20 22:24 Chloride IV 10/28/20 21:29 500 mls/hr Q24HR@2100 VARUN Administration Methylprednisolone Sodium Succinate 40 mg 10/22/20 22:00 10/28/20 14:04 Methylprednisolone Sod Succinate 40 Mg/1 Ml Inj IV 40 mg Q8HR VARUN Administration Ondansetron HCl 4 mg 10/22/20 14:57 10/23/20 23:42 Ondansetron 4 Mg/2 Ml Inj IV 4 mg Q8H PRN Administration Nausea And Vomiting Oxycodone/Acetaminophen 1 tab 10/22/20 14:57 10/27/20 02:47 Oxycodone /Acetaminophen 5-325mg Tab PO 1 tab Q12H PRN Administration Pain, Moderate (4-6) Sodium Chloride 10 ml 10/22/20 22:00 10/28/20 09:49 Sodium Chloride 0.9% 10 Ml Flush Syringe IV 10 ml BID VARUN Administration Sodium Chloride 10 ml 10/22/20 14:57 Sodium Chloride 0.9% 10 Ml Flush Syringe IV PRN PRN LINE FLUSH Zinc Sulfate 220 mg 10/22/20 22:00 10/28/20 09:49 Zinc Sulfate 220 Mg Cap PO 220 mg BID VARUN Administration
[2020-10-28] MEDS: REMDESIVIR 100 MG in SODIUM CHLORIDE 0.9% 250ML 250 ML IV SCH (21:38)
[2020-10-29] MEDS: methylPREDNISolone Sod Succinate 40 MG/1 ML INJ IV SCH ×3 (06:12→21:20)
[2020-10-29 06:39] LABS: Hematocrit 48.6 % (35.5-45.6); Hemoglobin 16.1 gm/dl (11.8-15.2); Mean Corpuscular HGB Conc 33 % (32-34); Mean Corpuscular Volume 92 fl (84-94); Platelet Count 396 K/mm3 (140-440); Red Blood Count 5.29 M/mm3 (3.65-5.03); Red Cell Distribution Width 14.7 % (13.2-15.2)
[2020-10-29 06:41] LABS: BUN/Creatinine Ratio 25; Blood Urea Nitrogen 28 mg/dL (9-20); Calcium 9.4 mg/dL (8.4-10.2); Hemolysis Index 24
[2020-10-29] MEDS: CHOLECALCIFEROL (VIT D3) 1000 UNIT (25 mcg) TAB PO SCH (09:44)
[2020-10-29] MEDS: FAMOTIDINE 10 MG TAB PO SCH ×2 (09:44→21:20)
[2020-10-29] MEDS: HEPARIN 5,000 UNIT/1 ML VIAL SUB-Q SCH ×2 (09:44→21:20)
[2020-10-29] MEDS: ASCORBIC ACID 500 MG TAB PO SCH ×2 (09:44→21:20)
[2020-10-29] MEDS: ZINC SULFATE 220 MG CAP PO SCH ×2 (09:44→21:20)
--- NOTE | 2020-10-29 09:59 | Progress Note ---
Assessment and Plan Assessment and plan: 40 YO Male with Obesity Hypoventilation Syndrome, Coronavirus Infection diagnosed 1 week ago presents to ED for evaluation. Patient reports "it is hard for me to breathe". Patient states that he has experienced shortness of breath, subjective fever, loss of sense of smell, loss of sense of taste, fatigue, malaise, nausea, multiple episodes of vomiting, diminished oral intake and a subjective weight loss of 15 pounds over the past 1 week. Patient transported to [facility] via private vehicle for further care and evaluation of the aforementioned symptoms. The patient was seen and evaluated in the emergency department. All lab and imaging studies reviewed. Patient was found to have a pulse oximetry of 84% on exertion which is consistent with acute hypoxemic respiratory failure. Chest x-ray revealed bilateral pneumonia. Patient admitted to medical floor and initiated on coronavirus protocol as well as pneumonia protocol. Patient denies chills, chest pain, palpitations, skin rash. Patient knowledges suspected contact with coronavirus positive individuals. No prior admission for review. No medication listed at time of admission reconciliation. 10/23: Patient seen and examined today. We will increase him to high flow due to severe hypoxia. Have consulted pulmonary and also infectious disease. He is started on high-dose steroids. Likely not a candidate for remdesivir due to renal dysfunction. I have encouraged him to prone also discussed with his . Unfortunately he is unvaccinated. His also was affected but he states that hers was mild. Wean oxygen as tolerated. Will defer Actemra to infectious disease team. Renal function showing some slight improvement will give a dose of Kayexalate for the hyperkalemia. Chest x-ray shows bilateral diffuse opacities 10/24 Patient with Covid-19 pneumonia with acute respiratory failure. On Oxygen at 10 l/min. On Remdesivir. KACIE improving. Hyperkalemia worse, Potassium 5.9 today. Kayexalate, Insulin ordered. 10/25/20 Patient with Covid-19 pneumonia with acute respiratory failure. Now on Oxygen at 9 l/min NC. KACIE improving Cr 1.8 today. Hyperkalemia resolved. Potassium 4.9 10/26/20 Patient with Covid-19 pneumonia with acute hypoxemic respiratory failure. KACIE improving. His Cr down to 1.5 today. On Oxygen at 10 l/min. 10/27/20 Patient with Covid-19 pneumonia with acute hypoxemic respiratory failure. Patient also has KACIE which is improving. His Cr down to 1.4 today.Still on Oxygen at 10 l/min. 10/28/20 Patient with Covid-19 pneumonia with acute hypoxemic respiratory failure. Patient also has KACIE which is improving. His Cr down to 1.4 yesterday. His Oxygen is being weaned. He is on 7 l/min today down from 10 l/min yesterday. 10/29/20 Patient with Covid-19 pneumonia with acute hypoxemic respiratory failure. Patient also has KACIE which is now resolved, Cr 1.1 today. He is on Oxygen 8 l/min (1) Acute hypoxemic respiratory failure Current Visit: Yes Status: Acute Plan to address problem: Chest x-ray, supplemental oxygen, pulse oximetry, nebulizer therapy, pulmonary toilet (2) Pneumonia Current Visit: Yes Status: Acute Plan to address problem: Pneumonia protocol: Chest x-ray, CBC, CMP, supplemental oxygen, pulse oximetry, nebulizer therapy, blood culture. (3) Obesity hypoventilation syndrome Current Visit: Yes Status: Acute Plan to address problem: Balanced diet, increase physical activity at discharge, outpatient pulmonary follow-up for sleep study, (4) COVID-19 virus infection Current Visit: Yes Status: Acute Plan to address problem: Coronavirus protocol: IV antibiotic therapy, IV steroid therapy, supplemental ox ygen, pulse oximetry, vitamin C therapy, vitamin D therapy, zinc therapy, prone positioning while in bed, prophylactic anticoagulation. (5) Acute kidney injury with vasomotor nephropathy (6) Hyperkalemia (7) DVT prophylaxis Current Visit: Yes Status: Acute Plan to address problem: SCDs bilateral lower extremities while in bed, prophylactic anticoagulation. History Interval history: Less shortness of breath Feels better Hospitalist Physical - Physical exam Narrative exam: Gen:Not in acute distress, lying in bed,obese HEENT:Normocephalic, atraumatic Neck:supple, no JVD Lungs: Bilateral crackles, no wheeze Heart:S1 and S2 reg, no murmurs, rubs or gallop Abd:Soft, non tender, non distended, normal bowel sounds Ext:No edema. no clubbing, no cyanosis Neuro:Awake, alert, oriented X 3, moves all ext - Constitutional Vitals: Temp Pulse Resp BP Pulse Ox 97.5 F L 76 18 138/82 93 10/29/20 05:41 10/29/20 05:41 10/29/20 05:41 10/29/20 05:41 10/29/20 09:37 General appearance: Present: obese Results - Labs CBC & Chem 7: 10/29/20 05:12 10/29/20 05:12 Labs: Laboratory Last Values WBC 27.6 K/mm3 (4.5-11.0) H 10/29/20 05:12 RBC 5.29 M/mm3 (3.65-5.03) H 10/29/20 05:12 Hgb 16.1 gm/dl (11.8-15.2) H 10/29/20 05:12 Hct 48.6 % (35.5-45.6) H 10/29/20 05:12 MCV 92 fl (84-94) 10/29/20 05:12 MCH 30 pg (28-32) 10/29/20 05:12 MCHC 33 % (32-34) 10/29/20 05:12 RDW 14.7 % (13.2-15.2) 10/29/20 05:12 Plt Count 396 K/mm3 (140-440) 10/29/20 05:12 Add Manual Diff Complete 10/23/20 07:06 Total Counted 100 10/23/20 07:06 Seg Neuts % (Manual) 86.0 % (40.0-70.0) H 10/23/20 07:06 Band Neutrophils % 2.0 % 10/23/20 07:06 Lymphocytes % (Manual) 4.0 % (13.4-35.0) L 10/23/20 07:06 Reactive Lymphs % (Man) 1.0 % 10/22/20 12:16 Monocytes % (Manual) 5.0 % (0.0-7.3) 10/23/20 07:06 Metamyelocytes % 1.0 % 10/23/20 07:06 Myelocytes % 2.0 % 10/23/20 07:06 Promyelocytes % 3.0 % 10/22/20 12:16 Nucleated RBC % Not Reportable 10/23/20 07:06 Seg Neutrophils # Man 8.4 K/mm3 (1.8-7.7) H 10/23/20 07:06 Band Neutrophils # 0.2 K/mm3 10/23/20 07:06 Lymphocytes # (Manual) 0.4 K/mm3 (1.2-5.4) L 10/23/20 07:06 Abs React Lymphs (Man) 0.0 K/mm3 10/23/20 07:06 Monocytes # (Manual) 0.5 K/mm3 (0.0-0.8) 10/23/20 07:06 Eosinophils # (Manual) 0.0 K/mm3 (0.0-0.4) 10/23/20 07:06 Basophils # (Manual) 0.0 K/mm3 (0.0-0.1) 10/23/20 07:06 Metamyelocytes # 0.1 K/mm3 10/23/20 07:06 Myelocytes # 0.2 K/mm3 10/23/20 07:06 Promyelocytes # 0.0 K/mm3 10/23/20 07:06 Blast Cells # 0.0 K/mm3 10/23/20 07:06 WBC Morphology Not Reportable 10/23/20 07:06 Hypersegmented Neuts Not Reportable 10/23/20 07:06 Hyposegmented Neuts Not Reportable 10/23/20 07:06 Hypogranular Neuts Not Reportable 10/23/20 07:06 Smudge Cells Not Reportable 10/23/20 07:06 Toxic Granulation Not Reportable 10/23/20 07:06 Toxic Vacuolation Not Reportable 10/23/20 07:06 Dohle Bodies Not Reportable 10/23/20 07:06 Pelger-Huet Anomaly Not Reportable 10/23/20 07:06 Fariba Rods Not Reportable 10/23/20 07:06 Platelet Estimate Consistent w auto 10/23/20 07:06 Clumped Platelets Not Reportable 10/23/20 07:06 Plt Clumps, EDTA Not Reportable 10/23/20 07:06 Large Platelets Not Reportable 10/23/20 07:06 Giant Platelets Not Reportable 10/23/20 07:06 Platelet Satelliting Not Reportable 10/23/20 07:06 Plt Morphology Comment Not Reportable 10/23/20 07:06 RBC Morphology Normal 10/23/20 07:06 Dimorphic RBCs Not Reportable 10/23/20 07:06 Polychromasia Not Reportable 10/23/20 07:06 Hypochromasia Not Reportable 10/23/20 07:06 Poikilocytosis Not Reportable 10/23/20 07:06 Anisocytosis Not Reportable 10/23/20 07:06 Microcytosis Not Reportable 10/23/20 07:06 Macrocytosis Not Reportable 10/23/20 07:06 Spherocytes Not Reportable 10/23/20 07:06 Pappenheimer Bodies Not Reportable 10/23/20 07:06 Sickle Cells Not Reportable 10/23/20 07:06 Target Cells Not Reportable 10/23/20 07:06 Tear Drop Cells Not Reportable 10/23/20 07:06 Ovalocytes Not Reportable 10/23/20 07:06 Helmet Cells Not Reportable 10/23/20 07:06 Perez-Millport Bodies Not Reportable 10/23/20 07:06 Arena Rings Not Reportable 10/23/20 07:06 [place] Cells Not Reportable 10/23/20 07:06 Bite Cells Not Reportable 10/23/20 07:06 Crenated Cell Not Reportable 10/23/20 07:06 Elliptocytes Not Reportable 10/23/20 07:06 Acanthocytes (Spur) Not Reportable 10/23/20 07:06 Rouleaux Not Reportable 10/23/20 07:06 Hemoglobin C Crystals Not Reportable 10/23/20 07:06 Schistocytes Not Reportable 10/23/20 07:06 Malaria parasites Not Reportable 10/23/20 07:06 Calvin Bodies Not Reportable 10/23/20 07:06 Hem Pathologist Commnt No 10/23/20 07:06 D-Dimer 872.83 ng/mlDDU (0-234) H 10/22/20 14:04 Sodium 138 mmol/L (137-145) 10/29/20 05:12 Potassium 4.9 mmol/L (3.6-5.0) 10/29/20 05:12 Chloride 102.5 mmol/L (98-107) 10/29/20 05:12 Carbon Dioxide 26 mmol/L (22-30) 10/29/20 05:12 Anion Gap 14 mmol/L 10/29/20 05:12 BUN 28 mg/dL (9-20) H 10/29/20 05:12 Creatinine 1.1 mg/dL (0.8-1.3) 10/29/20 05:12 Estimated GFR > 60 ml/min 10/29/20 05:12 BUN/Creatinine Ratio 25 % 10/29/20 05:12 Glucose 134 mg/dL (75-100) H 10/29/20 05:12 Calcium 9.4 mg/dL (8.4-10.2) 10/29/20 05:12 Total Bilirubin 0.40 mg/dL (0.1-1.2) 10/27/20 06:49 AST 39 units/L (5-40) 10/27/20 06:49 ALT 87 units/L (7-56) H 10/27/20 06:49 Alkaline Phosphatase 56 units/L (35-129) 10/27/20 06:49 Lactate Dehydrogenase 709 units/L (91-180) H 10/22/20 14:04 C-Reactive Protein 17.30 mg/dL (0.00-1.30) H 10/22/20 14:04 NT-Pro-B Natriuret Pep 83.97 pg/mL (0-450) 10/22/20 14:04 Total Protein 6.5 g/dL (6.3-8.2) 10/27/20 06:49 Albumin 3.1 g/dL (3.9-5) L 10/27/20 06:49 Albumin/Globulin Ratio 0.9 % 10/27/20 06:49 Procalcitonin 0.50 ng/mL (<0.15) 10/22/20 14:04 Urine Color Yellow (Yellow) 10/23/20 13:00 Urine Turbidity Clear (Clear) 10/23/20 13:00 Urine pH 6.0 (5.0-7.0) 10/23/20 13:00 Ur Specific [place] 1.015 (1.003-1.030) 10/23/20 13:00 Urine Protein 30 mg/dl mg/dL (Negative) 10/23/20 13:00 Urine Glucose (UA) Neg mg/dL (Negative) 10/23/20 13:00 Urine Ketones Neg mg/dL (Negative) 10/23/20 13:00 Urine Blood Mod (Negative) 10/23/20 13:00 Urine Nitrite Neg (Negative) 10/23/20 13:00 Urine Bilirubin Neg (Negative) 10/23/20 13:00 Urine Urobilinogen 2.0 mg/dL (<2.0) 10/23/20 13:00 Ur Leukocyte Esterase Neg (Negative) 10/23/20 13:00 Urine WBC (Auto) 4.0 /HPF (0.0-6.0) 10/23/20 13:00 Urine RBC (Auto) 2.0 /HPF (0.0-6.0) 10/23/20 13:00 Urine Mucus Few /HPF 10/23/20 13:00 Urine Creatinine 147.6 mg/dL (0.1-20.0) H 10/23/20 13:00 Urine Sodium 34 mmol/L 10/23/20 13:00 Urine Chloride 14.1 mmolL (110-250) L 10/23/20 13:00 Coronavirus (PCR) Positive (Negative) A 10/23/20 Unknown Gregorio/IV: Voiding Method Urinal Active Medications - Current Medications Current Medications: Generic Name Dose Route Start Last Admin Trade Name Freq PRN Reason Stop Dose Admin Acetaminophen 650 mg 10/22/20 14:57 10/22/20 17:21 Acetaminophen 325 Mg Tab PO 650 mg Q4H PRN Administration Pain MILD(1-3)/Fever >100.5/THOMPSON Albuterol 2.5 mg 10/22/20 14:57 Albuterol 2.5 Mg/3 Ml Nebu IH Q4HRT PRN Shortness Of Breath Ascorbic Acid 500 mg 10/22/20 22:00 10/29/20 09:44 Ascorbic Acid 500 Mg Tab PO 500 mg BID VARUN Administration Cholecalciferol 1,000 unit 10/23/20 10:00 10/29/20 09:44 Cholecalciferol (Vit D3) 1000 Unit (25 Mcg) Tab PO 1,000 unit QDAY VARUN Administration Famotidine 10 mg 10/22/20 22:00 10/29/20 09:44 Famotidine 10 Mg Tab PO 10 mg BID VARUN Administration Guaifenesin 200 mg 10/26/20 14:29 10/27/20 06:22 Guaifenesin 100 Mg/5 Ml Oral Liqd PO 200 mg Q4H PRN Administration Cough Heparin Sodium (Porcine) 5,000 unit 10/22/20 22:00 10/29/20 09:44 Heparin 5,000 Unit/1 Ml Vial SUB-Q 5,000 unit Q12HR VARUN Administration Hydromorphone HCl 0.5 mg 10/22/20 14:57 10/25/20 01:14 Hydromorphone 1 Mg/1 Ml Inj IV 0.5 mg Q12H PRN Administration Pain , Severe (7-10) Sodium Chloride 1,000 mls @ 100 mls/hr 10/23/20 11:00 10/23/20 22:00 Nacl 0.9% 1000 Ml IV 100 mls/hr DIRECT VARUN Administration Methylprednisolone Sodium Succinate 40 mg 10/22/20 22:00 10/29/20 06:12 Methylprednisolone Sod Succinate 40 Mg/1 Ml Inj IV 40 mg Q8HR VARUN Administration Ondansetron HCl 4 mg 10/22/20 14:57 10/23/20 23:42 Ondansetron 4 Mg/2 Ml Inj IV 4 mg Q8H PRN Administration Nausea And Vomiting Oxycodone/Acetaminophen 1 tab 10/22/20 14:57 10/27/20 02:47 Oxycodone /Acetaminophen 5-325mg Tab PO 1 tab Q12H PRN Administration Pain, Moderate (4-6) Sodium Chloride 10 ml 10/22/20 22:00 10/29/20 09:44 Sodium Chloride 0.9% 10 Ml Flush Syringe IV 10 ml BID VARUN Administration Sodium Chloride 10 ml 10/22/20 14:57 Sodium Chloride 0.9% 10 Ml Flush Syringe IV PRN PRN LINE FLUSH Zinc Sulfate 220 mg 10/22/20 22:00 10/29/20 09:44 Zinc Sulfate 220 Mg Cap PO 220 mg BID VARUN Administration Nutrition/Malnutrition Assess - Dietary Evaluation Nutrition/Malnutrition Findings: Nutrition Notes Start: 10/27/20 13:35 Freq: Status: Active Protocol: Document 10/27/20 13:36 UDAY (Rec: 10/27/20 13:42 UDAY [id number]) Nutrition Notes Need for Assessment generated from: LOS Initial or Follow up Assessment Current Diagnosis Acute Kidney Injury, Respiratory Failure Other Pertinent Diagnosis COVID-19, pneu, hyperkalemia Current Diet cardiac Labs/Tests Na 136 BUN 29 Cr 1.4 BG 126 Pertinent Medications Zinc D3 Vitamin C Solu Medrol Height 6 ft Weight 125.191 kg [place] Body Weight (kg) 80.90 BMI 37.4 Weight Status Obese Subjective/Other Information Screen for LOS. Per chart, pt eating an average of 50% of meals in past 60 hours. Burn Absent Trauma Absent Current % PO Poor (25-49%) Minimum of two criteria No #1 Nutrition Diagnosis Inadequate oral intake Etiology unknown As Evidenced by Signs and Symptoms pt eating an average of 50% of meals Is patient on ventilator? No Is Patient Ambulatory and/or Out of Bed Yes REE-([facility]-ambulatory/OOB) [ 2872.883 NUTR.[id number]] Kcal/Kg value to use for calculation 16 Approximate Energy Requirements Using 2002 kcal/Kg Calculation Used for Recommendations Kcal/kg Additional Notes Protein: (0.8-1g/kg AdjBW: 103kg) 82-103g Fluid: 1 ml/kcal or per MD Nutrition Intervention Change Diet Order: Continue Add Supplement/Snack (indicate name/kcal Ensure Enlive BID /protein ) Provides kCal: 700 Provides Protein (gm) 40 Goal #1 Meet at least 75% of protein and kcal needs via PO and ONS Anticipated Discharge Needs: Cardiac Follow-Up By: 10/31/20 Additional Comments F/u: intakes and ONS tolerance
--- NOTE | 2020-10-29 10:23 | Progress Note ---
Assessment and Plan 40 y/o male with acute respiratory failure, concern for COVID positive state with pneumonia and renal failure 10/29/20: Prone if possible and for as long as possible. Continue steroids at current dosing. 10/28/20: Hold on increase in steroid. Prone. prognosis still guarded but promising. 10/27/20: More proning if possible. Won't increase steroid dose as of right now, but if oxygen requirement increases will increase to 125 q8. Guarded prognosis. 10/26/20: Renal function continues to improve but oxygen is the same. Needs to prone more. Continue steroids, may need to consider upping the dose, especially if oxygen requirement increases. Guarded prognosis. 10/25/20: Continue to wean FiO2 as tolerated. Continue steroids. Prone if possible. Renal function improving. Guarded prognosis. 10/24/20: Continue current level of care. Would be mindful of pain management as patient has several meds available and appears to be using all of them. Given his respiratory state, at risk for failure if too many meds provided. Also will not clear as fast given renal failure. Dilaudid is the best choice given his renal insufficiency. Prone if able. 1. AGree with steroids 2. Prone if able 3. Follow up renal recs 4. If covid positive plus renal failure, extremely guarded prognosis. Subjective Date of service: 10/29/20 Principal diagnosis: Acute kidney injury, hyperkalemia, COVID-19 positive test (U07.1, COVID-1 Interval history: Still on 8 liters with sats in the low 90's. renal function is now normal. Objective Vital Signs - 12hr 10/28/20 10/29/20 10/29/20 22:25 05:41 09:37 Temperature 98.5 F 97.5 F L Pulse Rate 74 76 Respiratory 18 18 Rate Blood Pressure 133/87 138/82 O2 Sat by Pulse 96 94 93 Oximetry CBC and BMP: 10/29/20 05:12 10/29/20 05:12 ABG, PT/INR, D-dimer: PT/INR, D-dimer D-Dimer 872.83 ng/mlDDU (0-234) H 10/22/20 14:04 Abnormal lab findings: Abnormal Labs 10/22/20 10/22/20 10/22/20 12:16 12:16 14:04 WBC 12.3 H RBC 5.12 H Hgb 15.6 H Hct 47.2 H RDW Seg Neuts % (Manual) 79.0 H Lymphocytes % (Manual) Seg Neutrophils # Man 9.7 H Lymphocytes # (Manual) D-Dimer 872.83 H Sodium 132 L Potassium Carbon Dioxide 19 L BUN 47 H Creatinine 4.2 H Glucose 123 H AST 127 H ALT 113 H Lactate Dehydrogenase C-Reactive Protein Albumin 3.6 L Urine Creatinine Urine Chloride Coronavirus (PCR) 10/22/20 10/23/20 10/23/20 14:04 07:06 07:06 WBC RBC 5.06 H Hgb 15.6 H Hct 46.0 H RDW Seg Neuts % (Manual) 86.0 H Lymphocytes % (Manual) 4.0 L Seg Neutrophils # Man 8.4 H Lymphocytes # (Manual) 0.4 L D-Dimer Sodium 133 L Potassium 5.5 H Carbon Dioxide 21 L BUN 45 H Creatinine 3.2 H Glucose 150 H AST ALT Lactate Dehydrogenase 709 H C-Reactive Protein 17.30 H Albumin Urine Creatinine Urine Chloride Coronavirus (PCR) 10/23/20 10/23/20 10/24/20 13:00 Unknown 04:58 WBC 15.7 H RBC Hgb Hct 46.9 H RDW 15.5 H Seg Neuts % (Manual) Lymphocytes % (Manual) Seg Neutrophils # Man Lymphocytes # (Manual) D-Dimer Sodium Potassium Carbon Dioxide BUN Creatinine Glucose AST ALT Lactate Dehydrogenase C-Reactive Protein Albumin Urine Creatinine 147.6 H Urine Chloride 14.1 L Coronavirus (PCR) Positive A 10/24/20 10/25/20 10/25/20 04:58 08:21 08:21 WBC 17.4 H RBC 5.08 H Hgb Hct 46.1 H RDW Seg Neuts % (Manual) Lymphocytes % (Manual) Seg Neutrophils # Man Lymphocytes # (Manual) D-Dimer Sodium 135 L Potassium 5.9 H Carbon Dioxide 21 L BUN 46 H 38 H Creatinine 2.3 H 1.8 H Glucose 147 H 119 H AST 87 H 51 H ALT 129 H 105 H Lactate Dehydrogenase C-Reactive Protein Albumin 3.5 L 3.2 L Urine Creatinine Urine Chloride Coronavirus (PCR) 10/26/20 10/26/20 10/27/20 06:40 06:40 06:49 WBC 14.5 H RBC 5.05 H Hgb Hct 46.3 H RDW Seg Neuts % (Manual) Lymphocytes % (Manual) Seg Neutrophils # Man Lymphocytes # (Manual) D-Dimer Sodium 136 L Potassium Carbon Dioxide BUN 31 H 29 H Creatinine 1.5 H 1.4 H Glucose 136 H 126 H AST 43 H ALT 90 H 87 H Lactate Dehydrogenase C-Reactive Protein Albumin 3.3 L 3.1 L Urine Creatinine Urine Chloride Coronavirus (PCR) 10/27/20 10/29/20 10/29/20 06:49 05:12 05:12 WBC 19.0 H 27.6 H RBC 5.17 H 5.29 H Hgb 16.1 H Hct 47.0 H 48.6 H RDW Seg Neuts % (Manual) Lymphocytes % (Manual) Seg Neutrophils # Man Lymphocytes # (Manual) D-Dimer Sodium Potassium Carbon Dioxide BUN 28 H Creatinine Glucose 134 H AST ALT Lactate Dehydrogenase C-Reactive Protein Albumin Urine Creatinine Urine Chloride Coronavirus (PCR)
--- NOTE | 2020-10-29 17:45 | Progress Note ---
Assessment and Plan - Patient Problems (1) Acute kidney injury Current Visit: Yes Status: Acute Plan to address problem: Prerenal azotemia/COVID associated nephropathy. Kidney function improving. Continue gentle volume repletion and follow-up electrolytes and renal function (2) Hyperkalemia Current Visit: Yes Status: Acute Plan to address problem: Potassium improved with treatment. Follow-up levels (3) Leukocytosis Current Visit: Yes Status: Acute Plan to address problem: Probably steroid-induced. Follow-up white blood cell count (4) Pneumonia due to COVID-19 virus Current Visit: Yes Status: Acute Plan to address problem: Continue treatment by primary attending. 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 I reviewed multidisciplinary notes and discussed with staff and physicians as needed. Patient is now on O2 8 L NC with O2 sat in low 90's Objective - Exam Narrative Exam: Patient was not examined at the bedside today due to personal protective equipment preservation during the COVID-19 pandemic - Vital Signs Vital signs: Vital Signs - 12hr 10/29/20 10/29/20 10/29/20 09:37 10:00 10:45 Pulse Rate 68 O2 Sat by Pulse 93 94 94 Oximetry 10/29/20 15:08 Pulse Rate O2 Sat by Pulse 96 Oximetry - Lab 10/29/20 05:12 10/29/20 05:12 Most recent lab results Calcium 9.4 mg/dL (8.4-10.2) 10/29/20 05:12 Urine Creatinine 147.6 mg/dL (0.1-20.0) H 10/23/20 13:00 Urine Sodium 34 mmol/L 10/23/20 13:00 Medications & Allergies - Medications Allergies/Adverse Reactions: Allergies No Known Allergies Allergy (Verified 10/22/20 15:01) Home Medications: Home Medications Medication Instructions Recorded Confirmed Last Taken Type No Known Home Medications [No 10/25/20 10/25/20 Unknown History Reported Home Medications] Active Medications: Generic Name Dose Route Start Last Admin Trade Name Freq PRN Reason Stop Dose Admin Acetaminophen 650 mg 10/22/20 14:57 10/22/20 17:21 Acetaminophen 325 Mg Tab PO 650 mg Q4H PRN Administration Pain MILD(1-3)/Fever >100.5/THOMPSON Albuterol 2.5 mg 10/22/20 14:57 Albuterol 2.5 Mg/3 Ml Nebu IH Q4HRT PRN Shortness Of Breath Ascorbic Acid 500 mg 10/22/20 22:00 10/29/20 09:44 Ascorbic Acid 500 Mg Tab PO 500 mg BID VARUN Administration Cholecalciferol 1,000 unit 10/23/20 10:00 10/29/20 09:44 Cholecalciferol (Vit D3) 1000 Unit (25 Mcg) Tab PO 1,000 unit QDAY VARUN Administration Famotidine 10 mg 10/22/20 22:00 10/29/20 09:44 Famotidine 10 Mg Tab PO 10 mg BID VARUN Administration Guaifenesin 200 mg 10/26/20 14:29 10/27/20 06:22 Guaifenesin 100 Mg/5 Ml Oral Liqd PO 200 mg Q4H PRN Administration Cough Heparin Sodium (Porcine) 5,000 unit 10/22/20 22:00 10/29/20 09:44 Heparin 5,000 Unit/1 Ml Vial SUB-Q 5,000 unit Q12HR VARUN Administration Hydromorphone HCl 0.5 mg 10/22/20 14:57 10/25/20 01:14 Hydromorphone 1 Mg/1 Ml Inj IV 0.5 mg Q12H PRN Administration Pain , Severe (7-10) Sodium Chloride 1,000 mls @ 100 mls/hr 10/23/20 11:00 10/23/20 22:00 Nacl 0.9% 1000 Ml IV 100 mls/hr DIRECT VARUN Administration Methylprednisolone Sodium Succinate 40 mg 10/22/20 22:00 10/29/20 14:02 Methylprednisolone Sod Succinate 40 Mg/1 Ml Inj IV 40 mg Q8HR VARUN Administration Ondansetron HCl 4 mg 10/22/20 14:57 10/23/20 23:42 Ondansetron 4 Mg/2 Ml Inj IV 4 mg Q8H PRN Administration Nausea And Vomiting Oxycodone/Acetaminophen 1 tab 10/22/20 14:57 10/27/20 02:47 Oxycodone /Acetaminophen 5-325mg Tab PO 1 tab Q12H PRN Administration Pain, Moderate (4-6) Sodium Chloride 10 ml 10/22/20 22:00 10/29/20 09:44 Sodium Chloride 0.9% 10 Ml Flush Syringe IV 10 ml BID VARUN Administration Sodium Chloride 10 ml 10/22/20 14:57 Sodium Chloride 0.9% 10 Ml Flush Syringe IV PRN PRN LINE FLUSH Zinc Sulfate 220 mg 10/22/20 22:00 10/29/20 09:44 Zinc Sulfate 220 Mg Cap PO 220 mg BID VARUN Administration
--- NOTE | 2020-10-29 18:31 | Progress Note ---
Assessment and Plan ltures: Blood culture no growth so far. COVID PCR: positive A/P: 40-year-old man past medical history obesity #Leukocytosis worsening reactive due to resp failure/steroids #Severe COVID-19 pneumonia: Patient presented with a week of symptoms, chest x- ray with diffuse bilateral infiltrates, admission O2 sats on room air. Inflammatory markers elevated #Acute hypoxemic respiratory failure: Likely secondary to COVID-19 infection. Now on salter 8L. #Obesity #KACIE; improving #Elevated transaminases: likely from COVID Recs: -Steroids for 10 days -Completed remdesivir -Obtain q48-72h inflammatory markers - ferritin, Ddimer, CRP, LDH, ordered today -Completed empiric antibiotics. -Anticoagulation per hospital protocol -Proning as able Kelsy Stoll MD [facility] ([facility]) Office [phone] Subjective Date of service: 10/29/20 Principal diagnosis: Acute kidney injury, hyperkalemia, COVID-19 positive test (U07.1, COVID-1 Interval history: Remains on 8 L nasal cannula, no desaturations. Objective - Exam Narrative Exam: COVID exam physical exam deferred to minimize COVID-19 transmission during pandemic. - Constitutional Vitals: Vital Signs Temp Pulse Resp BP Pulse Ox 97.5 F L 68 18 138/82 96 10/29/20 05:41 10/29/20 10:45 10/29/20 05:41 10/29/20 05:41 10/29/20 15:08 Temperature -Last 24 Hours Temperature 97.5 F Temperature 98.5 F - Labs CBC & Chem 7: 10/29/20 05:12 10/29/20 05:12 Labs: Abnormal lab results 10/29/20 10/29/20 Range/Units 05:12 05:12 WBC 27.6 H (4.5-11.0) K/mm3 RBC 5.29 H (3.65-5.03) M/mm3 Hgb 16.1 H (11.8-15.2) gm/dl Hct 48.6 H (35.5-45.6) % BUN 28 H (9-20) mg/dL Glucose 134 H (75-100) mg/dL
[2020-10-30] MEDS: methylPREDNISolone Sod Succinate 40 MG/1 ML INJ IV SCH ×3 (05:19→22:55)
[2020-10-30 06:48] LABS: Hematocrit 44.2 % (35.5-45.6); Hemoglobin 15.1 gm/dl (11.8-15.2); Mean Corpuscular HGB Conc 34 % (32-34); Mean Corpuscular Volume 90 fl (84-94); Platelet Count 372 K/mm3 (140-440); Red Blood Count 4.93 M/mm3 (3.65-5.03); Red Cell Distribution Width 14.5 % (13.2-15.2)
[2020-10-30 07:07] LABS: BUN/Creatinine Ratio 27; Blood Urea Nitrogen 27 mg/dL (9-20); Calcium 9.1 mg/dL (8.4-10.2); Hemolysis Index 18
--- NOTE | 2020-10-30 08:05 | Progress Note ---
Assessment and Plan - Patient Problems (1) Acute kidney injury Current Visit: Yes Status: Acute Plan to address problem: Prerenal azotemia/COVID associated nephropathy. Kidney function improving. Continue gentle volume repletion and follow-up electrolytes and renal function (2) Hyperkalemia Current Visit: Yes Status: Acute Plan to address problem: Potassium improved with treatment. Follow-up levels (3) Leukocytosis Current Visit: Yes Status: Acute Plan to address problem: Probably steroid-induced. Follow-up white blood cell count (4) Pneumonia due to COVID-19 virus Current Visit: Yes Status: Acute Plan to address problem: Continue treatment by primary attending. 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 I reviewed multidisciplinary notes and discussed with staff and physicians as needed. Patient is now on O2 8 L NC with O2 sat in low 90's Objective - Exam Narrative Exam: Patient was not examined at the bedside today due to personal protective equipment preservation during the COVID-19 pandemic - Vital Signs Vital signs: Vital Signs - 12hr 10/29/20 10/29/20 10/29/20 21:00 22:00 22:48 Temperature 98.6 F Pulse Rate 83 Respiratory 18 Rate Blood Pressure 115/72 O2 Sat by Pulse 96 96 95 Oximetry - Lab 10/30/20 05:18 10/30/20 05:18 Most recent lab results Calcium 9.1 mg/dL (8.4-10.2) 10/30/20 05:18 Urine Creatinine 147.6 mg/dL (0.1-20.0) H 10/23/20 13:00 Urine Sodium 34 mmol/L 10/23/20 13:00 Medications & Allergies - Medications Allergies/Adverse Reactions: Allergies No Known Allergies Allergy (Verified 10/22/20 15:01) Home Medications: Home Medications Medication Instructions Recorded Confirmed Last Taken Type No Known Home Medications [No 10/25/20 10/25/20 Unknown History Reported Home Medications] Active Medications: Generic Name Dose Route Start Last Admin Trade Name Freq PRN Reason Stop Dose Admin Acetaminophen 650 mg 10/22/20 14:57 10/22/20 17:21 Acetaminophen 325 Mg Tab PO 650 mg Q4H PRN Administration Pain MILD(1-3)/Fever >100.5/THOMPSON Albuterol 2.5 mg 10/22/20 14:57 Albuterol 2.5 Mg/3 Ml Nebu IH Q4HRT PRN Shortness Of Breath Ascorbic Acid 500 mg 10/22/20 22:00 10/29/20 21:20 Ascorbic Acid 500 Mg Tab PO 500 mg BID VARUN Administration Cholecalciferol 1,000 unit 10/23/20 10:00 10/29/20 09:44 Cholecalciferol (Vit D3) 1000 Unit (25 Mcg) Tab PO 1,000 unit QDAY VARUN Administration Famotidine 10 mg 10/22/20 22:00 10/29/20 21:20 Famotidine 10 Mg Tab PO 10 mg BID VARUN Administration Guaifenesin 200 mg 10/26/20 14:29 10/27/20 06:22 Guaifenesin 100 Mg/5 Ml Oral Liqd PO 200 mg Q4H PRN Administration Cough Heparin Sodium (Porcine) 5,000 unit 10/22/20 22:00 10/29/20 21:20 Heparin 5,000 Unit/1 Ml Vial SUB-Q 5,000 unit Q12HR VARUN Administration Hydromorphone HCl 0.5 mg 10/22/20 14:57 10/25/20 01:14 Hydromorphone 1 Mg/1 Ml Inj IV 0.5 mg Q12H PRN Administration Pain , Severe (7-10) Sodium Chloride 1,000 mls @ 100 mls/hr 10/23/20 11:00 10/23/20 22:00 Nacl 0.9% 1000 Ml IV 100 mls/hr DIRECT VARUN Administration Methylprednisolone Sodium Succinate 40 mg 10/22/20 22:00 10/30/20 05:19 Methylprednisolone Sod Succinate 40 Mg/1 Ml Inj IV 40 mg Q8HR VARUN Administration Ondansetron HCl 4 mg 10/22/20 14:57 10/23/20 23:42 Ondansetron 4 Mg/2 Ml Inj IV 4 mg Q8H PRN Administration Nausea And Vomiting Oxycodone/Acetaminophen 1 tab 10/22/20 14:57 10/27/20 02:47 Oxycodone /Acetaminophen 5-325mg Tab PO 1 tab Q12H PRN Administration Pain, Moderate (4-6) Sodium Chloride 10 ml 10/22/20 22:00 10/29/20 21:23 Sodium Chloride 0.9% 10 Ml Flush Syringe IV 10 ml BID VARUN Administration Sodium Chloride 10 ml 10/22/20 14:57 Sodium Chloride 0.9% 10 Ml Flush Syringe IV PRN PRN LINE FLUSH Zinc Sulfate 220 mg 10/22/20 22:00 10/29/20 21:20 Zinc Sulfate 220 Mg Cap PO 220 mg BID VARUN Administration
[2020-10-30] MEDS: ASCORBIC ACID 500 MG TAB PO SCH ×2 (11:46→22:55)
[2020-10-30] MEDS: CHOLECALCIFEROL (VIT D3) 1000 UNIT (25 mcg) TAB PO SCH (11:46)
[2020-10-30] MEDS: HEPARIN 5,000 UNIT/1 ML VIAL SUB-Q SCH ×2 (11:46→22:59)
[2020-10-30] MEDS: FAMOTIDINE 10 MG TAB PO SCH ×2 (11:46→22:55)
[2020-10-30] MEDS: ZINC SULFATE 220 MG CAP PO SCH ×2 (11:47→22:55)
--- NOTE | 2020-10-30 12:17 | Progress Note ---
Assessment and Plan Assessment and plan: 40 YO Male with Obesity Hypoventilation Syndrome, Coronavirus Infection diagnosed 1 week ago presents to ED for evaluation. Patient reports "it is hard for me to breathe". Patient states that he has experienced shortness of breath, subjective fever, loss of sense of smell, loss of sense of taste, fatigue, malaise, nausea, multiple episodes of vomiting, diminished oral intake and a subjective weight loss of 15 pounds over the past 1 week. Patient transported to [facility] via private vehicle for further care and evaluation of the aforementioned symptoms. The patient was seen and evaluated in the emergency department. All lab and imaging studies reviewed. Patient was found to have a pulse oximetry of 84% on exertion which is consistent with acute hypoxemic respiratory failure. Chest x-ray revealed bilateral pneumonia. Patient admitted to medical floor and initiated on coronavirus protocol as well as pneumonia protocol. Patient denies chills, chest pain, palpitations, skin rash. Patient knowledges suspected contact with coronavirus positive individuals. No prior admission for review. No medication listed at time of admission reconciliation. 10/23: Patient seen and examined today. We will increase him to high flow due to severe hypoxia. Have consulted pulmonary and also infectious disease. He is started on high-dose steroids. Likely not a candidate for remdesivir due to renal dysfunction. I have encouraged him to prone also discussed with his . Unfortunately he is unvaccinated. His also was affected but he states that hers was mild. Wean oxygen as tolerated. Will defer Actemra to infectious disease team. Renal function showing some slight improvement will give a dose of Kayexalate for the hyperkalemia. Chest x-ray shows bilateral diffuse opacities 10/24 Patient with Covid-19 pneumonia with acute respiratory failure. On Oxygen at 10 l/min. On Remdesivir. KACIE improving. Hyperkalemia worse, Potassium 5.9 today. Kayexalate, Insulin ordered. 10/25/20 Patient with Covid-19 pneumonia with acute respiratory failure. Now on Oxygen at 9 l/min NC. KACIE improving Cr 1.8 today. Hyperkalemia resolved. Potassium 4.9 10/26/20 Patient with Covid-19 pneumonia with acute hypoxemic respiratory failure. KACIE improving. His Cr down to 1.5 today. On Oxygen at 10 l/min. 10/27/20 Patient with Covid-19 pneumonia with acute hypoxemic respiratory failure. Patient also has KACIE which is improving. His Cr down to 1.4 today.Still on Oxygen at 10 l/min. 10/28/20 Patient with Covid-19 pneumonia with acute hypoxemic respiratory failure. Patient also has KACIE which is improving. His Cr down to 1.4 yesterday. His Oxygen is being weaned. He is on 7 l/min today down from 10 l/min yesterday. 10/29/20 Patient with Covid-19 pneumonia with acute hypoxemic respiratory failure. Patient also has KACIE which is now resolved, Cr 1.1 today. He is on Oxygen 8 l/min 10/30/20 Patient with Covid-19 pneumonia with acute hypoxemic respiratory failure. He is on Oxygen 8 l/min. I discussed with Resp to try to wean Oxygen if possible. Now weaned down to 5 l/min KACIE resolved. Creatinine 1.0 today Hopefully dc home in few days (1) Acute hypoxemic respiratory failure Current Visit: Yes Status: Acute Plan to address problem: Chest x-ray, supplemental oxygen, pulse oximetry, nebulizer therapy, pulmonary toilet (2) Pneumonia Current Visit: Yes Status: Acute Plan to address problem: Pneumonia protocol: Chest x-ray, CBC, CMP, supplemental oxygen, pulse oximetry, nebulizer therapy, blood culture. (3) Obesity hypoventilation syndrome Current Visit: Yes Status: Acute Plan to address problem: Balanced diet, increase physical activity at discharge, outpatient pulmonary follow-up for sleep study, (4) COVID-19 virus infection Current Visit: Yes Status: Acute Plan to address problem: Coronavirus protocol: IV antibiotic therapy, IV steroid therapy, supplemental oxygen, pulse oximetry, vitamin C therapy, vitamin D therapy, zinc therapy, prone positioning while in bed, prophylactic anticoagulation. (5) Acute kidney injury with vasomotor nephropathy (6) Hyperkalemia (7) DVT prophylaxis Current Visit: Yes Status: Acute Plan to address problem: SCDs bilateral lower extremities while in bed, prophylactic anticoagulation. History Interval history: Less shortness of breath Feels better Hospitalist Physical - Physical exam Narrative exam: Gen:Not in acute distress, lying in bed,obese HEENT:Normocephalic, atraumatic Neck:supple, no JVD Lungs: Bilateral crackles, no wheeze Heart:S1 and S2 reg, no murmurs, rubs or gallop Abd:Soft, non tender, non distended, normal bowel sounds Ext:No edema. no clubbing, no cyanosis Neuro:Awake, alert, oriented X 3, moves all ext - Constitutional Vitals: Temp Pulse Resp BP Pulse Ox 98.6 F 83 18 115/72 97 10/29/20 22:48 10/29/20 22:48 10/29/20 22:48 10/29/20 22:48 10/30/20 11:15 General appearance: Present: obese Results - Labs CBC & Chem 7: 10/30/20 05:18 10/30/20 05:18 Labs: Laboratory Last Values WBC 27.3 K/mm3 (4.5-11.0) H 10/30/20 05:18 RBC 4.93 M/mm3 (3.65-5.03) 10/30/20 05:18 Hgb 15.1 gm/dl (11.8-15.2) 10/30/20 05:18 Hct 44.2 % (35.5-45.6) 10/30/20 05:18 MCV 90 fl (84-94) 10/30/20 05:18 MCH 31 pg (28-32) 10/30/20 05:18 MCHC 34 % (32-34) 10/30/20 05:18 RDW 14.5 % (13.2-15.2) 10/30/20 05:18 Plt Count 372 K/mm3 (140-440) 10/30/20 05:18 Add Manual Diff Complete 10/23/20 07:06 Total Counted 100 10/23/20 07:06 Seg Neuts % (Manual) 86.0 % (40.0-70.0) H 10/23/20 07:06 Band Neutrophils % 2.0 % 10/23/20 07:06 Lymphocytes % (Manual) 4.0 % (13.4-35.0) L 10/23/20 07:06 Reactive Lymphs % (Man) 1.0 % 10/22/20 12:16 Monocytes % (Manual) 5.0 % (0.0-7.3) 10/23/20 07:06 Metamyelocytes % 1.0 % 10/23/20 07:06 Myelocytes % 2.0 % 10/23/20 07:06 Promyelocytes % 3.0 % 10/22/20 12:16 Nucleated RBC % Not Reportable 10/23/20 07:06 Seg Neutrophils # Man 8.4 K/mm3 (1.8-7.7) H 10/23/20 07:06 Band Neutrophils # 0.2 K/mm3 10/23/20 07:06 Lymphocytes # (Manual) 0.4 K/mm3 (1.2-5.4) L 10/23/20 07:06 Abs React Lymphs (Man) 0.0 K/mm3 10/23/20 07:06 Monocytes # (Manual) 0.5 K/mm3 (0.0-0.8) 10/23/20 07:06 Eosinophils # (Manual) 0.0 K/mm3 (0.0-0.4) 10/23/20 07:06 Basophils # (Manual) 0.0 K/mm3 (0.0-0.1) 10/23/20 07:06 Metamyelocytes # 0.1 K/mm3 10/23/20 07:06 Myelocytes # 0.2 K/mm3 10/23/20 07:06 Promyelocytes # 0.0 K/mm3 10/23/20 07:06 Blast Cells # 0.0 K/mm3 10/23/20 07:06 WBC Morphology Not Reportable 10/23/20 07:06 Hypersegmented Neuts Not Reportable 10/23/20 07:06 Hyposegmented Neuts Not Reportable 10/23/20 07:06 Hypogranular Neuts Not Reportable 10/23/20 07:06 Smudge Cells Not Reportable 10/23/20 07:06 Toxic Granulation Not Reportable 10/23/20 07:06 Toxic Vacuolation Not Reportable 10/23/20 07:06 Dohle Bodies Not Reportable 10/23/20 07:06 Pelger-Huet Anomaly Not Reportable 10/23/20 07:06 Fariba Rods Not Reportable 10/23/20 07:06 Platelet Estimate Consistent w auto 10/23/20 07:06 Clumped Platelets Not Reportable 10/23/20 07:06 Plt Clumps, EDTA Not Reportable 10/23/20 07:06 Large Platelets Not Reportable 10/23/20 07:06 Giant Platelets Not Reportable 10/23/20 07:06 Platelet Satelliting Not Reportable 10/23/20 07:06 Plt Morphology Comment Not Reportable 10/23/20 07:06 RBC Morphology Normal 10/23/20 07:06 Dimorphic RBCs Not Reportable 10/23/20 07:06 Polychromasia Not Reportable 10/23/20 07:06 Hypochromasia Not Reportable 10/23/20 07:06 Poikilocytosis Not Reportable 10/23/20 07:06 Anisocytosis Not Reportable 10/23/20 07:06 Microcytosis Not Reportable 10/23/20 07:06 Macrocytosis Not Reportable 10/23/20 07:06 Spherocytes Not Reportable 10/23/20 07:06 Pappenheimer Bodies Not Reportable 10/23/20 07:06 Sickle Cells Not Reportable 10/23/20 07:06 Target Cells Not Reportable 10/23/20 07:06 Tear Drop Cells Not Reportable 10/23/20 07:06 Ovalocytes Not Reportable 10/23/20 07:06 Helmet Cells Not Reportable 10/23/20 07:06 [place] Bodies Not Reportable 10/23/20 07:06 [place] Rings Not Reportable 10/23/20 07:06 Maggie Cells Not Reportable 10/23/20 07:06 Bite Cells Not Reportable 10/23/20 07:06 Crenated Cell Not Reportable 10/23/20 07:06 Elliptocytes Not Reportable 10/23/20 07:06 Acanthocytes (Spur) Not Reportable 10/23/20 07:06 Rouleaux Not Reportable 10/23/20 07:06 Hemoglobin C Crystals Not Reportable 10/23/20 07:06 Schistocytes Not Reportable 10/23/20 07:06 Malaria parasites Not Reportable 10/23/20 07:06 Calvin Bodies Not Reportable 10/23/20 07:06 Hem Pathologist Commnt No 10/23/20 07:06 D-Dimer 872.83 ng/mlDDU (0-234) H 10/22/20 14:04 Sodium 139 mmol/L (137-145) 10/30/20 05:18 Potassium 4.7 mmol/L (3.6-5.0) 10/30/20 05:18 Chloride 103.0 mmol/L (98-107) 10/30/20 05:18 Carbon Dioxide 28 mmol/L (22-30) 10/30/20 05:18 Anion Gap 13 mmol/L 10/30/20 05:18 BUN 27 mg/dL (9-20) H 10/30/20 05:18 Creatinine 1.0 mg/dL (0.8-1.3) 10/30/20 05:18 Estimated GFR > 60 ml/min 10/30/20 05:18 BUN/Creatinine Ratio 27 % 10/30/20 05:18 Glucose 154 mg/dL (75-100) H 10/30/20 05:18 Calcium 9.1 mg/dL (8.4-10.2) 10/30/20 05:18 Total Bilirubin 0.40 mg/dL (0.1-1.2) 10/27/20 06:49 AST 39 units/L (5-40) 10/27/20 06:49 ALT 87 units/L (7-56) H 10/27/20 06:49 Alkaline Phosphatase 56 units/L (35-129) 10/27/20 06:49 Lactate Dehydrogenase 709 units/L (91-180) H 10/22/20 14:04 C-Reactive Protein 17.30 mg/dL (0.00-1.30) H 10/22/20 14:04 NT-Pro-B Natriuret Pep 83.97 pg/mL (0-450) 10/22/20 14:04 Total Protein 6.5 g/dL (6.3-8.2) 10/27/20 06:49 Albumin 3.1 g/dL (3.9-5) L 10/27/20 06:49 Albumin/Globulin Ratio 0.9 % 10/27/20 06:49 Procalcitonin 0.50 ng/mL (<0.15) 10/22/20 14:04 Urine Color Yellow (Yellow) 10/23/20 13:00 Urine Turbidity Clear (Clear) 10/23/20 13:00 Urine pH 6.0 (5.0-7.0) 10/23/20 13:00 Ur Specific [place] 1.015 (1.003-1.030) 10/23/20 13:00 Urine Protein 30 mg/dl mg/dL (Negative) 10/23/20 13:00 Urine Glucose (UA) Neg mg/dL (Negative) 10/23/20 13:00 Urine Ketones Neg mg/dL (Negative) 10/23/20 13:00 Urine Blood Mod (Negative) 10/23/20 13:00 Urine Nitrite Neg (Negative) 10/23/20 13:00 Urine Bilirubin Neg (Negative) 10/23/20 13:00 Urine Urobilinogen 2.0 mg/dL (<2.0) 10/23/20 13:00 Ur Leukocyte Esterase Neg (Negative) 10/23/20 13:00 Urine WBC (Auto) 4.0 /HPF (0.0-6.0) 10/23/20 13:00 Urine RBC (Auto) 2.0 /HPF (0.0-6.0) 10/23/20 13:00 Urine Mucus Few /HPF 10/23/20 13:00 Urine Creatinine 147.6 mg/dL (0.1-20.0) H 10/23/20 13:00 Urine Sodium 34 mmol/L 10/23/20 13:00 Urine Chloride 14.1 mmolL (110-250) L 10/23/20 13:00 Coronavirus (PCR) Positive (Negative) A 10/23/20 Unknown Gregorio/IV: Voiding Method Urinal Active Medications - Current Medications Current Medications: Generic Name Dose Route Start Last Admin Trade Name Freq PRN Reason Stop Dose Admin Acetaminophen 650 mg 10/22/20 14:57 10/22/20 17:21 Acetaminophen 325 Mg Tab PO 650 mg Q4H PRN Administration Pain MILD(1-3)/Fever >100.5/THOMPSON Albuterol 2.5 mg 10/22/20 14:57 Albuterol 2.5 Mg/3 Ml Nebu IH Q4HRT PRN Shortness Of Breath Ascorbic Acid 500 mg 10/22/20 22:00 10/30/20 11:46 Ascorbic Acid 500 Mg Tab PO 500 mg BID VAURN Administration Cholecalciferol 1,000 unit 10/23/20 10:00 10/30/20 11:46 Cholecalciferol (Vit D3) 1000 Unit (25 Mcg) Tab PO 1,000 unit QDAY VARUN Administration Famotidine 10 mg 10/22/20 22:00 10/30/20 11:46 Famotidine 10 Mg Tab PO 10 mg BID VARUN Administration Guaifenesin 200 mg 10/26/20 14:29 10/27/20 06:22 Guaifenesin 100 Mg/5 Ml Oral Liqd PO 200 mg Q4H PRN Administration Cough Heparin Sodium (Porcine) 5,000 unit 10/22/20 22:00 10/30/20 11:46 Heparin 5,000 Unit/1 Ml Vial SUB-Q 5,000 unit Q12HR VARUN Administration Hydromorphone HCl 0.5 mg 10/22/20 14:57 10/25/20 01:14 Hydromorphone 1 Mg/1 Ml Inj IV 0.5 mg Q12H PRN Administration Pain , Severe (7-10) Sodium Chloride 1,000 mls @ 50 mls/hr 10/23/20 11:00 10/23/20 22:00 Nacl 0.9% 1000 Ml IV 100 mls/hr DIRECT VARUN Administration Methylprednisolone Sodium Succinate 40 mg 10/22/20 22:00 10/30/20 05:19 Methylprednisolone Sod Succinate 40 Mg/1 Ml Inj IV 40 mg Q8HR VARUN Administration Ondansetron HCl 4 mg 10/22/20 14:57 10/23/20 23:42 Ondansetron 4 Mg/2 Ml Inj IV 4 mg Q8H PRN Administration Nausea And Vomiting Oxycodone/Acetaminophen 1 tab 10/22/20 14:57 10/27/20 02:47 Oxycodone /Acetaminophen 5-325mg Tab PO 1 tab Q12H PRN Administration Pain, Moderate (4-6) Sodium Chloride 10 ml 10/22/20 22:00 10/30/20 11:46 Sodium Chloride 0.9% 10 Ml Flush Syringe IV 10 ml BID VARUN Administration Sodium Chloride 10 ml 10/22/20 14:57 Sodium Chloride 0.9% 10 Ml Flush Syringe IV PRN PRN LINE FLUSH Zinc Sulfate 220 mg 10/22/20 22:00 10/30/20 11:47 Zinc Sulfate 220 Mg Cap PO 220 mg BID VARUN Administration Nutrition/Malnutrition Assess - Dietary Evaluation Nutrition/Malnutrition Findings: Nutrition Notes Start: 10/27/20 13:35 Freq: Status: Active Protocol: Document 10/27/20 13:36 UDAY (Rec: 10/27/20 13:42 UDAY [id number]) Nutrition Notes Need for Assessment generated from: LOS Initial or Follow up Assessment Current Diagnosis Acute Kidney Injury, Respiratory Failure Other Pertinent Diagnosis COVID-19, pneu, hyperkalemia Current Diet cardiac Labs/Tests Na 136 BUN 29 Cr 1.4 BG 126 Pertinent Medications Zinc D3 Vitamin C Solu Medrol Height 6 ft Weight 125.191 kg [place] Body Weight (kg) 80.90 BMI 37.4 Weight Status Obese Subjective/Other Information Screen for LOS. Per chart, pt eating an average of 50% of meals in past 60 hours. Burn Absent Trauma Absent Current % PO Poor (25-49%) Minimum of two criteria No #1 Nutrition Diagnosis Inadequate oral intake Etiology unknown As Evidenced by Signs and Symptoms pt eating an average of 50% of meals Is patient on ventilator? No Is Patient Ambulatory and/or Out of Bed Yes REE-([place] or-ambulatory/OOB) [ 2872.883 NUTR.[id number]] Kcal/Kg value to use for calculation 16 Approximate Energy Requirements Using 2003 kcal/Kg Calculation Used for Recommendations Kcal/kg Additional Notes Protein: (0.8-1g/kg AdjBW: 103kg) 82-103g Fluid: 1 ml/kcal or per MD Nutrition Intervention Change Diet Order: Continue Add Supplement/Snack (indicate name/kcal Ensure Enlive BID /protein ) Provides kCal: 700 Provides Protein (gm) 40 Goal #1 Meet at least 75% of protein and kcal needs via PO and ONS Anticipated Discharge Needs: Cardiac Follow-Up By: 10/31/20 Additional Comments F/u: intakes and ONS tolerance
--- NOTE | 2020-10-30 14:11 | Progress Note ---
Assessment and Plan 40 y/o male with acute respiratory failure, concern for COVID positive state with pneumonia and renal failure : Oxygen requirement continues to improve. Continue to prone. Consider walk test in the next 24-48 hours to assess oxygen needs if any. Steroids for 10 days. Hopeful discharge soon. 10/29/20: Prone if possible and for as long as possible. Continue steroids at current dosing. 10/28/20: Hold on increase in steroid. Prone. prognosis still guarded but promising. 10/27/20: More proning if possible. Won't increase steroid dose as of right now, but if oxygen requirement increases will increase to 125 q8. Guarded prognosis. 10/26/20: Renal function continues to improve but oxygen is the same. Needs to prone more. Continue steroids, may need to consider upping the dose, especially if oxygen requirement increases. Guarded prognosis. 10/25/20: Continue to wean FiO2 as tolerated. Continue steroids. Prone if possible. Renal function improving. Guarded prognosis. 10/24/20: Continue current level of care. Would be mindful of pain management as patient has several meds available and appears to be using all of them. Given his respiratory state, at risk for failure if too many meds provided. Also will not clear as fast given renal failure. Dilaudid is the best choice given his renal insufficiency. Prone if able. 1. AGree with steroids 2. Prone if able 3. Follow up renal recs 4. If covid positive plus renal failure, extremely guarded prognosis. Subjective Date of service: 10/30/20 Principal diagnosis: Acute kidney injury, hyperkalemia, COVID-19 positive test (U07.1, COVID-1 Interval history: Weaned down to 2 liters. Good sats. Objective Vital Signs - 12hr 10/30/20 10/30/20 11:15 11:30 Temperature 98.7 F Pulse Rate 79 Respiratory 18 Rate Blood Pressure 117/60 O2 Sat by Pulse 97 97 Oximetry CBC and BMP: 10/30/20 05:18 10/30/20 05:18 ABG, PT/INR, D-dimer: PT/INR, D-dimer D-Dimer 872.83 ng/mlDDU (0-234) H 10/22/20 14:04 Abnormal lab findings: Abnormal Labs 09/07/0710/22/20 10/22/20 12:16 12:16 14:04 WBC 12.3 H RBC 5.12 H Hgb 15.6 H Hct 47.2 H RDW Seg Neuts % (Manual) 79.0 H Lymphocytes % (Manual) Seg Neutrophils # Man 9.7 H Lymphocytes # (Manual) D-Dimer 872.83 H Sodium 132 L Potassium Carbon Dioxide 19 L BUN 47 H Creatinine 4.2 H Glucose 123 H AST 127 H ALT 113 H Lactate Dehydrogenase C-Reactive Protein Albumin 3.6 L Urine Creatinine Urine Chloride Coronavirus (PCR) 10/22/20 10/23/20 10/23/20 14:04 07:06 07:06 WBC RBC 5.06 H Hgb 15.6 H Hct 46.0 H RDW Seg Neuts % (Manual) 86.0 H Lymphocytes % (Manual) 4.0 L Seg Neutrophils # Man 8.4 H Lymphocytes # (Manual) 0.4 L D-Dimer Sodium 133 L Potassium 5.5 H Carbon Dioxide 21 L BUN 45 H Creatinine 3.2 H Glucose 150 H AST ALT Lactate Dehydrogenase 709 H C-Reactive Protein 17.30 H Albumin Urine Creatinine Urine Chloride Coronavirus (PCR) 10/23/20 10/23/20 10/24/20 13:00 Unknown 04:58 WBC 15.7 H RBC Hgb Hct 46.9 H RDW 15.5 H Seg Neuts % (Manual) Lymphocytes % (Manual) Seg Neutrophils # Man Lymphocytes # (Manual) D-Dimer Sodium Potassium Carbon Dioxide BUN Creatinine Glucose AST ALT Lactate Dehydrogenase C-Reactive Protein Albumin Urine Creatinine 147.6 H Urine Chloride 14.1 L Coronavirus (PCR) Positive A 10/24/20 10/25/20 10/25/20 04:58 08:21 08:21 WBC 17.4 H RBC 5.08 H Hgb Hct 46.1 H RDW Seg Neuts % (Manual) Lymphocytes % (Manual) Seg Neutrophils # Man Lymphocytes # (Manual) D-Dimer Sodium 135 L Potassium 5.9 H Carbon Dioxide 21 L BUN 46 H 38 H Creatinine 2.3 H 1.8 H Glucose 147 H 119 H AST 87 H 51 H ALT 129 H 105 H Lactate Dehydrogenase C-Reactive Protein Albumin 3.5 L 3.2 L Urine Creatinine Urine Chloride Coronavirus (PCR) 10/26/20 10/26/20 10/27/20 06:40 06:40 06:49 WBC 14.5 H RBC 5.05 H Hgb Hct 46.3 H RDW Seg Neuts % (Manual) Lymphocytes % (Manual) Seg Neutrophils # Man Lymphocytes # (Manual) D-Dimer Sodium 136 L Potassium Carbon Dioxide BUN 31 H 29 H Creatinine 1.5 H 1.4 H Glucose 136 H 126 H AST 43 H ALT 90 H 87 H Lactate Dehydrogenase C-Reactive Protein Albumin 3.3 L 3.1 L Urine Creatinine Urine Chloride Coronavirus (PCR) 10/27/20 10/29/20 10/29/20 06:49 05:12 05:12 WBC 19.0 H 27.6 H RBC 5.17 H 5.29 H Hgb 16.1 H Hct 47.0 H 48.6 H RDW Seg Neuts % (Manual) Lymphocytes % (Manual) Seg Neutrophils # Man Lymphocytes # (Manual) D-Dimer Sodium Potassium Carbon Dioxide BUN 28 H Creatinine Glucose 134 H AST ALT Lactate Dehydrogenase C-Reactive Protein Albumin Urine Creatinine Urine Chloride Coronavirus (PCR) 10/30/20 10/30/20 05:18 05:18 WBC 27.3 H RBC Hgb Hct RDW Seg Neuts % (Manual) Lymphocytes % (Manual) Seg Neutrophils # Man Lymphocytes # (Manual) D-Dimer Sodium Potassium Carbon Dioxide BUN 27 H Creatinine Glucose 154 H AST ALT Lactate Dehydrogenase C-Reactive Protein Albumin Urine Creatinine Urine Chloride Coronavirus (PCR)
--- NOTE | 2020-10-30 16:37 | Progress Note ---
Assessment and Plan ltures: Blood culture no growth so far. COVID PCR: positive A/P: 40-year-old man past medical history obesity #Leukocytosis worsening reactive due to resp failure/steroids #Severe COVID-19 pneumonia: Patient presented with a week of symptoms, chest x- ray with diffuse bilateral infiltrates, admission O2 sats on room air. Inflammatory markers elevated #Acute hypoxemic respiratory failure: Likely secondary to COVID-19 infection. Now on 5L #Obesity #KACIE; improving #Elevated transaminases: likely from COVID Recs: -Home O2 evaluation -Steroids for 10 days -Completed remdesivir -Obtain q48-72h inflammatory markers - ferritin, Ddimer, CRP, LDH, ordered today -Completed empiric antibiotics. -Anticoagulation per hospital protocol -Proning as able will sign off please call me if any questions MD [facility] ([facility]) Office [phone] Subjective Date of service: 10/30/20 Principal diagnosis: Acute kidney injury, hyperkalemia, COVID-19 positive test (U07.1, COVID-1 Interval history: Now on 5L no desaturation Objective - Exam Narrative Exam: COVID exam physical exam deferred to minimize COVID-19 transmission during pandemic. - Constitutional Vitals: Vital Signs Temp Pulse Resp BP Pulse Ox 98.7 F 79 18 117/60 97 10/30/20 11:30 10/30/20 11:30 10/30/20 11:30 10/30/20 11:30 10/30/20 11:30 Temperature -Last 24 Hours Temperature 98.7 F Temperature 98.6 F - Labs CBC & Chem 7: 10/30/20 05:18 10/30/20 05:18 Labs: Abnormal lab results 10/30/20 10/30/20 Range/Units 05:18 05:18 WBC 27.3 H (4.5-11.0) K/mm3 BUN 27 H (9-20) mg/dL Glucose 154 H (75-100) mg/dL
[2020-10-30] MEDS: guaiFENesin 100 MG/5 ML ORAL LIQD PO PRN (22:55)
[2020-10-31 06:35] LABS: Hemoglobin 15.4 gm/dl (11.8-15.2); Mean Corpuscular HGB Conc 32 % (32-34); Mean Corpuscular Volume 91 fl (84-94); Platelet Count 391 K/mm3 (140-440); Red Blood Count 5.27 M/mm3 (3.65-5.03); Red Cell Distribution Width 14.7 % (13.2-15.2)
[2020-10-31 06:42] LABS: BUN/Creatinine Ratio 26; Blood Urea Nitrogen 26 mg/dL (9-20); Calcium 9.1 mg/dL (8.4-10.2); Hemolysis Index 10
[2020-10-31] MEDS: methylPREDNISolone Sod Succinate 40 MG/1 ML INJ IV SCH ×2 (06:46→15:07)
[2020-10-31] MEDS: guaiFENesin 100 MG/5 ML ORAL LIQD PO PRN (06:49)
--- NOTE | 2020-10-31 08:35 | Progress Note ---
Assessment and Plan - Patient Problems (1) Acute kidney injury Current Visit: Yes Status: Acute Plan to address problem: Prerenal azotemia/COVID associated nephropathy. Kidney function improved. No further recommendations. Will sign off (2) Hyperkalemia Current Visit: Yes Status: Acute Plan to address problem: Potassium improved with treatment. Follow-up levels (3) Leukocytosis Current Visit: Yes Status: Acute Plan to address problem: Probably steroid-induced. Follow-up white blood cell count (4) Pneumonia due to COVID-19 virus Current Visit: Yes Status: Acute Plan to address problem: Continue treatment by primary attending. 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 I reviewed multidisciplinary notes and discussed with staff and physicians as needed. Patient is now on O2 NC Objective - Vital Signs Vital signs: Vital Signs - 12hr 10/30/20 10/30/20 10/30/20 22:00 22:25 23:43 Temperature 98.4 F Pulse Rate 76 Respiratory 18 Rate Blood Pressure 124/72 O2 Sat by Pulse 95 93 94 Oximetry 10/31/20 05:46 Temperature 98.4 F Pulse Rate 65 Respiratory 18 Rate Blood Pressure 126/90 O2 Sat by Pulse 93 Oximetry - Lab 10/31/20 05:40 10/31/20 05:40 Most recent lab results Calcium 9.1 mg/dL (8.4-10.2) 10/31/20 05:40 Urine Creatinine 147.6 mg/dL (0.1-20.0) H 10/23/20 13:00 Urine Sodium 34 mmol/L 10/23/20 13:00 Medications & Allergies - Medications Allergies/Adverse Reactions: Allergies No Known Allergies Allergy (Verified 10/22/20 15:01) Home Medications: Home Medications Medication Instructions Recorded Confirmed Last Taken Type Albuterol Mdi (or & Nicu Only) 2 puff IH QID PRN #8.5 gram 10/31/20 Unknown Rx [ProAir HFA Inhaler] Ascorbic Acid [Vitamin C] 500 mg PO BID #7 tablet 10/31/20 Unknown Rx Cholecalciferol Vit D3 [Vitamin D3 1,000 unit PO QDAY #7 tablet 10/31/20 Unknown Rx 1,000 UNIT TAB] Zinc Sulfate 220 mg PO BID #7 capsule 10/31/20 Unknown Rx predniSONE 10 mg PO .TAPER #21 tab 10/31/20 Unknown Rx Active Medications: Generic Name Dose Route Start Last Admin Trade Name Freq PRN Reason Stop Dose Admin Acetaminophen 650 mg 10/22/20 14:57 10/22/20 17:21 Acetaminophen 325 Mg Tab PO 650 mg Q4H PRN Administration Pain MILD(1-3)/Fever >100.5/THOMPSON Albuterol 2.5 mg 10/22/20 14:57 Albuterol 2.5 Mg/3 Ml Nebu IH Q4HRT PRN Shortness Of Breath Ascorbic Acid 500 mg 10/22/20 22:00 10/30/20 22:55 Ascorbic Acid 500 Mg Tab PO 500 mg BID VARUN Administration Cholecalciferol 1,000 unit 10/23/20 10:00 10/30/20 11:46 Cholecalciferol (Vit D3) 1000 Unit (25 Mcg) Tab PO 1,000 unit QDAY VARUN Administration Famotidine 10 mg 10/22/20 22:00 10/30/20 22:55 Famotidine 10 Mg Tab PO 10 mg BID VARUN Administration Guaifenesin 200 mg 10/26/20 14:29 10/31/20 06:49 Guaifenesin 100 Mg/5 Ml Oral Liqd PO 200 mg Q4H PRN Administration Cough Heparin Sodium (Porcine) 5,000 unit 10/22/20 22:00 10/30/20 22:59 Heparin 5,000 Unit/1 Ml Vial SUB-Q 5,000 unit Q12HR VARUN Administration Hydromorphone HCl 0.5 mg 10/22/20 14:57 10/25/20 01:14 Hydromorphone 1 Mg/1 Ml Inj IV 0.5 mg Q12H PRN Administration Pain , Severe (7-10) Sodium Chloride 1,000 mls @ 50 mls/hr 10/23/20 11:00 10/23/20 22:00 Nacl 0.9% 1000 Ml IV 100 mls/hr DIRECT VARUN Administration Methylprednisolone Sodium Succinate 40 mg 10/22/20 22:00 10/31/20 06:46 Methylprednisolone Sod Succinate 40 Mg/1 Ml Inj IV 40 mg Q8HR VARUN Administration Ondansetron HCl 4 mg 10/22/20 14:57 10/23/20 23:42 Ondansetron 4 Mg/2 Ml Inj IV 4 mg Q8H PRN Administration Nausea And Vomiting Oxycodone/Acetaminophen 1 tab 10/22/20 14:57 10/27/20 02:47 Oxycodone /Acetaminophen 5-325mg Tab PO 1 tab Q12H PRN Administration Pain, Moderate (4-6) Sodium Chloride 10 ml 10/22/20 22:00 10/30/20 22:55 Sodium Chloride 0.9% 10 Ml Flush Syringe IV 10 ml BID VARUN Administration Sodium Chloride 10 ml 10/22/20 14:57 Sodium Chloride 0.9% 10 Ml Flush Syringe IV PRN PRN LINE FLUSH Zinc Sulfate 220 mg 10/22/20 22:00 10/30/20 22:55 Zinc Sulfate 220 Mg Cap PO 220 mg BID VARUN Administration
[2020-10-31] MEDS: CHOLECALCIFEROL (VIT D3) 1000 UNIT (25 mcg) TAB PO SCH (09:54)
[2020-10-31] MEDS: ZINC SULFATE 220 MG CAP PO SCH (09:55)
[2020-10-31] MEDS: HEPARIN 5,000 UNIT/1 ML VIAL SUB-Q SCH (09:55)
[2020-10-31] MEDS: ASCORBIC ACID 500 MG TAB PO SCH (09:55)
[2020-10-31] MEDS: FAMOTIDINE 10 MG TAB PO SCH (09:55)
--- NOTE | 2020-10-31 10:43 | Progress Note ---
Assessment and Plan 40 y/o male with acute respiratory failure, concern for COVID positive state with pneumonia and renal failure 10/31/20: Walk test as early as today. Proning should continue despite improvement and even at discharge. Steroids for a total of 10 days. Prognosis is still guarded but more promising. : Oxygen requirement continues to improve. Continue to prone. Consider walk test in the next 24-48 hours to assess oxygen needs if any. Steroids for 10 days. Hopeful discharge soon. 10/29/20: Prone if possible and for as long as possible. Continue steroids at current dosing. 10/28/20: Hold on increase in steroid. Prone. prognosis still guarded but promising. 10/27/20: More proning if possible. Won't increase steroid dose as of right now, but if oxygen requirement increases will increase to 125 q8. Guarded progn osis. 10/26/20: Renal function continues to improve but oxygen is the same. Needs to prone more. Continue steroids, may need to consider upping the dose, especially if oxygen requirement increases. Guarded prognosis. 10/25/20: Continue to wean FiO2 as tolerated. Continue steroids. Prone if po ssible. Renal function improving. Guarded prognosis. 10/24/20: Continue current level of care. Would be mindful of pain management as patient has several meds available and appears to be using all of them. Given his respiratory state, at risk for failure if too many meds provided. Also will not clear as fast given renal failure. Dilaudid is the best choice given his renal insufficiency. Prone if able. 1. AGree with steroids 2. Prone if able 3. Follow up renal recs 4. If covid positive plus renal failure, extremely guarded prognosis. Subjective Date of service: 10/31/20 Principal diagnosis: Acute kidney injury, hyperkalemia, COVID-19 positive test (U07.1, COVID-1 Interval history: Transitioned to nasal cannula over night. Good sats. Objective Vital Signs - 12hr 10/30/20 10/31/20 23:43 05:46 Temperature 98.4 F 98.4 F Pulse Rate 76 65 Respiratory 18 18 Rate Blood Pressure 124/72 126/90 O2 Sat by Pulse 94 93 Oximetry CBC and BMP: 10/31/20 05:40 10/31/20 05:40 ABG, PT/INR, D-dimer: PT/INR, D-dimer D-Dimer 872.83 ng/mlDDU (0-234) H 10/22/20 14:04 Abnormal lab findings: Abnormal Labs 10/22/20 10/22/20 10/22/20 12:16 12:16 14:04 WBC 12.3 H RBC 5.12 H Hgb 15.6 H Hct 47.2 H RDW Seg Neuts % (Manual) 79.0 H Lymphocytes % (Manual) Seg Neutrophils # Man 9.7 H Lymphocytes # (Manual) D-Dimer 872.83 H Sodium 132 L Potassium Carbon Dioxide 19 L BUN 47 H Creatinine 4.2 H Glucose 123 H AST 127 H ALT 113 H Lactate Dehydrogenase C-Reactive Protein Albumin 3.6 L Urine Creatinine Urine Chloride Coronavirus (PCR) 10/22/20 10/23/20 10/23/20 14:04 07:06 07:06 WBC RBC 5.06 H Hgb 15.6 H Hct 46.0 H RDW Seg Neuts % (Manual) 86.0 H Lymphocytes % (Manual) 4.0 L Seg Neutrophils # Man 8.4 H Lymphocytes # (Manual) 0.4 L D-Dimer Sodium 133 L Potassium 5.5 H Carbon Dioxide 21 L BUN 45 H Creatinine 3.2 H Glucose 150 H AST ALT Lactate Dehydrogenase 709 H C-Reactive Protein 17.30 H Albumin Urine Creatinine Urine Chloride Coronavirus (PCR) 10/23/20 10/23/20 10/24/20 13:00 Unknown 04:58 WBC 15.7 H RBC Hgb Hct 46.9 H RDW 15.5 H Seg Neuts % (Manual) Lymphocytes % (Manual) Seg Neutrophils # Man Lymphocytes # (Manual) D-Dimer Sodium Potassium Carbon Dioxide BUN Creatinine Glucose AST ALT Lactate Dehydrogenase C-Reactive Protein Albumin Urine Creatinine 147.6 H Urine Chloride 14.1 L Coronavirus (PCR) Positive A 10/24/20 10/25/20 10/25/20 04:58 08:21 08:21 WBC 17.4 H RBC 5.08 H Hgb Hct 46.1 H RDW Seg Neuts % (Manual) Lymphocytes % (Manual) Seg Neutrophils # Man Lymphocytes # (Manual) D-Dimer Sodium 135 L Potassium 5.9 H Carbon Dioxide 21 L BUN 46 H 38 H Creatinine 2.3 H 1.8 H Glucose 147 H 119 H AST 87 H 51 H ALT 129 H 105 H Lactate Dehydrogenase C-Reactive Protein Albumin 3.5 L 3.2 L Urine Creatinine Urine Chloride Coronavirus (PCR) 10/26/20 10/26/20 10/27/20 06:40 06:40 06:49 WBC 14.5 H RBC 5.05 H Hgb Hct 46.3 H RDW Seg Neuts % (Manual) Lymphocytes % (Manual) Seg Neutrophils # Man Lymphocytes # (Manual) D-Dimer Sodium 136 L Potassium Carbon Dioxide BUN 31 H 29 H Creatinine 1.5 H 1.4 H Glucose 136 H 126 H AST 43 H ALT 90 H 87 H Lactate Dehydrogenase C-Reactive Protein Albumin 3.3 L 3.1 L Urine Creatinine Urine Chloride Coronavirus (PCR) 10/27/20 10/29/20 10/29/20 06:49 05:12 05:12 WBC 19.0 H 27.6 H RBC 5.17 H 5.29 H Hgb 16.1 H Hct 47.0 H 48.6 H RDW Seg Neuts % (Manual) Lymphocytes % (Manual) Seg Neutrophils # Man Lymphocytes # (Manual) D-Dimer Sodium Potassium Carbon Dioxide BUN 28 H Creatinine Glucose 134 H AST ALT Lactate Dehydrogenase C-Reactive Protein Albumin Urine Creatinine Urine Chloride Coronavirus (PCR) 10/30/20 10/30/20 10/31/20 05:18 05:18 05:40 WBC 27.3 H RBC Hgb Hct RDW Seg Neuts % (Manual) Lymphocytes % (Manual) Seg Neutrophils # Man Lymphocytes # (Manual) D-Dimer Sodium 135 L Potassium Carbon Dioxide BUN 27 H 26 H Creatinine Glucose 154 H 167 H AST ALT Lactate Dehydrogenase C-Reactive Protein Albumin Urine Creatinine Urine Chloride Coronavirus (PCR) 10/31/20 05:40 WBC 28.1 H RBC 5.27 H Hgb 15.4 H Hct 48.0 H RDW Seg Neuts % (Manual) Lymphocytes % (Manual) Seg Neutrophils # Man Lymphocytes # (Manual) D-Dimer Sodium Potassium Carbon Dioxide BUN Creatinine Glucose AST ALT Lactate Dehydrogenase C-Reactive Protein Albumin Urine Creatinine Urine Chloride Coronavirus (PCR)
--- NOTE | 2020-10-31 13:17 | Discharge Summary ---
Providers - Providers Date of Admission: 10/22/20 16:29 Date of discharge: 10/31/20 Attending physician: CITLALY DENISE 10/23/20 07:44 Consult to Physician [CONS] Routine Comment: Consulting Provider: KONSTANTIN CRUZ Physician Instructions: Reason For Exam: covid pnuemonia 10/23/20 07:45 Consult to Physician [CONS] Routine Comment: Consulting Provider: ELVI HANNAH Physician Instructions: Reason For Exam: covid pneumonia 10/23/20 07:50 Consult to Physician [CONS] Routine Comment: Consulting Provider: PRISCILA EMANUEL Physician Instructions: Reason For Exam: KACIE Primary care physician: REACH TRUCK OPERATOR Hospitalization Condition: Serious Disposition: 01 HOME / SELF CARE / HOMELESS Final Discharge Diagnosis (Prints w/discharge instructions): Acute hypoxemic respiratory failure. Bilateral pneumonia due to COVID-19. Morbid obesity. Acute kidney injury with vasomotor nephropathy. Hyperkalemia, resolved. Leukocytosis, steroid-induced Time spent for discharge: 34 minutes Core Measure Documentation - Palliative Care Palliative Care/ Comfort Measures: Not Applicable - Core Measures Any of the following diagnoses?: none Exam - Constitutional Vitals: Temp Pulse Resp BP Pulse Ox 98.5 F 92 H 20 142/87 90 10/31/20 11:08 10/31/20 11:08 10/31/20 11:08 10/31/20 11:08 10/31/20 11:08 Plan Activity: advance as tolerated Weight Bearing Status: Weight Bear as Tolerated Diet: low fat, low salt Follow up with: AMI HAGEN MD [Primary Care Provider] - 7 Days ELVI HANNAH MD [Staff Physician] - 7 Days Prescriptions: Albuterol Mdi (or & Nicu Only) [ProAir HFA Inhaler] 2 puff IH QID PRN #8.5 gram PRN Reason: Shortness Of Breath Ascorbic Acid [Vitamin C] 500 mg PO BID #7 tablet Cholecalciferol Vit D3 [Vitamin D3 1,000 UNIT TAB] 1,000 unit PO QDAY #7 tablet Zinc Sulfate 220 mg PO BID #7 capsule
[2020-10-31 17:06] VITALS: BP 135/77
== END 2020-10-31 22:00 | disposition home or self-care (01) | DRG 177 ==
LOC: ED 11:22 → 3A 16:29
PROVIDERS: ADMIT Internal Medicine; ATTEND Internal Medicine
PROC: XW033E5 Introduction of Remdesivir Anti-infective into Peripheral Vein, Percutaneous Approach, New Technology Group 5 (ICD-10-PCS; principal; 2020-10-24)
DX: U07.1 COVID-19 (principal); J12.82 Pneumonia due to coronavirus disease 2019; N17.0 Acute kidney failure with tubular necrosis; J96.01 Acute respiratory failure with hypoxia; E66.2 Morbid (severe) obesity with alveolar hypoventilation; Z68.37 Body mass index [BMI] 37.0-37.9, adult; E87.5 Hyperkalemia; D72.829 Elevated white blood cell count, unspecified; T38.0X5A Adverse effect of glucocorticoids and synthetic analogues, initial encounter
CPT/HCPCS: 36415; 71046; 76770; 80048; 80053; 81001; 82436; 82570; 83615; 83880; 84145; 84300; 85007; 85025; 85027; 85379; 86140; 94640; 94760; 96365; G0378; J0456; J0696; J1100; J1170; J1644; J1815; J2405; J2920; J7030; J7050; U0003